=== PATIENT | male | born 1940 | race Caucasian/White ===

== ENCOUNTER 2020-01-18 12:02 | Inpatient (IN) | payer MEDICARE, OTHER, SELFPAY ==
[2020-01-18 12:06] VITALS: BP 142/77; PULSE 83; RESP 16; TEMP 36.6; O2SAT 99; BMI 22.6
--- NOTE | 2020-01-18 12:45 | RAD_ITS ---
EXAM DESCRIPTION: PORTABLE AP CHEST CLINICAL HISTORY: 79 years Male, upper back pain, chest pain upper back pain, chest pain COMPARISON: Previous portable chest obtained on 01/01/2016 FINDINGS: Surgical clips are noted in the right supraclavicular region. There appears to have been a previous right first rib resection. The rest of the thorax is intact. Sternotomy sutures are also seen. There is mild dextroscoliosis noted in the mid thoracic spine. The rest of the thorax is intact.The heart and mediastinum appear to be within normal limits. The lungs appear to be well areated without evidence of pneumonic consolidation or pleural effusion. RAD/Chest 1 View (Portable) IMPRESSION: No acute pathology or change from the prior chest of 01/01/2016 Electronically Signed: Tanmay Bojorquez, at 13:26 EST Tel , Service support ,
--- NOTE | 2020-01-18 12:46 | EKG12_ITS ---
Test Reason : CP Blood Pressure : / mmHG Vent. Rate : 067 BPM Atrial Rate : 100 BPM P-R Int : 000 ms QRS Dur : 134 ms QT Int : 452 ms P-R-T Axes : 076 -56 047 degrees QTc Int : 477 ms Sinus rhythm with 2nd degree A-V block (Mobitz I) Right bundle branch block Left anterior fascicular block Bifascicular block Minimal voltage criteria for LVH, may be normal variant Abnormal ECG Confirmed by CLARISSA CASILLAS ([id number]), research editor MIRIAM WILDER ([id number]) on 01/19/2020 3:02:18 PM Referred By: MARYJANE/FELICIA Confirmed By:CLARISSA CASILLAS
[2020-01-18 13:27] LABS: D-Dimer Quantitative (DVT/PE) 1.51 FEU/ug/m (0.27-0.49)
[2020-01-18] MEDS: 0.9% Normal Saline 1,000 ML 150 ML IV (13:31)
[2020-01-18 13:42] LABS: AST(SGOT) 11 U/L (15-37); Alanine Aminotransfer ALT/SGPT 14 U/L (16-61); Albumin, Serum 3.6 g/dL (3.2-5.0); Alkaline Phosphatase 121 U/L (45-117); Anion Gap 6 (5-15); BUN 38 mg/dL (7-18); BUN/Creat Ratio 18.4 RATIO (10-20); Calcium,Total 9.3 mg/dL (8.5-10.1); Chloride 110 mmol/L (98-107); Creatinine, Serum 2.07 mg/dL (0.70-1.30); EST Glomerular Filtration Rate 33 mL/min (>60); Est Glom Filt Rate - Afr Amer 40 mL/min (>60); Estimated Creatinine Clearance 30.88 ml/min; Globulin 3.7 g/dL (2.2-4.2); Glucose 93 mg/dL (74-106); Lipase 92 U/L (73-393); Potassium 4.6 mmol/L (3.5-5.1); Protein, Total 7.3 g/dL (6.4-8.2); Sodium Level 141 mmol/L (136-145)
--- NOTE | 2020-01-18 13:46 | VDLE_ITS ---
Reason For Study: elevated D-Dimer RIGHT LEFT GSV is normal. GSV is normal. CFV is compressible, spontaneous, phasic, CFV is compressible, spontaneous, phasic, competent and demonstrates normal competent, and demonstrates normal augmentation. augmentation. FV is compressible, spontaneous, phasic, FV is compressible, spontaneous, phasic, competent and demonstrates normal competent and demonstrates normal augmentation. augmentation. POP V is compressible, spontaneous, phasic, POP V is compressible, spontaneous, phasic, competent and demonstrates normal competent and demonstrates normal augmentation. augmentation. T/P Trunk is compressible. T/P Trunk is compressible. PTV is compressible. PTV is compressible. RT PerV is compressible. LT PerV is compressible. Procedure Exam performed portable in ED. The exam was diagnostic. A preliminary report was called and/or faxed to Dr. Campos. Interpretation Summary No evidence for acute deep venous thrombosis bilateral lower extremities with patent and compressible bilateral great saphenous veins. Ordering Physician: Stefania Campos Performed By: Uche Cotton RVT
--- NOTE | 2020-01-18 13:52 | ED.DCSUM_ITS ---
- ER Visit Summary Date of Service: 01/18/20 Chief Complaint: [Chest and back pain] History of Present Illness: The patient is a 79 M [presents the emergency department with chest and back pain that started 2 to 3 days ago. Patient denies any injury. Patient describes it as right-sided and is worse with b reathing. Patient states that it sharp. He is never had pain like this before. Patient states that he ran out of his medications 2 weeks ago and is wondering if it may not be related to that. Patient does have history of coronary artery disease, history of GERD, AAA repair, history of lung cancer, and history of prior DVT. Patient not currently anticoagulated.] Physical Examination: [HEENT-PERRLA, EOMI. Cranial nerves II through XII grossly intact. TMs clear. Mucous membranes moist. No adenopathy. Cardiovascular-regular rate and rhythm without murmur or ectopy Lungs-clear to auscultation, chest wall stable without crepitus or subcu emphysema Abdomen-normoactive bowel sounds, soft, nontender, no rebound or rigidity, no peritoneal signs. Extremities-intact ?4, normal range of motion, normal pulses, atraumatic] Test Results: [EKG obtained arrival shows sinus rhythm with a ventricular rate of 67 bpm with a bifascicular block. CBC with it showing of 8.2, hemoglobin 14, hematocrit 43, plates 186. Chemistries unremarkable. BUN was 38 and creatinine 2.07. Lipase was 92. LFTs were normal. D-dimer was elevated 1.51. Troponin is less than 0.015. Chest x-ray showed nothing acute.] Emergency Department Course and Treatment: [Case was discussed with hospitalist who recommended starting heparin and obtaining venous Dopplers of the lower extremities. Those results will be pending. Patient will be admitted as he may require further evaluation such as VQ scan to evaluate for PE.] Treatment Plan: [Admit] Disposition: [Admit] Impression: [Chest pain-etiology uncertain] This note was generated with [employer] W[employer] ? dictation software. It may contain incorrect words, spelling, and punctuation that were not noted in review of the chart prior to signing ED Disposition - Plan for ED Patient: Referrals: Jarred Vicente MD [Primary Care Provider] -
--- NOTE | 2020-01-18 13:56 | NURSING ---
PCU OBS CP WHITE
--- NOTE | 2020-01-18 14:17 | PCM.HP.STD ---
Problem List (1) Chest pain Status: Acute Qualifiers: Chest pain type: unspecified Qualified Code(s): R07.9 - Chest pain, unspecified (2) Mobitz (type) I (Wenckebach's) atrioventricular block Status: Acute (3) GERD (gastroesophageal reflux disease) Status: Chronic Qualifiers: Esophagitis presence: esophagitis presence not specified Qualified Code(s): K21.9 - Gastro-esophageal reflux disease without esophagitis (4) CAD (coronary artery disease) Status: Chronic Qualifiers: Coronary Disease-Associated Artery/Lesion type: unspecified vessel or lesion type [place] vs. transplanted heart: unspecified whether [place] or transplanted heart Associated angina: angina presence unspecified Qualified Code(s): I25.10 - Atherosclerotic heart disease of [place] coronary artery without angina pectoris (5) History of malignant neoplasm of bronchus and lung Status: Chronic (6) History of venous thrombosis and embolism Status: Chronic (7) Aortocoronary bypass status Status: Chronic (8) AAA (abdominal aortic aneurysm) Status: Chronic Qualifiers: Presence of rupture: without rupture Qualified Code(s): I71.4 - Abdominal aortic aneurysm, without rupture History of Present Illness Date of Admission: 01/18/20 Chief Complaint: Chest pain, dyspnea The patient is a 79 y/o M w/ PMHx: GERD, Hx DVT, CAD s/p CABG x 4 2005, HTN, HLD, Former Tobacco use, Hx AAA s/p repair, Hx Lung CA s/p chemotherapy and partial RUL lobectomy w/ rib portion x 2 resected concurrently who presents to the [facility] ED on 01/18/20 with history of unfortunately missing several of his medications including his beta-christiano therapy x2 weeks secondary to need of refills with onset since chest pressure in the central region with radiation towards his back in the mid region between the scapula, intermittent, at its worse 7 out of 8 in severity with no radiation to the extremity specifically and no specific nausea, emesis, diaphoresis but noted sensation of dyspnea, unclear if worse with activity prompting eventual ED presentation. He notes that the onset was following lack of his medications. Work-up in the ED included T 97.8, heart rate 83 but in the ED varied into the 50s to 80s, BP 142/77, respiratory rate 16, 99% on room air, d-dimer 1.51, CMP with chloride 110, BUN/creatinine 38/2.07, AST/ALT 11/14, alk phos 121, troponin less than 0.015, lipase 92, chest x-ray with no acute cardial pulmonary findings, duplex ultrasound bilateral lower extremities with no evidence of acute DVT with patent and compressible bilateral greater saphenous veins, EKG with sinus rhythm with a rate of 67 with a bifascicular block with evidence of new onset Mobitz type I. In the ED given ED high suspicion of possible pulmonary embolism as etiology patient initiated on heparin drip with planned VQ scan given renal dysfunction. Upon evaluation of EKG did note new onset Mobitz type I and reviewed with cardiology as some concern given his presentation whether or not this would be symptomatic with plan continued hold of patient's beta-christiano therapy and continue telemetry monitoring. Past Medical History Past Medical History (Chronic Problems): Chronic Problems GERD (gastroesophageal reflux disease) (Chronic) CAD (coronary artery disease) (Chronic) History of malignant neoplasm of bronchus and lung (Chronic) History of venous thrombosis and embolism (Chronic) History of tobacco use (Chronic) History of esophageal reflux (Chronic) History of emphysema (Chronic) History of colitis (Chronic) Aortocoronary bypass status (Chronic) AAA (abdominal aortic aneurysm) (Chronic) Allergies No Known Allergies Allergy (Verified 03/27/16 13:53) Home Medications: Ambulatory Orders Medication Instructions Recorded Aspirin [Aspirin, Baby] 81 mg PO DAILY@0800 01/01/16 Esomeprazole Mag Trihydrate 40 mg PO DAILY 01/01/16 [Nexium] Meloxicam [Mobic] 15 mg PO DAILY 03/27/16 Metoprolol Tartrate [Lopressor 25 mg PO DAILY 03/27/16 (Beta Christiano)] Simvastatin 80 mg PO QHS 01/18/20 Surgical History: coronary bypass surgery, TURP, - - FH x4, partial right upper lobe lobectomy as well as 2 rib partial resections, AAA repair, TURP. Psychiatric History: No pertinent psych hx Lives: Spouse/ Significant Other Smoking Status: Former smoker - Patient quit cigarette tobacco usage and 1992 with prior to this approximately 1 pack/day since he was in his early teenage years. Tobacco Use: Non-smoker Alcohol: Occasional Drugs: None - *Family History Maternal History Items: - - Patient notes that his mother at age 79, unclear specific family history, denies any specific heart disease, diabetes or cancer. Paternal History Items: - - Patient notes his father passed at age 97, no specific health history, denies any heart disease, diabetes or cancer. Review of Systems Constitutional: Reports: Malaise, Weakness, Fatigue. Denies: Anorexia, Chills, Fever, Weight Change HEENT: Denies: Head Aches, Sinus Congestion, Sinus Drainage Cardiovascular: Reports: Chest Pain, Chest Pressure. Denies: Chest Tightness, Light Headedness, Orthopnea, Palpitations, Syncope Respiratory: Reports: Shortness of Breath, Shortness of breath upon exertion. Denies: Cough, Shortness of breath at rest, Sputum production Gastrointestinal: Denies: Abdominal Pain, Nausea, Vomiting Genitourinary: Denies: Dysuria Musculoskeletal: Reports: Back Pain, Joint Pain. Denies: Joint Tenderness Skin: Denies: Rash, Wounds Neurological: Denies: Numbness, Tingling, Focal weakness Psychiatric: Denies: Anxiety, Depression, Homicidal Ideations, Suicidal Ideations Hematologic/ Lymphatic: Reports: Easy Bruising. Denies: Easy Bleeding VTE Information - Inpt Only VTE Present on Admission: No VTE Mechan Device Prophylaxis: SCD's VTE Pharm Prophylaxis ordered?: Yes Patient Problems: Active and Suspected Problems Chest pain (Acute) Mobitz (type) I (Wenckebach's) atrioventricular block (Acute) Subjective: Patient seated upright in the ED bed, fatigued appearance, notes ongoing discomfort to his chest and back at this time. Objective: Physical Examination: General: awake, alert, oriented x 3 and cooperative, seated upright in the ED bed, mildly uncomfortable appearing, no acute distress. Skin: normal color, turgor, no icterus, cyanosis. HEENT: AT/NC, EOMI, PERRLA, MMM, no carotid bruits or JVD noted. Lungs: CTA bilaterally, moderate effort, moderate decrease BL bases, no rales, ronchi or wheezing. Heart:Currently mildly bradycardic with regular rhythm; no gallop, rub audible. Abdomen: soft, NTTP, ND, normal BS, no HSM. Extremities: no cyanosis, clubbing, or edema. Neurological: patient awake, alert, oriented x 3; cognitive function intact; pupils equally reactive to light and accomodation; cranial nerves II-XII grossly normal, moving all 4 extremities, no focal deficits, strength moderately global decrease secondary to acute presentation and complaints. Psychiatric: affect appears fatigued, no acute evidence of depressive or anxiety feelings. - Physical Exam Vitals/I&O's: Vital Signs Temp Pulse Resp BP Pulse Ox 97.8 F 83 16 142/77 H 99 01/18/20 12:06 01/18/20 12:06 01/18/20 12:06 01/18/20 12:06 01/18/20 12:06 Oxygen Delivery Method Room Air Weight: 172 lb Body Mass Index (BMI) 22.6 Laboratory Results 01/18/20 13:00: D-Dimer Quant (PE/DVT) 1.51 H* 01/18/20 13:00: Sodium 141, Potassium 4.6, Chloride 110 H, Carbon Dioxide 25.0, Anion Gap 6, BUN 38 H, Creatinine 2.07 H, Estim Creat Clear Calc 30.88, Est GFR (MDRD) Af Amer 40 L, Est GFR (MDRD) Non-Af 33 L, BUN/Creatinine Ratio 18.4, Glucose 93, Calcium 9.3, Total Bilirubin 0.90, AST 11 L, ALT 14 L, Alkaline Phosphatase 121 H, Troponin I < 0.015, Total Protein 7.3, Albumin 3.6, Globulin 3.7, Albumin/Globulin Ratio 1.0, Lipase 92 Current Medications Heparin Sodium (Porcine) (Heparin Na) 0 unit IV UD PRN; Protocol Sodium Chloride () 1,000 mls @ 150 mls/hr IV .[id number] [facility] Last Admin: 01/18/20 13:31 Dose: 150 mls/hr Documented by: Heparin Sodium/Dextrose () 25,000 units in 250 mls @ 11 mls/hr IV .[id number] [facility]; Protocol Assessment/Plan All Active Problems Chest pain (Acute) Mobitz (type) I (Wenckebach's) atrioventricular block (Acute) The patient is a 79 y/o M w/ PMHx: GERD, Hx DVT, CAD s/p CABG x 4 2005, HTN, HLD, Former Tobacco use, Hx AAA s/p repair, Hx Lung CA s/p chemotherapy and partial RUL lobectomy w/ rib portion x 2 resected concurrently who presents to the [facility] ED on 01/18/20 with history of unfortunately missing several of his medications including his beta-christiano therapy x2 weeks secondary to need of refills with onset since chest pressure in the central region with radiation towards his back in the mid region between the scapula, intermittent, at its worse 7 out of 8 in severity with no radiation to the extremity specifically and no specific nausea, emesis, diaphoresis but noted sensation of dyspnea, unclear if worse with activity prompting eventual ED presentation. 1. Chest Pain, Dyspnea, Unclear specific etiology with New Onset Mobitz Type I HB, ? Pulmonary Embolism given hx prio VTE: Work-up in the ED included T 97.8, heart rate 83 but in the ED varied into the 50s to 80s, BP 142/77, respiratory rate 16, 99% on room air, d-dimer 1.51, CMP with chloride 110, BUN/creatinine 38/2.07, AST/ALT 11/14, alk phos 121, troponin less than 0.015, lipase 92, chest x-ray with no acute cardial pulmonary findings, duplex ultrasound bilateral lower extremities with no evidence of acute DVT with patent and compressible bilateral greater saphenous veins, EKG with sinus rhythm with a rate of 67 with a bifascicular block with evidence of new onset Mobitz type I. Will admit to PCU, place on a monitored bed to assure no acute myocardial infarction with serial cardiac enzymes and EKGs. Given duplex ultrasound of lower extremities unremarkable will pursue VQ scan in a.m. We will continue heparin drip in interim. Continue to hold beta-christiano therapy per discussion with cardiology was consulted and will evaluate given symptomatic presentation with new heart block. If VQ scan unremarkable may need to consider stress testing. ASA, NG, morphine. 2. CAD: Status post CABG x4 in 2005, continue aspirin, holding beta-christiano therapy given new onset Mobitz type I, continue statin therapy. 3. Hypertension: Holding beta-christiano therapy, in interim PRN hydralazine. 4. Hyperlipidemia: Continue home statin regimen. AM FLP. 5. History of lung cancer, unclear type: Status post chemotherapy as well as partial right upper lobe lobectomy and rib portion x2 resection, remission, stable. 6. Former tobacco use: Encouraged continued tobacco cessation. 7. Hx AAA: s/p repair, stable, follows w/ Dr. Tapia for routine evaluation. 8. GERD: Continue home PPI. 9. DVT prophylaxis: SCDs, continue heparin drip pending VQ scan. 10. CODE status: Patient HCPOA is his significant who is present as well as his sister and living will is currently in place. Discussed CODE status at length including difference between FULL code, DNR-CCA and DNR-CC status. Following discussions about the differences in these status, requested DNR-CCA, no intubation. Advanced Care Planning Face to Face Time: 16 minutes. Code Visit OBSV E&M: 55147 Initial observation care L3 Procedures: 04263 Advncd Care Plan 30 Min
[2020-01-18] MEDS: HEPARIN/D5w 25,000 UNITS 25,000 UNITS/250 ML IV.SOLN. 11 UNITS IV (14:34)
[2020-01-18] MEDS: Heparin Injection (Vial) 5,000 UNIT/ML VIAL 5000 UNIT IV (14:37)
--- NOTE | 2020-01-18 15:25 | NM_ITS ---
CLINICAL: Male, 79 years old. LUNG CANCER RIGHT LUNG -- PARTIAL LUNG RESECTION -- SOB -- ELEVATED D-DIMER NUCLEAR VENTILATION/PERFUSION - LUNG TECHNIQUE: The patient was administered 6 mCi of Tc MAA followed by a perfusion lung scan. The patient was administered 40.7 mCi of DTPA followed by a ventilation lung scan. Comparison made to prior chest radiograph dated . COMPARISON STUDIES : CR - prior portable chest obtained on 01/18/2020. FINDINGS: The pulmonary perfusion study demonstrates decreased perfusion in the lung apices bilaterally which is matched on the left and is consistent with severe COPD. On the right side, the patient has had a pulmonary resection involving the right upper lobe and this accounts for some decreased perfusion in the right upper lobe.. There are no demonstrated segmental or subsegmental perfusion defects The ventilation study demonstrates mildly matching defects in the lung apices bilaterally again due to the previous right upper lobe pulmonary resection and COPD in the left lung apex. NM/Lung Scan Vent/Perf IMPRESSION: Low probability for pulmonary embolism with matching defects in the lung apices bilaterally due to combination of COPD and a previous right apical pulmonary partial pneumonectomy Electronically Signed: Tanmay Bojorquez, at 11:20 EST Tel , Service support ,
--- NOTE | 2020-01-18 15:25 | EKG12_ITS ---
Test Reason : CP ADMIT Blood Pressure : / mmHG Vent. Rate : 055 BPM Atrial Rate : 081 BPM P-R Int : 000 ms QRS Dur : 130 ms QT Int : 454 ms P-R-T Axes : 068 -62 051 degrees QTc Int : 434 ms Sinus rhythm with 2nd degree A-V block (Mobitz I) Left axis deviation Right bundle branch block Abnormal ECG When compared with ECG of 27-MAR-2016 13:30, Sinus rhythm is now with 2nd degree A-V block (Mobitz I) Minimal criteria for Inferior infarct are no longer Present Confirmed by ELADIO MELO, LYLE ([id number]), editorial assistant RAMOS KNAPP ([id number]) on 01/24/2020 9:02:07 AM Referred By: SHERRON Confirmed By:DEVORAH HENDRICKS MD
--- NOTE | 2020-01-18 15:25 | ECHOD_ITS ---
Reason For Study: CHEST PAIN Procedure This was a 2D Doppler, Color Flow transthoracic echocardiogram. The exam was of adequate technical quality. Exam performed portable in patient room. Left Ventricle Normal LV size. Sigmoid septum. Left ventricular systolic function is normal. The estimated ejection fraction is 65 %. Diastolic function is indeterminate. No regional wall motion abnormalities noted. Right Ventricle Normal RV size. Normal systolic function. Atria Normal left atrium. Normal right atrium. No doppler evidence for ASD. Mitral Valve There is no mitral annular calcification. Normal mitral valve. Trivial mitral valve insufficiency. Tricuspid Valve Normal tricuspid valve. Mild to moderate (1-2+) tricuspid valve insufficiency. Right ventricular systolic pressure estimated to be 39 mmHg. Aortic Valve Trisinus/trileaflet aortic valve. Normal aortic valve. Trivial eccentric aortic valve insufficiency. Pulmonic Valve The pulmonic valve is not well visualized. Mild (1+) eccentric pulmonic valve insufficiency. Great Vessels Normal sized aortic root. Pericardium/Pleural No pericardial effusion. MMode/2D Measurements & Calculations LVIDd: 4.3 cm IVSd: 1.1 cm Ao root diam: 3.3 cm LVIDs: 3.0 cm LVPWd: 1.1 cm RVDd: 2.9 cm FS: 30.9 % LAV(MOD-bp): 31.2 ml LA A4 area: 12.8 cm2 LA dimension(2D): 3.7 cm LAV(MOD-bp) Indexed: 16.3 ml/m2 LAV(MOD-sp2): 33.9 ml LAV(MOD-sp4): 27.5 ml RA A4 area: 10.8 cm2 Time Measurements MV dec time: 0.31 sec Doppler Measurements & Calculations MV E max rey: 48.6 cm/sec Lat Peak E' Rey: 9.9 cm/sec Med Peak E' Rey: 5.9 cm/sec MV A max rey: 61.2 cm/sec E/E' lat: 4.9 E/E' med: 8.2 MV E/A: 0.79 Ao V2 max: 144.0 cm/sec LV V1 max: 126.8 cm/sec PA V2 max: 145.7 cm/sec Ao max P.3 mmHg LV V1 max P.4 mmHg PI end-d rey: 107.3 cm/sec TR max rey: 298.7 cm/sec TR max P.7 mmHg Interpretation Summary Left ventricular systolic function is normal. The estimated ejection fraction is 65 %. Sigmoid septum. Trivial mitral valve insufficiency. Mild to moderate (1-2+) tricuspid valve insufficiency. Trivial eccentric aortic valve insufficiency. Mild (1+) eccentric pulmonic valve insufficiency. Right ventricular systolic pressure estimated to be 39 mmHg. Diastolic function is indeterminate. Ordering Physician: Melida Acharya Referring Physician: GEORGE FERNANDES Performed By: Roxanna Grant, RDCS, RVT
[2020-01-18 15:33] VITALS: PULSE 56
[2020-01-18 15:41] VITALS: BP 127/70; PULSE 53; RESP 16; TEMP 36.7; O2SAT 98; BMI 20.6
[2020-01-18 15:50] VITALS: BMI 20.6
[2020-01-18] MEDS: guaiFENesin 10 ML UDC (200MG/10ML) 20 ML PO (16:01)
[2020-01-18] MEDS: BENZOCAINE/MENTHOL 1 LOZENGE MUCOUS MEM (16:01)
[2020-01-18 16:10] LABS: Magnesium 1.8 mg/dL (1.6-2.6)
[2020-01-18] MEDS: HYDROcodone Bitartrate/Apap 5/325 Tablet PO (18:21)
[2020-01-18 19:00] VITALS: PULSE 66
--- NOTE | 2020-01-18 19:43 | CON.PCM_ITS ---
Problem List (1) Atrioventricular conduction disorder Status: Acute (2) PAF (paroxysmal atrial fibrillation) Status: Acute (3) CAD (coronary artery disease) Status: Chronic Qualifiers: Coronary Disease-Associated Artery/Lesion type: unspecified vessel or lesion type [place] vs. transplanted heart: unspecified whether [place] or transplanted heart Associated angina: angina presence unspecified Qualified Code(s): I25.10 - Atherosclerotic heart disease of [place] coronary artery without angina pectoris (4) Aortocoronary bypass status Status: Chronic (5) AAA (abdominal aortic aneurysm) Status: Chronic Qualifiers: Presence of rupture: without rupture Qualified Code(s): I71.4 - Abdominal aortic aneurysm, without rupture (6) HLD (hyperlipidemia) Status: Chronic (7) History of malignant neoplasm of bronchus and lung Status: Chronic (8) History of venous thrombosis and embolism Status: Chronic (9) Renal insufficiency Status: Chronic Reason for Consult Date of Consultation: 01/18/20 History of Present Illness: The patient is a 79 year old white male with a past cardiovascular history which is included underlying paroxysmal atrial fibrillation, CAD, status post CABG, abdominal aortic aneurysm status post repair, hyperlipidemia, history of lung carcinoma status post therapy, history of thromboembolic disease, who is now referred for evaluation of AV conduction system disorder superimposed upon ongoing evaluation for chest/back discomfort and an elevated d-dimer level concerning for possible thromboembolic disease. The patient states that he has not been evaluated by his primary care physician for quite some time. He states he was told recently he needed to appear for an outpatient appointment, as he had not been evaluated for quite some time, prior to his medications being refilled. He states he refused to do so because he felt fine . Thus his medications ran out with the exception of his PPI and his statin. He states he has been without his medications including his beta-christiano for at least 2 weeks. Since that time he believes he has noted a combination of chest and back discomfort. He states it is right-sided. It is somewhat chronic in nature. It bothers him in different positions. He states he does not sleep well at night because of it. He has not complained of other forms of chest discomfort, worsening shortness of breath/dyspnea, nausea, emesis, or diaphoresis. He has had no peripheral pitting edema. He does not recall having any palpitations. There has been no near syncope or syncope. He presented to the emergency department this day based upon his ongoing symptoms. His evaluation included negative troponin I levels. His d-dimer was abnormal. He was to be considered for further evaluation of thromboembolic disease with a chest CT scan although his creatinine level was elevated. Thus he was placed on IV heparin therapy and underwent a lower extremity venous duplex study which was negative. He is pending further evaluation with a VQ scan. In the interim his ECG demonstrated findings compatible with underlying sinus rhythm with a right bundle branch block pattern and subsequent cardiac rhythm findings compatible with second-degree AV block Mobitz 1 and after being placed in the PCU cardiac rhythm patterns combined to include his second-degree AV block Mobitz 1 as well as the appearance of an underlying 2-1 AV block. [] Past Medical History Allergies/Adverse Reactions: Allergies No Known Allergies Allergy (Verified 03/27/16 13:53) Home Medications: Ambulatory Orders Medication Instructions Recorded Aspirin [Aspirin, Baby] 81 mg PO DAILY@0800 01/01/16 Esomeprazole Mag Trihydrate 40 mg PO DAILY 01/01/16 [Nexium] Meloxicam [Mobic] 15 mg PO DAILY 03/27/16 Metoprolol Tartrate [Lopressor 25 mg PO DAILY 03/27/16 (Beta Christiano)] Simvastatin 80 mg PO QHS 01/18/20 Past Medical History (Chronic Problems): Chronic Problems GERD (gastroesophageal reflux disease) (Chronic) CAD (coronary artery disease) (Chronic) HLD (hyperlipidemia) (Chronic) Renal insufficiency (Chronic) History of malignant neoplasm of bronchus and lung (Chronic) History of venous thrombosis and embolism (Chronic) History of tobacco use (Chronic) History of esophageal reflux (Chronic) History of emphysema (Chronic) History of colitis (Chronic) Aortocoronary bypass status (Chronic) AAA (abdominal aortic aneurysm) (Chronic) Surgical History: coronary bypass surgery, TURP, - - FH x4, partial right upper lobe lobectomy as well as 2 rib partial resections, AAA repair, TURP. Psychiatric History: No pertinent psych hx - *Family History Maternal History Items: - - Patient notes that his mother at age 79, unclear specific family history, denies any specific heart disease, diabetes or cancer. Paternal History Items: - - Patient notes his father passed at age 97, no specific health history, denies any heart disease, diabetes or cancer. Lives: Spouse/ Significant Other Smoking Status: Former smoker - Patient quit cigarette tobacco usage and 1992 with prior to this approximately 1 pack/day since he was in his early teenage years. Tobacco Use: Non-smoker Alcohol: Occasional Drugs: None Review of Systems - Review of Systems General: Denies: Fever, Night Sweats, Fatigue Cardiovascular: Reports: Chest Discomfort. Denies: Shortness of Breath, Orthopnea, PND, Peripheral Edema, Palpitations, Lightheadedness, Dizziness, Near Syncope, Syncope Respiratory: Denies: Cough, Sputum Production, Hemoptysis Gastrointestinal: Reports: Dyspepsia. Denies: Hematemesis, Hematochezia, Melena Genitourinary: Denies: Dysuria, Hematuria Muscoloskeletal: Reports: Back Pain Skin: Denies: Rash Subjectve: This is a thin 79-year-old white male who appears to be resting reasonably comfortably at the moment in no acute distress. Objective: Vital Signs Temp Pulse Resp BP Pulse Ox 98.0 F 53 L 16 127/70 H 98 01/18/20 15:41 01/18/20 15:41 01/18/20 15:41 01/18/20 15:41 01/18/20 15:41 Oxygen Delivery Method Room Air Weight: 151 lb 14.376 oz Body Mass Index (BMI) 20.6 Intake and Output for Last 24 Hours 01/16/20 01/17/20 01/18/20 23:59 23:59 23:59 Intake Total 692.5 / 692.5 Balance 692.5 / 692.5 General: Awake, Alert, Oriented x 3, Cooperative, No Acute Distress HEENT: Atraumatic, Normocephalic, PERRL, EOMI, Sclera Non Icteric Oral: Poor Dentition Neck: Supple, Good ROM, No JVD Lungs: Clear to auscultation Cardiovascular: Regular Rhythm, Normal S1, Normal S2 Abdomen: Bowel Sounds Present, Soft, Non Tender Extremities: No edema Psych/Mental Status: Appropriate 01/18/20 13:00: D-Dimer Quant (PE/DVT) 1.51 H* 01/18/20 13:00: Sodium 141, Potassium 4.6, Chloride 110 H, Carbon Dioxide 25.0, Anion Gap 6, BUN 38 H, Creatinine 2.07 H, Est GFR (MDRD) Af Amer 40 L, Est GFR (MDRD) Non-Af 33 L, BUN/Creatinine Ratio 18.4, Glucose 93, Calcium 9.3, Total Bilirubin 0.90, Troponin I < 0.015 01/18/20 13:00: Magnesium 1.8 01/18/20 16:03: Troponin I < 0.015 Rhythm: As noted above EKG: As noted above ECHO: Left ventricle normal with an LVEF of 55% Mild MR Mild TR Mild aortic valve insufficiency Estimated RV systolic pressure 41 mmHg Stress Test: 06-06-2011 Pharmacologic stress nuclear imaging study considered abnormal with evidence of inferolateral ischemia and an LVEF of 60% Cardiac Cath: 05-31-2011 Left ventricle normal with an LVEF of 60% Left main coronary artery with distal 50% stenosis LAD with ostial 25% stenosis in proximal 95% stenosis and mid 75% stenosis LCx with ostial 50% stenosis OM 2 with 50 to 75% stenosis RCA with mid 85% stenosis Right to left collateral flow from the LAD to the RCA distribution Left subclavian artery with proximal 25% stenosis Left carotid artery with ostial 50% stenosis CARD patent Abdominal aortic tortuous with findings compatible with an infrarenal dilatation/aneurysm CT Surgery: 06-03-2011: [facility]: CARD to the LAD; SVG to the lateral circumflex; SVG to the diagonal branch; SVG to the RCA CXR: Preliminary evaluation: Status post open heart surgery changes; no acute cardiopulmonary disease process appreciated; please see official report Assessment/Plan 1. AV conduction system disorder The patient has findings compatible with underlying AV conduction system disorder with second-degree AV block Mobitz 1 as well as findings compatible with 2-1 AV block (a form of high-grade AV block). It is unclear as to how long these findings have been present as the patient has not presented for outpatient cardiovascular evaluation since his most recent outpatient cardiovascular visit on 10-18-2013. It is also unclear as to whether or not he has had any follow-up PCP evaluation with objective studies that would have captured his underlying cardiac rhythm. He has been without his beta-christiano for approximately 2 weeks. He continues with the aforementioned conduction system findings. This raises concern as to whether this is progression of his underlying cardiovascular electrical system disease process versus being related to a additional cardiovascular process or noncardiac process. At the present time he is being monitored. He is remaining without his beta- blockers or other rate limiting medications. He is going to be further evaluated from a cardiac standpoint with a transthoracic echocardiogram to reassess his left ventricular wall motion and systolic function. He is also going to be further evaluated from a noncardiac standpoint with a VQ scan to evaluate for any thromboembolic disease may be contributing to these findings. Depending upon his clinical course he may need additional cardiovascular studies noninvasive or invasive. However, he may need to be considered for EP consultation for consideration for permanent pacemaker placement based upon the concerns of 2-1 AV block being a form of high-grade AV block. If he does require permanent pacemaker placement while he is hospitalized, then, if there is no one present at [facility] to place a permanent pacemaker he may need to be transferred to a tertiary care center such as [facility] where he had his previous cardiovascular procedures performed (i.e.: CT surgery) for further EP evaluation and care. 2. Paroxysmal atrial fibrillation The patient has a remote history of paroxysmal atrial fibrillation. At the present time he will be monitored for any recurrence of any atrial dysrhythmias. He remains off her rate limiting medication and anticoagulant therapy at this time. 3. CAD status post CABG Thus far the patient has had no evidence of an acute coronary syndrome. He states he has been staying on his [id number] aspirin therapy. He can be treated with additional medication as deemed appropriate although medicine such as beta-blockers are on hold at this time based upon the concern of his conduction system disorder. He will have a follow-up echocardiogram to reassess his left ventricular wall motion systolic function. Depending upon his clinical course he may or may not need further noninvasive or invasive evaluation of his coronary/graft anatomy. However, if he does need invasive evaluation of his coronary/graft status there is concern based on his elevated creatinine level with respect to IV contrast related nephropathy. 4. Abdominal aortic aneurysm status post repair He has had a remote abdominal aortic aneurysm repair. He states he does not follow with any peripheral vascular surgeon at this time. 5. Hyperlipidemia He states he has been taking his lipid-lowering medication. 6. History of lung carcinoma He states that he is now greater than 10 years since his lung carcinoma diagnosis. He states he has not required further follow-up. 7. History of thromboembolic events He does have a history of thromboembolic events. He is at an increased risk based upon his history of lung carcinoma. He is going to undergo further evaluation for the possibility of recurrent thromboembolic events leading to his symptoms and his elevated d-dimer studies. As his creatinine level is increased this is going to be done with a VQ scan. In the interim he is on IV heparin therapy. 8. Renal insufficiency He does have renal insufficiency. This has to be taken into consideration with adjustment of medications as well as other diagnostic studies utilizing IV contrast which could lead to IV contrast related nephropathy. Comment: The patient's case was discussed at length with the patient, his female significant other, and Dr. Acharya. This note was generated using a voice recognition system and there may be incorrect words, spelling or punctuation that were not noted when reviewing the office note prior to saving.
[2020-01-18 20:45] LABS: Partial Thromboplast Time 207.4 Seconds (24.1-36.2)
[2020-01-18 21:40] VITALS: BP 138/81; PULSE 53; RESP 16; TEMP 36.7; O2SAT 99
[2020-01-18] MEDS: Atorvastatin Calcium 40 MG Tablet PO (21:58)
[2020-01-19] MEDS: MELATONIN 3 MG TABLET PO (02:19)
[2020-01-19 02:59] VITALS: PULSE 66
[2020-01-19 03:00] VITALS: BP 105/74; PULSE 61; RESP 17; TEMP 36.7; O2SAT 100
[2020-01-19 03:17] LABS: Absolute Lymphocyte Count 1.94 X10^3/uL (0.83-4.51); Absolute Neutrophil Count 6.3 X10^3/uL (2.0-7.7); Basophil# 0.03 X10^3/uL; Basophil% 0.3 % (0-1); Eosinophil# 0.45 X10^3/uL; Eosinophils% 4.7 % (0-5); Hematocrit 32.5 % (40-54); Hemoglobin 10.6 g/dL (13.0-16.5); Lymphocyte # 1.94 X10^3/ul (4.0); Lymphocyte % 20.1 % (19-41); Mean Corp Hgb Conc 32.6 g/dL (32-36); Mean Corpuscular Hgb 31.3 pg (27.0-32.0); Mean Corpuscular Volume 95.9 fL (80-94); Mean Platelet Vol. 11.8 fl (6.2-12.0); Monocyte# 0.89 X10^3/uL; Monocyte% 9.2 % (0-10); NRBC Flagged by Analyzer 0 % (0-5); Neutrophil # 6.27 X10^3/uL (2.7-7.7); Neutrophil % 64.9 % (47-70); Platelet Count 185 K/mm3 (150-450); RBC Distribution Width CV 13.3 % (11.6-14.6); RBC Distribution Width SD 47.5 fl (35.1-43.9); Red Blood Count 3.39 M/mm3 (4.6-6.2); White Blood Count 9.7 K/mm3 (4.4-11.0)
[2020-01-19 03:31] LABS: Anion Gap 6 (5-15); BUN 45 mg/dL (7-18); BUN/Creat Ratio 22.4 RATIO (10-20); Calcium,Total 8.1 mg/dL (8.5-10.1); Chloride 110 mmol/L (98-107); Creatinine, Serum 2.01 mg/dL (0.70-1.30); EST Glomerular Filtration Rate 34 mL/min (>60); Est Glom Filt Rate - Afr Amer 41 mL/min (>60); Estimated Creatinine Clearance 28.09 ml/min; Glucose 98 mg/dL (74-106); Potassium 4.2 mmol/L (3.5-5.1); Sodium Level 141 mmol/L (136-145)
[2020-01-19 07:00] VITALS: PULSE 71
[2020-01-19 07:39] VITALS: O2SAT 98
[2020-01-19 09:43] LABS: Partial Thromboplast Time 48.5 Seconds (24.1-36.2)
--- NOTE | 2020-01-19 09:52 | PN.CARD_ITS ---
Subjectve: The patient continues with his chronic right-sided chest/back discomfort. He states there is been no significant change. Objective: Vital Signs Temp Pulse Resp BP Pulse Ox 98.0 F 71 17 105/74 98 01/19/20 03:00 01/19/20 07:00 01/19/20 03:00 01/19/20 03:00 01/19/20 07:39 Oxygen Delivery Method Room Air Weight: 151 lb 14.376 oz Body Mass Index (BMI) 20.6 Intake and Output for Last 24 Hours 01/17/20 01/18/20 01/19/20 23:59 23:59 23:59 Intake Total 1001.43 / 1001.43 137.33 / 137.33 Output Total 50 / 50 120 / 120 Balance 951.43 / 951.43 17.33 / 17.33 General: Awake, Alert, Oriented x 3, Cooperative, No Acute Distress HEENT: Atraumatic, Normocephalic, PERRL, EOMI, Sclera Non Icteric Oral: Poor Dentition Neck: Supple, Good ROM, No JVD Chest Wall: Midline Sternotomy Incision Lungs: Clear to auscultation Cardiovascular: Regular Rhythm, Normal S1, Normal S2 Abdomen: Bowel Sounds Present, Soft, Non Tender Extremities: No edema Psych/Mental Status: Appropriate 01/18/20 13:00: D-Dimer Quant (PE/DVT) 1.51 H* 01/18/20 13:00: Sodium 141, Potassium 4.6, Chloride 110 H, Carbon Dioxide 25.0, Anion Gap 6, BUN 38 H, Creatinine 2.07 H, Est GFR (MDRD) Af Amer 40 L, Est GFR (MDRD) Non-Af 33 L, BUN/Creatinine Ratio 18.4, Glucose 93, Calcium 9.3, Total Bilirubin 0.90, Troponin I < 0.015 01/18/20 13:00: Magnesium 1.8 01/18/20 16:03: Troponin I < 0.015 01/18/20 20:09: APTT 207.4 H* 01/18/20 20:09: Troponin I < 0.015 01/19/20 02:58: WBC 9.7, RBC 3.39 L, Hgb 10.6 L, Hct 32.5 L, MCV 95.9 H, MCH 31.3, MCHC 32.6, Plt Count 185, MPV 11.8, Immature Gran % (Auto) 0.800, Neut % (Auto) 64.9, Lymph % (Auto) 20.1, [place] % (Auto) 9.2, Eos % (Auto) 4.7, Baso % (Auto) 0.3, Absolute Neuts (auto) 6.3, Nucleated RBC % 0 01/19/20 02:58: Sodium 141, Potassium 4.2, Chloride 110 H, Carbon Dioxide 25.0, Anion Gap 6, BUN 45 H, Creatinine 2.01 H, Est GFR (MDRD) Af Amer 41 L, Est GFR (MDRD) Non-Af 34 L, BUN/Creatinine Ratio 22.4 H, Glucose 98, Calcium 8.1 L 01/19/20 02:58: APTT 105.0 H* 01/19/20 09:25: APTT 48.5 H Rhythm: Sinus rhythm; second-degree AV block Mobitz 1 Medical Necessity - Tobacco Use Smoking Status: Former smoker - Patient quit cigarette tobacco usage and 1993 with prior to this approximately 1 pack/day since he was in his early teenage years. Tobacco Use: Non-smoker Assessment/Plan 1. AV conduction system disorder The patient has findings compatible with underlying AV conduction system disorder with second-degree AV block Mobitz 1 as well as findings compatible with 2-1 AV block (a form of high-grade AV block). It is unclear as to how long these findings have been present as the patient has not presented for outpatient cardiovascular evaluation since his most recent outpatient cardiovascular visit on 10-18-2013. It is also unclear as to whether or not he has had any follow-up PCP evaluation with objective studies that would have captured his underlying cardiac rhythm. He has been without his beta-haydee for approximately 2 weeks. This raises concern as to whether this is progression of his underlying cardiovascular electrical system disease process versus being related to a additional cardiovascular process or noncardiac process. At the present time he is being monitored. He is remaining without his beta- blockers or other rate limiting medications. He is going to be further evaluated from a cardiac standpoint with a transthoracic echocardiogram to reassess his left ventricular wall motion and systolic function. He is also going to be further evaluated from a noncardiac standpoint with a VQ scan to evaluate for any thromboembolic disease may be contributing to these findings. Depending upon his clinical course he may need additional cardiovascular studies noninvasive or invasive. However, he may need to be considered for EP consultation for consideration for permanent pacemaker placement based upon the concerns of 2-1 AV block being a form of high-grade AV block. If he does require permanent pacemaker placement while he is hospitalized, then, if there is no one present at [facility] to place a permanent pacemaker he may need to be transferred to a tertiary care center such as [facility] where he had his previous cardiovascular procedures performed (i.e.: CT surgery) for further EP evaluation and care. The above was discussed with the patient. At the present time the patient states that he does not believe he has any ongoing cardiovascular issues. He states that he may not want to proceed with permanent pacemaker placement either locally or at a tertiary care center. He will wait and see how his clinical course progresses, what his studies show, and then make a decision. 2. Paroxysmal atrial fibrillation The patient has a remote history of paroxysmal atrial fibrillation. At the present time he will be monitored for any recurrence of any atrial dysrhythmias. He remains off her rate limiting medication and anticoagulant therapy at this time. 3. CAD status post CABG Thus far the patient has had no evidence of an acute coronary syndrome. He states he has been staying on his [id number] aspirin therapy. He can be treated with additional medication as deemed appropriate although medicine such as beta-blockers are on hold at this time based upon the concern of his conduction system disorder. He will have a follow-up echocardiogram to reassess his left ventricular wall motion systolic function. Depending upon his clinical course he may or may not need further noninvasive or invasive evaluation of his coronary/graft anatomy. However, if he does need invasive evaluation of his coronary/graft status there is concern based on his elevated creatinine level with respect to IV contrast related nephropathy. 4. Abdominal aortic aneurysm status post repair He has had a remote abdominal aortic aneurysm repair. He states he does not follow with any peripheral vascular surgeon at this time. 5. Hyperlipidemia He states he has been taking his lipid-lowering medication. 6. History of lung carcinoma He states that he is now greater than 10 years since his lung carcinoma diagnosis. He states he has not required further follow-up. 7. History of thromboembolic events He does have a history of thromboembolic events. He is at an increased risk based upon his history of lung carcinoma. He is going to undergo further e valuation for the possibility of recurrent thromboembolic events leading to his symptoms and his elevated d-dimer studies. As his creatinine level is increased this is going to be done with a VQ scan. In the interim he is on IV heparin therapy. 8. Renal insufficiency He does have renal insufficiency. This has to be taken into consideration with adjustment of medications as well as other diagnostic studies utilizing IV contrast which could lead to IV contrast related nephropathy. Comment: The patient's case was discussed at length with the patient. This note was generated using a voice recognition system and there may be incorrect words, spelling or punctuation that were not noted when reviewing the office note prior to saving.
[2020-01-19] MEDS: Heparin Injection (Vial) 5,000 UNIT/ML VIAL IV (10:21)
[2020-01-19] MEDS: Aspirin 81 MG TAB.CHEW PO (10:21)
[2020-01-19] MEDS: Pantoprazole Sodium 40 MG Tablet PO (10:21)
[2020-01-19] MEDS: 0.9% Saline Lock 10 ML Syringe IV (10:22)
[2020-01-19 10:23] VITALS: BP 124/72; PULSE 68; RESP 14; TEMP 36.6; O2SAT 94
[2020-01-19] MEDS: HYDROcodone Bitartrate/Apap 5/325 Tablet PO (12:40)
--- NOTE | 2020-01-19 13:44 | DCINST_ITS ---
- Discharge Diagnoses Current Active Problems: Current Active and Chronic Problems Chest pain (Acute) Mobitz (type) I (Wenckebach's) atrioventricular block (Acute) GERD (gastroesophageal reflux disease) (Chronic) CAD (coronary artery disease) (Chronic) Atrioventricular conduction disorder (Acute) PAF (paroxysmal atrial fibrillation) (Acute) HLD (hyperlipidemia) (Chronic) Renal insufficiency (Chronic) You will use the following diet at home:: Cardiac Your food should be the consistency of: Regular Your liquids should be the consistency of: Regular/Thin Discharge Activity: Return to Normal Activity Allergies/Adverse Reactions: Allergies No Known Allergies Allergy (Verified 03/27/16 13:53) Medications to take at Discharge Aspirin [Aspirin, Baby] 81 mg PO DAILY@0800 01/01/16 Esomeprazole Mag Trihydrate [Nexium] 40 mg PO DAILY 01/01/16 Meloxicam [Mobic] 15 mg PO DAILY 03/27/16 Simvastatin 80 mg PO QHS 01/18/20 Primary Care Physician: Jarred Vicente MD [Primary Care Provider] - Please follow up with your Primary Care Physician in: 1-2 weeks Test Results: Test results from this visit will be discussed in further detail at your follow- up appointment, if applicable. Please Follow Up With: Hernandez West MD When: as directed Proposed Discharge Date: 01/19/20
--- NOTE | 2020-01-19 13:46 | PCM.DC.SUM ---
<Isiah Dunham - Last Filed: 01/19/20 13:46> Discharge Date and Diagnosis Date of Admission: 01/18/20 Date of Discharge: 01/19/20 - Primary Discharge Diagnosis Active and Suspected Problems Chest pain (Acute), elevated D dimer, PE ruled out Mobitz (type) I (Wenckebach's) atrioventricular block (Acute) PAF (paroxysmal atrial fibrillation) (Acute) CKD III GERD CAD Hx lung cancer Hx VTE Hx AAA with repair - Secondary Discharge Diagnosis Chronic Problems GERD (gastroesophageal reflux disease) (Chronic) CAD (coronary artery disease) (Chronic) HLD (hyperlipidemia) (Chronic) Renal insufficiency (Chronic) History of malignant neoplasm of bronchus and lung (Chronic) History of venous thrombosis and embolism (Chronic) History of tobacco use (Chronic) History of esophageal reflux (Chronic) History of emphysema (Chronic) History of colitis (Chronic) Aortocoronary bypass status (Chronic) AAA (abdominal aortic aneurysm) (Chronic) Hospital Course and Treatment Imaging Results: RAD/Chest 1 View (Portable) IMPRESSION: No acute pathology or change from the prior chest of 01/01/2016 NM/Lung Scan Vent/Perf IMPRESSION: Low probability for pulmonary embolism with matching defects in the lung apices bilaterally due to combination of COPD and a previous right apical pulmonary partial pneumonectomy Venous Duplex Interpretation Summary No evidence for acute deep venous thrombosis bilateral lower extremities with patent and compressible bilateral great saphenous veins. Cons[facility]: None Procedures: None Summary of Care Provided: Hospital Course: The patient is a 79 year old M with past medical history of of CAD, paroxysmal atrial fibrillation, AAA with prior repair, lung cancer with prior lobectomy, who presented to the emergency room with complaints of chest pain. He was found to have negative chest x-ray, elevated d-dimer, negative troponin and EKG demonstrating second-degree AV block, type I. Patient was on a beta-haydee at home. This was held. He was admitted to PCU on telemetry. Cardiology was consulted. Venous US and Lung VQ scan were obtained which did not show clots. Cardiology was considering referral to [facility] for pacemaker, however the patient was adament that he was not interested in having a pacemaker, and that with the negative VQ results he wanted to go home. Trop was negative x 3, and he had no further chest pain. He was discharged home in stable condition, and should remain off metoprolol. He will need follow up with his PCP in 1-2 weeks and with cardiology as directed. This patient was seen by Isiah Dunham PA-C under the supervision of Dr. Chou.[] - Physical Exam Vitals/I&O's: Vital Signs Temp Pulse Resp BP Pulse Ox 97.9 F 68 14 124/72 H 94 01/19/20 10:23 01/19/20 10:23 01/19/20 10:23 01/19/20 10:23 01/19/20 10:23 Oxygen Delivery Method Room Air Weight: 151 lb 14.376 oz Body Mass Index (BMI) 20.6 Intake and Output for Last 24 Hours 01/17/20 01/18/20 01/19/20 23:59 23:59 23:59 Intake Total 1001.43 / 1001.43 562.16 / 562.16 Output Total 50 / 50 120 / 120 Balance 951.43 / 951.43 442.16 / 442.16 General: Alert, Oriented x3, Cooperative HEENT: Atraumatic, PERRLA, EOMI, Normocephalic Neck: Supple, No JVD, Negative Carotid Bruits Lungs: Clear to auscultation, Normal air movement Cardiovascular: Regular rate, No murmurs Abdomen: Bowel Sounds Present, Soft, Non Tender Extremities: No edema, Capillary Refill Less than 3 Seconds Skin: No rashes, No breakdown Musculoskeletal: No Tenderness to Palpation of Joints or Extremities Neurological: Cranial nerves II-XII grossly intact Psych/Mental Status: Normal Affect, Appropriate, Alert and oriented to time, place, person, mood and affect Laboratory Results 01/18/20 13:00: Magnesium 1.8 01/18/20 16:03: Troponin I < 0.015 01/18/20 20:09: APTT 207.4 H* 01/18/20 20:09: Troponin I < 0.015 01/19/20 02:58: WBC 9.7, RBC 3.39 L, Hgb 10.6 L, Hct 32.5 L, MCV 95.9 H, MCH 31.3, MCHC 32.6, RDW Std Deviation 47.5 H, RDW Coeff of Chandana 13.3, Plt Count 185, MPV 11.8, Immature Gran % (Auto) 0.800, Neut % (Auto) 64.9, Lymph % (Auto) 20.1, Fannin % (Auto) 9.2, Eos % (Auto) 4.7, Baso % (Auto) 0.3, Absolute Neuts (auto) 6.3, Absolute Lymphs (auto) 1.94, Nucleated RBC % 0 01/19/20 02:58: Sodium 141, Potassium 4.2, Chloride 110 H, Carbon Dioxide 25.0, Anion Gap 6, BUN 45 H, Creatinine 2.01 H, Estim Creat Clear Calc 28.09, Est GFR (MDRD) Af Amer 41 L, Est GFR (MDRD) Non-Af 34 L, BUN/Creatinine Ratio 22.4 H, Glucose 98, Calcium 8.1 L 01/19/20 02:58: APTT 105.0 H* 01/19/20 09:25: APTT 48.5 H Current Medications Acetaminophen (Tylenol) 650 mg PO Q6H PRN PRN PRN Reason: Pain Score 1-10/Temp > 100.7 F Hydrocodone Bitart/Acetaminophen ([place] 5mg-325mg) 1 tablet PO Q4H PRN PRN PRN Reason: Pain Score 1-10/10 Last Admin: 01/19/20 12:40 Dose: 1 tablet Documented by: Al Hydroxide/Mg Hydroxide (Mylanta Ii) 30 ml PO Q6H PRN PRN PRN Reason: Gastric Burning Albuterol Sulfate (Ventolin Aerosols) 2.5 mg INHALATION Q2H PRN PRN PRN Reason: SOB/Wheezing Aspirin (Aspirin, Baby) 81 mg PO DAILY@0800 [facility] Last Admin: 01/19/20 10:21 Dose: 81 mg Documented by: Atorvastatin Calcium (Lipitor) 40 mg PO QHS [facility] Last Admin: 01/18/20 21:58 Dose: 40 mg Documented by: Glucagon () 1 mg IM .X1 PRN PRN Reason: Hypoglycemia Guaifenesin (Robitussin) 20 ml PO Q4H PRN PRN PRN Reason: COUGH Last Admin: 01/18/20 16:01 Dose: 20 ml Documented by: Heparin Sodium (Porcine) (Heparin Na) 0 unit IV UD PRN; Protocol Last Admin: 01/19/20 10:21 Dose: 1,000 unit Documented by: Heparin Sodium/Dextrose () 25,000 units in 250 mls @ 11 mls/hr IV .[id number] [facility]; Protocol Last Infusion: 01/19/20 10:28 Dose: 600 units/hr, 6 mls/hr Documented by: Dextrose (Dextrose 10%-Water) 250 mls @ 999 mls/hr IV .Q16M PRN; Protocol PRN Reason: HYPOGLYCEMIA Magnesium Hydroxide (Milk Of Magnesia) 30 ml PO DAILY PRN PRN PRN Reason: Constipation Melatonin (Melatonin) 3 mg PO QHS PRN PRN PRN Reason: INSOMNIA Last Admin: 01/19/20 02:19 Dose: 3 mg Documented by: Morphine Sulfate () 2 mg IV Q3H PRN PRN PRN Reason: Pain Score 6-10/10 Nitroglycerin (Nitrostat) 0.4 mg SUBLINGUAL Q5M PRN PRN Reason: CARDIAC/CHEST PAIN Ondansetron HCl (Zofran) 4 mg IV Q8H PRN PRN PRN Reason: NAUSEA/VOMITING Pantoprazole Sodium (Protonix) 40 mg PO DAILY [facility] Last Admin: 01/19/20 10:21 Dose: 40 mg Documented by: Prochlorperazine Edisylate (Compazine Iv) 5 mg IV Q4H PRN PRN PRN Reason: Breakthrough Nausea/Vomiting Psyllium Hydrophilic Mucilloid (Metamucil) 1 packet PO DAILY PRN PRN PRN Reason: Constipation Senna/Docusate Sodium (Senokot-S, Karina-Colace) 2 tablet PO BID PRN PRN PRN Reason: Constipation Sodium Chloride () 10 - 40 ml IV UD PRN PRN Reason: SALINE FLUSH Last Admin: 01/19/20 10:22 Dose: 10 ml Documented by: Throat Lozenges (Cepacol Sore Throat Lozenge) 1 lozenge MUCOUS MEM Q2H PRN PRN PRN Reason: SORE THROAT Last Admin: 01/18/20 16:01 Dose: 1 lozenge Documented by: Discharge Diet: Low fat/ Low Cholesterol, 2000 mg Sodium Diet Discharge Activity: Return to Normal Activity Home Medications: Medications to take at Discharge Aspirin [Aspirin, Baby] 81 mg PO DAILY@0800 01/01/16 Esomeprazole Mag Trihydrate [Nexium] 40 mg PO DAILY 01/01/16 Meloxicam [Mobic] 15 mg PO DAILY 03/27/16 Simvastatin 80 mg PO QHS 01/18/20 Primary Care Physician: Jarred Vicente MD [Primary Care Provider] - Please follow up with your Primary Care Physician in: 1-2 weeks Please Follow Up With: Hernandez West MD When: as directed Disposition: Home Minutes spent on discharge:: 35 Patient Condition:: Stable Medical Necessity - Tobacco Use Smoking Status: Former smoker - Patient quit cigarette tobacco usage and 1993 with prior to this approximately 1 pack/day since he was in his early teenage years. Tobacco Use: Non-smoker Meaningful Use Info Meaningful Use Diagnoses (Choose all that apply): None applicable <Haroon Chou - Last Filed: 01/19/20 14:38> Discharge Date and Diagnosis - Secondary Discharge Diagnosis Chronic Problems GERD (gastroesophageal reflux disease) (Chronic) CAD (coronary artery disease) (Chronic) HLD (hyperlipidemia) (Chronic) Renal insufficiency (Chronic) History of malignant neoplasm of bronchus and lung (Chronic) History of venous thrombosis and embolism (Chronic) History of tobacco use (Chronic) History of esophageal reflux (Chronic) History of emphysema (Chronic) History of colitis (Chronic) Aortocoronary bypass status (Chronic) AAA (abdominal aortic aneurysm) (Chronic) Hospital Course and Treatment Summary of Care Provided: This patient was seen in conjunction with Isiah Dunham PA-C . I have independently interviewed and examined the patient and reviewed pertinent historical, laboratory, and other data. Please refer to Isiah Dunham PA-C note for details of this patient's presentation, findings, and recommendations. I have reviewed Isiah Dunham PA-C note and concur with documented findings. In brief, patient 79-year-old gentleman with multiple cardiac history including CAD paroxysmal A. fib AAA with previous repair lung cancer with prior lobectomy who presented to the emergency department with chest pain. Admitted to monitored bed subsequent monitoring demonstrated second-degree AV block type I. Consult was placed to cardiology. Patient was seen in consultation by Dr. West his note and recommendations reviewed. Dr. West's recommendation was for possible consideration for pacemaker placement patient was however not interested in any of that. He insisted to be discharged. Hospital course: As documented above - Physical Exam Vitals/I&O's: Vital Signs Temp Pulse Resp BP Pulse Ox 97.9 F 68 14 124/72 H 94 01/19/20 10:23 01/19/20 10:23 01/19/20 10:23 01/19/20 10:23 01/19/20 10:23 Oxygen Delivery Method Room Air Weight: 68.9 kg Body Mass Index (BMI) 20.6 Intake and Output for Last 24 Hours 01/17/20 01/18/20 01/19/20 23:59 23:59 23:59 Intake Total 1001.43 / 1001.43 562.16 / 562.16 Output Total 50 / 50 120 / 120 Balance 951.43 / 951.43 442.16 / 442.16 Laboratory Results 01/18/20 13:00: Magnesium 1.8 01/18/20 16:03: Troponin I < 0.015 01/18/20 20:09: APTT 207.4 H* 01/18/20 20:09: Troponin I < 0.015 01/19/20 02:58: WBC 9.7, RBC 3.39 L, Hgb 10.6 L, Hct 32.5 L, MCV 95.9 H, MCH 31.3, MCHC 32.6, RDW Std Deviation 47.5 H, RDW Coeff of Chandana 13.3, Plt Count 185, MPV 11.8, Immature Gran % (Auto) 0.800, Neut % (Auto) 64.9, Lymph % (Auto) 20.1, Fannin % (Auto) 9.2, Eos % (Auto) 4.7, Baso % (Auto) 0.3, Absolute Neuts (auto) 6.3, Absolute Lymphs (auto) 1.94, Nucleated RBC % 0 01/19/20 02:58: Sodium 141, Potassium 4.2, Chloride 110 H, Carbon Dioxide 25.0, Anion Gap 6, BUN 45 H, Creatinine 2.01 H, Estim Creat Clear Calc 28.09, Est GFR (MDRD) Af Amer 41 L, Est GFR (MDRD) Non-Af 34 L, BUN/Creatinine Ratio 22.4 H, Glucose 98, Calcium 8.1 L 01/19/20 02:58: APTT 105.0 H* 02/26/20 09:25: APTT 48.5 H Code Visit OBSV E&M: [id number] Observation care discharge
--- NOTE | 2020-01-19 14:13 | PHA.DC.MR ---
Pharmacy Service has performed discharge medication reconciliation for this patient. The patient's discharge medication list was reviewed for discrepancies and discrepancies were resolved. Home Medications Aspirin [Aspirin, Baby] 81 mg PO DAILY@0800 01/01/16 Esomeprazole Mag Trihydrate [Nexium] 40 mg PO DAILY 01/01/16 Meloxicam [Mobic] 15 mg PO DAILY 03/27/16 Simvastatin 80 mg PO QHS 01/18/20
== END 2020-01-19 14:20 | disposition home or self-care (01) | DRG 313 ==
LOC: ED 13:13 → PCU 14:01
PROVIDERS: Admitting Provider Family Medicine; Emergency Provider Emergency Medicine; PCP Family Medicine; Visit Provider Internal Medicine
DX: R07.9 Chest pain, unspecified (principal); I44.1 Atrioventricular block, second degree; I48.0 Paroxysmal atrial fibrillation; I25.10 Atherosclerotic heart disease of native coronary artery without angina pectoris; E78.5 Hyperlipidemia, unspecified; N18.3 Chronic kidney disease, stage 3 (moderate); I12.9 Hypertensive chronic kidney disease with stage 1 through stage 4 chronic kidney disease, or unspecified chronic kidney disease; K21.9 Gastro-esophageal reflux disease without esophagitis; Z86.79 Personal history of other diseases of the circulatory system; Z95.1 Presence of aortocoronary bypass graft; Z85.118 Personal history of other malignant neoplasm of bronchus and lung; Z90.2 Acquired absence of lung [part of]; Z87.891 Personal history of nicotine dependence; Z86.718 Personal history of other venous thrombosis and embolism; J43.9 Emphysema, unspecified; Z92.21 Personal history of antineoplastic chemotherapy; Z66 Do not resuscitate
CPT/HCPCS: 36415; 71045; 78582; 80048; 80053; 83690; 83735; 84484; 85025; 85379; 85730; 93005; 93306; 93970; 99251; 99285; A9540; A9567; J7030; A4216; G0463

== ENCOUNTER → 2020-01-31 | Outpatient (CLI) | payer MEDICARE, OTHER, SELFPAY ==
[2020-01-18 15:41] VITALS: BMI 20.6
[2020-01-24 10:54] VITALS: BMI 20.2
== END | disposition home or self-care (01) ==
LOC: PSN 08:57
PROVIDERS: PCP Family Medicine; Referring Provider Nurse Practitioner Family; Visit Provider Nurse Practitioner Family
DX: I48.0 Paroxysmal atrial fibrillation (principal); I45.89 Other specified conduction disorders
CPT/HCPCS: 93225; 93226

== ENCOUNTER 2021-10-15 08:13 | Emergency (ER) | payer MEDICARE, SELFPAY ==
[2021-10-15 08:14] VITALS: BP 165/106; PULSE 74; RESP 20; TEMP 35.5; O2SAT 97; BMI 19.8
[2021-10-15 08:17] VITALS: BP 165/106; PULSE 74; RESP 20; TEMP 35.5; O2SAT 97
--- NOTE | 2021-10-15 08:21 | EX.ED.DYSGE1 ---
HPI History of Present Illness Chief Complaint: Nausea/Vomiting/Diarrhea Informant: patient and EMS Narrative Narrative: 81-year-old male states that he felt fine when he woke up this morning. He went and had a can of Pepsi. Went back and sat in his chair where he was going to sleep and began to vomit. He states he is also experienced diarrhea this morning. States he feels extremely nauseous. He denies any bad food exposure or recent antibiotics. Denies any fever. EMS administered Zofran on the way to the hospital. He notes a generalized abdominal soreness PFSH [facility] Medical History (Updated 10/15/21 @ 10:[address] Marvin Martinez DO) AAA (abdominal aortic aneurysm) Abdominal aortic aneurysm without rupture Atherosclerotic heart disease of [place] coronary artery without angina pectoris Atrioventricular conduction disorder CAD (coronary artery disease) Chest pain GERD (gastroesophageal reflux disease) History of colitis History of emphysema History of esophageal reflux History of malignant neoplasm of bronchus and lung History of tobacco use History of venous thrombosis and embolism HLD (hyperlipidemia) Mobitz (type) I (Wenckebach's) atrioventricular block PAF (paroxysmal atrial fibrillation) Renal insufficiency Home Medications ondansetron 4 mg PO Q6H PRN PRN #15 tab 10/15/21 [Rx Last Taken Unknown] Allergy/AdvReac Type Severity Reaction Status Date / Time No Known Allergies Allergy Verified 10/15/21 08:18 Surgical History History of abdominal aortic aneurysm repair History of coronary artery bypass surgery (~06/03/11) History of transurethral resection of prostate S/P partial lobectomy of lung Social History Smoking Status: Former smoker alcohol intake: current details: occasional substance use type: does not use ROS ROS ED Constitutional Constitutional ED: Denies chills, fever(s) or weight loss Eyes Eyes: Denies change in vision or diplopia ENT ENT ED: Denies ear pain, rhinorrhea or sore throat Cardiovascular Cardiovascular: Denies chest pain, orthopnea, palpitations or racing heartbeat Respiratory/Chest Respiratory/Chest: Denies cough, dyspnea or orthopnea Gastrointestinal Gastrointestinal: Reports abdominal pain, diarrhea, nausea and vomiting Genitourinary Genitourinary ED: Denies dysuria, hematuria or urinary frequency Musculoskeletal Musculoskeletal: Denies arthralgias or myalgias Integumentary Denies abscess or rash Neurologic Neurologic: Denies headache(s) or weakness Psychiatric Psychiatric: Denies anxiety, depression, suicidal ideation or suicidal thoughts Endocrine Endocrinology: Denies polydipsia, polyphagia or polyuria Allergic/Immunologic Allergic/Immunologic ED: Denies mouth swelling, tongue swelling or urticaria EXAM Physical Exam Const Vital Signs: 10/15/21 08:14 10/15/21 08:17 10/15/21 10:27 Temperature 95.9 F L 95.9 F L Temperature Source Temporal Temporal Pulse Rate 74 74 72 Respiratory Rate 20 H 20 H 30 H Blood Pressure 165/106 H 165/106 H 169/82 H Blood Pressure Mean 125 125 111 Pulse Ox 97 97 99 Oxygen Delivery Method Room Air Room Air Room Air Positive well nourished and well developed General Appearance ED: well developed HEENT Reports normocephalic, head/scalp atraumatic, TM's clear and moist mucous membranes Negative for trauma Tympanic Membrane ED: Yes TM's clear Eyes PERRL and EOMs intact bilaterally Neck no lymphadenopathy, supple and no JVD Resp normal respiratory effort and clear to auscultation bilaterally Cardio regular rate, regular rhythm and no murmurs GI normal to inspection, nondistended, normoactive bowel sounds and non-tender Palpation: soft Back/Spine no CVA tenderness and normal ROM Extremity normal to inspection General Extremety ED: Negative for edema General Extremity: Negative for edema Neuro oriented x3 and CN's II-XII intact bilaterally Sensorium / Orientation: alert Motor Exam: strength 5/5 throughout Psych mental status grossly normal Mood & Affect: Negative for depressed or tearful Skin no rashes or lesions noted and no wounds MDM MDM MDM Narrative Medical decision making narrative: White count returns at 8.8. CMP with a creatinine 2.13. Lipase slightly elevated at 530. Patient received Zofran and IV fluids. He continues to complain of abdominal pain. He received a dose of Bentyl and a CT was obtained. This was negative for acute. Repeat examination finds the patient requesting from multiple nurses and myself to be discharged. I will write him for a prescription for Zofran. Imodium as needed for diarrhea. Return if worsening or concerns. Patient has passed p.o. challenge. Lab Data Attestation: I reviewed the patient's lab results. Labs: Laboratory Results - last 24 hr 10/15/21 10/15/21 07:57 07:57 WBC 8.8 RBC 4.78 Hgb 14.9 Hct 45.0 MCV 94.1 H MCH 31.2 MCHC 33.1 RDW Std Deviation 48.1 H RDW Coeff of Chandana 13.7 Plt Count 190 MPV 10.8 Immature Gran % (Auto) 0.800 Neut % (Auto) 72.5 H Lymph % (Auto) 15.4 L [place] % (Auto) 8.0 Eos % (Auto) 2.8 Baso % (Auto) 0.5 Absolute Neuts (auto) 6.4 Absolute Lymphs (auto) 1.35 Nucleated RBC % 0 Sodium 141 Potassium 4.0 Chloride 111 H Carbon Dioxide 23.0 Anion Gap 7 BUN 24 H Creatinine 2.13 H Estim Creat Clear Calc 25.98 Est GFR (MDRD) Af Amer 38 L Est GFR (MDRD) Non-Af 32 L BUN/Creatinine Ratio 11.3 Glucose 137 H Calcium 9.0 Total Bilirubin 1.10 H AST 9 L ALT 10 L Alkaline Phosphatase 104 Total Protein 7.4 Albumin 3.4 Globulin 4.0 Albumin/Globulin Ratio 0.8 L Lipase 530 H Radiography Diagnostic Testing: Clinical Impression(s) from Imaging Studies Abdomen/Pelvis CT 10/15/21 08:55 IMPRESSION: No CT evidence for acute inflammatory process involving the abdomen or pelvis. However, there are innumerable diverticuli involving the descending to sigmoid colon. There is aortobiiliac stent in expected configuration with stable appearance of [place] aortic aneurysm. There is again seen bilateral renal cysts. Nonobstructing stone right kidney. Marked degenerative disc changes lower lumbar spine. Electronically Signed: Amauri Sheehan MD at 10:02 EST Tel , Service support , Discharge Plan Triage Chief Complaint: Nausea/Vomiting/Diarrhea ED Provider: Marvin Martinez Dx/Rx/DC Orders Clinical Impression: Vomiting and diarrhea Instructions: ED Vomiting and Diarrhea ... Prescriptions: New ondansetron [ondansetron] 4 MG tablet 4 mg PO Q6H PRN PRN (Reason: Nausea) Qty: 15 RF: 0 Primary Care Provider: Jarred Vicente Referrals: Jarred Vicente MD [Primary Care Provider] - As Needed Disposition Disposition: Home, Self Care
[2021-10-15] MEDS: Ondansetron 4 MG/2 ML Vial IV (08:26)
[2021-10-15] MEDS: 0.9% Normal Saline 1,000 ML 1000 ML IV (08:26)
[2021-10-15 08:31] LABS: Absolute Lymphocyte Count 1.35 X10^3/uL (0.83-4.51); Absolute Neutrophil Count 6.4 X10^3/uL (2.0-7.7); Basophil# 0.04 X10^3/uL; Basophil% 0.5 % (0-1); Eosinophil# 0.25 X10^3/uL; Eosinophils% 2.8 % (0-5); Hemoglobin 14.9 g/dL (13.0-16.5); Lymphocyte # 1.35 X10^3/ul (0.83-4.51); Lymphocyte % 15.4 % (19-41); Mean Corp Hgb Conc 33.1 g/dL (32-36); Mean Corpuscular Hgb 31.2 pg (27.0-32.0); Mean Corpuscular Volume 94.1 fL (80-94); Mean Platelet Vol. 10.8 fl (6.2-12.0); NRBC Flagged by Analyzer 0 % (0-5); Neutrophil # 6.37 X10^3/uL (2.7-7.7); Neutrophil % 72.5 % (47-70); Platelet Count 190 K/mm3 (150-450); RBC Distribution Width CV 13.7 % (11.6-14.6); RBC Distribution Width SD 48.1 fl (35.1-43.9); Red Blood Count 4.78 M/mm3 (4.6-6.2); White Blood Count 8.8 K/mm3 (4.4-11.0)
[2021-10-15 08:41] LABS: ALB/GLOB Ratio 0.8 RATIO (0.9-2.4); AST(SGOT) 9 U/L (15-37); Alanine Aminotransfer ALT/SGPT 10 U/L (16-61); Albumin, Serum 3.4 g/dL (3.2-5.0); Alkaline Phosphatase 104 U/L (45-117); Anion Gap 7 (5-15); BUN 24 mg/dL (7-18); BUN/Creat Ratio 11.3 RATIO (10-20); Chloride 111 mmol/L (98-107); Creatinine, Serum 2.13 mg/dL (0.70-1.30); EST Glomerular Filtration Rate 32 mL/min (>60); Est Glom Filt Rate - Afr Amer 38 mL/min (>60); Estimated Creatinine Clearance 25.98 ml/min; Glucose 137 mg/dL (74-106); Lipase 530 U/L (73-393); Protein, Total 7.4 g/dL (6.4-8.2); Sodium Level 141 mmol/L (136-145)
--- NOTE | 2021-10-15 08:55 | CT_ITS ---
INDICATION: abdominal pain EXAMINATION: CT ABDOMEN AND PELVIS WITH CONTRAST - CT Abdomen And Pelvis W/ Contrast Injection TECHNIQUE: Helically acquired images were obtained of the abdomen and pelvis following IV contrast. A radiation dose optimization technique was used for this scan. Oral contrast: None. COMPARISON: 03/07/2016 FINDINGS: LOWER CHEST: Lung bases are clear. LIVER: Homogeneous. No focal mass. GALLBLADDER AND BILIARY TREE: No calcified gallstones. No gallbladder distension or wall edema. No intra- or extrahepatic biliary ductal dilation. PANCREAS: No focal cystic or solid mass. SPLEEN: Normal size without focal cystic or solid mass. ADRENAL GLANDS: No nodules. KIDNEYS AND URETERS: There are several low-attenuation lesions each kidney felt to represent cysts. There is 2 mm nonobstructing stone right kidney unchanged. No hydronephrosis. PERITONEUM: No ascites or free air. No other fluid collection. BOWEL: No evidence of acute appendicitis. No stomach or bowel distension. There are innumerable diverticuli involving the descending to sigmoid colon. LYMPH NODES: No enlarged mesenteric or retroperitoneal lymph nodes. VESSELS: There is aortobiiliac stent graft in place. Configuration of the stent graft is unchanged. Diameter of the [place] aorta is similar measuring up to 4.6 cm previously 4.4 cm. URINARY BLADDER: Unremarkable. REPRODUCTIVE ORGANS: Transverse diameter of the prostate is 4.7 cm unchanged. ABDOMINAL WALL: No discrete abdominal or pelvic wall hernia. BONES: There is marked disc space narrowing with vacuum phenomenon and endplate spurring L4-5 and L5-S1. There is mild posterior listhesis of L5 relative to S1 with associated disc bulge. Marked degenerative changes at the facets noted. CT/Abdomen/Pelvis W IV Cont ONLY IMPRESSION: No CT evidence for acute inflammatory process involving the abdomen or pelvis. However, there are innumerable diverticuli involving the descending to sigmoid colon. There is aortobiiliac stent in expected configuration with stable appearance of [place] aortic aneurysm. There is again seen bilateral renal cysts. Nonobstructing stone right kidney. Marked degenerative disc changes lower lumbar spine. Electronically Signed: Amauri Sheehan MD at 10:02 EST Tel , Service support ,
[2021-10-15] MEDS: Dicyclomine 20 MG/2 ML Vial IM (09:00)
--- NOTE | 2021-10-15 09:06 | ED.RN ---
pt constantly production weigher light, states that he does not want to be in the room alone. attempted to explain that we are unable to continuously remain in the room. pt does understand why we can not be in there at all times.
[2021-10-15 10:27] VITALS: BP 169/82; PULSE 72; RESP 30; O2SAT 99
== END 2021-10-15 11:10 | disposition home or self-care (01) ==
PROVIDERS: Emergency Provider Emergency Medicine; PCP Family Medicine
DX: R11.2 Nausea with vomiting, unspecified (principal); R19.7 Diarrhea, unspecified; I25.10 Atherosclerotic heart disease of native coronary artery without angina pectoris; K21.9 Gastro-esophageal reflux disease without esophagitis; E78.5 Hyperlipidemia, unspecified; Z87.891 Personal history of nicotine dependence
CPT/HCPCS: 74177; 80053; 83690; 85025; 96361; 96372; 96374; 99285; Q9967; A4216; J2405

== ENCOUNTER 2022-04-08 20:36 | Inpatient (IN) | payer MEDICARE, SELFPAY ==
[2022-04-08 20:37] VITALS: BP 146/129; PULSE 47; RESP 14; TEMP 36.3; O2SAT 99; BMI 19.8
[2022-04-08 20:59] VITALS: BP 92/63; PULSE 63; RESP 18; O2SAT 93
--- NOTE | 2022-04-08 21:02 | EKG12_ITS ---
Test Reason : WEAKNESS Blood Pressure : / mmHG Vent. Rate : 056 BPM Atrial Rate : 056 BPM P-R Int : 230 ms QRS Dur : 138 ms QT Int : 616 ms P-R-T Axes : 085 -65 041 degrees QTc Int : 594 ms Sinus bradycardia with 1st degree A-V block with Premature atrial complexes in a pattern of bigeminy Left axis deviation Right bundle branch block Inferior infarct , age undetermined Abnormal ECG Confirmed by VICENTE MELO, ALLY ([id number]), business editor RAMOS KNAPP ([id number]) on 04/10/2022 10:35:33 AM Referred By: Confirmed By:ALLY ZHANG MD
--- NOTE | 2022-04-08 21:06 | EDS_ITS ---
HPI History of Present Illness Chief Complaint: Weakness Informant: patient Narrative Narrative: 81-year-old male presenting to the emergency department with weakness. Patient states that he lives alone with his dog. He typically sleeps in a chair. Last night he time he tried to get up he would fall down. He believes his nephew called the ambulance tonight. He states he has not hurt himself in any of the falls. He notes some mild chest pain and shortness of breath. He has a history of lung cancer PE A. fib and has had bypass surgery. He denies any fevers. No change in bowel habits or urinary symptoms. He states has been eating okay. Family states that they have concerns about his ability to live on his own. They note that they are seeing signs of dementia. [facility] Medical History (Updated 04/09/22 @ 08:[address] 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 CAD (coronary artery disease) Chest pain Dementia GERD (gastroesophageal reflux disease) History of colitis History of emphysema History of esophageal reflux History of malignant neoplasm of bronchus and lung History of tobacco use History of venous thrombosis and embolism HLD (hyperlipidemia) Mobitz (type) I (Wenckebach's) atrioventricular block PAF (paroxysmal atrial fibrillation) Renal insufficiency Sepsis Home Medications ondansetron 4 mg PO Q6H PRN PRN #15 tab 10/15/21 [Rx Last Taken Unknown] Allergy/AdvReac Type Severity Reaction Status Date / Time No Known Allergies Allergy Verified 04/08/22 20:37 Surgical History History of abdominal aortic aneurysm repair History of coronary artery bypass surgery (~06/03/11) History of transurethral resection of prostate S/P partial lobectomy of lung Social History Smoking Status: Former smoker alcohol intake: current details: occasional substance use type: does not use ROS ROS ED ROS Narrative Generalized weakness Constitutional Constitutional ED: Denies chills, fever(s) or weight loss Eyes Eyes: Denies change in vision or diplopia ENT ENT ED: Denies ear pain, rhinorrhea or sore throat Cardiovascular Cardiovascular: Denies chest pain, orthopnea, palpitations or racing heartbeat Respiratory/Chest Respiratory/Chest: Denies cough, dyspnea or orthopnea Gastrointestinal Gastrointestinal: Denies abdominal pain, diarrhea, nausea or vomiting Genitourinary Genitourinary ED: Denies dysuria, hematuria or urinary frequency Musculoskeletal Musculoskeletal: Denies arthralgias or myalgias Integumentary Denies abscess or rash Neurologic Neurologic: Denies headache(s) or weakness Psychiatric Psychiatric: Denies anxiety, depression, suicidal ideation or suicidal thoughts Endocrine Endocrinology: Denies polydipsia, polyphagia or polyuria Allergic/Immunologic Allergic/Immunologic ED: Denies mouth swelling, tongue swelling or urticaria EXAM Physical Exam Const Vital Signs: 04/08/22 22:14 04/08/22 23:24 Pulse Rate 58 L 68 Pulse Rate [Lying] 55 L Pulse Rate [Sitting (for 1 minute prior to obtaining)] 72 Respiratory Rate 18 22 H Blood Pressure 105/67 98/85 H Blood Pressure [Lying] 110/67 Blood Pressure [Sitting (for 1 minute prior to obtaining)] 105/67 Blood Pressure Mean 79 89 Blood Pressure Mean [Lying] 81 Blood Pressure Mean [Sitting (for 1 minute prior to obtaining)] 79 Pulse Ox 97 92 Oxygen Delivery Method Room Air Room Air Positive well nourished and well developed General Appearance ED: well developed HEENT Reports normocephalic, head/scalp atraumatic, TM's clear and moist mucous membranes Negative for trauma Tympanic Membrane ED: Yes TM's clear Eyes PERRL and EOMs intact bilaterally Neck no lymphadenopathy, supple and no JVD Resp normal respiratory effort and clear to auscultation bilaterally Cardio regular rate, regular rhythm and no murmurs GI normal to inspection, nondistended, normoactive bowel sounds and non-tender Palpation: soft Back/Spine no CVA tenderness and normal ROM Extremity normal to inspection General Extremety ED: Negative for edema General Extremity: Negative for edema Neuro oriented x3 and CN's II-XII intact bilaterally Sensorium / Orientation: alert Motor Exam: strength 5/5 throughout Psych mental status grossly normal Mood & Affect: Negative for depressed or tearful Skin no rashes or lesions noted and no wounds MDM MDM MDM Narrative Medical decision making narrative: Patient has a white count of 18.8. Hemoglobin 14.9. Creatinine is elevated off baseline at 3.05 with a BUN of 36. Troponin is elevated at 442. Lactic acid is 2.8 with a BNP of 54.6. My interpretation of the chest x-ray is no acute process. CT of the brain is normal. Patient received IV fluids. We after IV fluids we attempted to do orthostatics but were unable to get the patient even to stand at the bedside. Urinalysis is currently pending and I will asked the night physician to check the results and admit him. Family and patient were updated. Lab Data Attestation: I reviewed the patient's lab results. Labs: Laboratory Results - last 24 hr 04/08/22 04/08/22 04/08/22 21:20 21:20 21:20 PT 15.3 H INR 1.2 APTT 28.9 Sodium 142 Potassium 3.9 Chloride 109 H Carbon Dioxide 24.0 Anion Gap 9 BUN 36 H Creatinine 3.05 H Estim Creat Clear Calc 18.22 Est GFR (MDRD) Af Amer 25 L Est GFR (MDRD) Non-Af 21 L BUN/Creatinine Ratio 11.8 Glucose 128 H Lactic Acid 2.8 H* Calcium 8.8 Total Bilirubin 1.00 AST 18 ALT 19 Alkaline Phosphatase 117 Troponin I High Sens 442 H* B-Natriuretic Peptide Total Protein 7.4 Albumin 3.7 Globulin 3.7 Albumin/Globulin Ratio 1.0 Urine Color Urine Clarity Urine pH Ur Specific [place] Urine Protein Urine Glucose (UA) Urine Ketones Urine Occult Blood Urine Nitrite Urine Bilirubin Urine Urobilinogen Ur Leukocyte Esterase Urine RBC Urine WBC Ur Squamous Epith Cells Urine Bacteria Urine Mucus 04/08/22 04/08/22 04/08/22 21:20 22:20 23:49 PT INR APTT Sodium Potassium Chloride Carbon Dioxide Anion Gap BUN Creatinine Estim Creat Clear Calc Est GFR (MDRD) Af Amer Est GFR (MDRD) Non-Af BUN/Creatinine Ratio Glucose Lactic Acid Calcium Total Bilirubin AST ALT Alkaline Phosphatase Troponin I High Sens 1105 H* B-Natriuretic Peptide 54.6 Total Protein Albumin Globulin Albumin/Globulin Ratio Urine Color Yellow Urine Clarity Clear Urine pH 6.0 Ur Specific [place] 1.020 Urine Protein 30 H Urine Glucose (UA) Normal Urine Ketones Negative Urine Occult Blood 25 H Urine Nitrite Negative Urine Bilirubin Negative Urine Urobilinogen Normal Ur Leukocyte Esterase Negative Urine RBC 0 SEEN Urine WBC 0-5 SEEN Ur Squamous Epith Cells 0-5 SEEN Urine Bacteria 0 SEEN Urine Mucus 0 SEEN Radiography Diagnostic Testing: Clinical Impression(s) from Imaging Studies Brain CT 04/08/22 21:50 IMPRESSION: undefined Chest X-Ray 04/08/22 21:55 IMPRESSION: No acute cardiopulmonary disease. Electronically Signed: Shay Wood MD at 22:34 EDT , EKG Initial EKG: Attestation: I personally reviewed and interpreted this EKG as follows: Comments: Sinus bradycardia with a first-degree AV block and PACs in a pattern of bigeminy. Right bundle branch block noted. Ventricular rate of 56 bpm. Discharge Plan Dx/Rx/DC Orders Clinical Impression: Acute dehydration, Acute kidney injury, Elevated troponin Disposition Disposition: Acute Care [facility]
[2022-04-08 21:39] LABS: Absolute Lymphocyte Count 0.67 X10^3/uL (0.83-4.51); Absolute Neutrophil Count 16.5 X10^3/uL (2.0-7.7); Basophil# 0.03 X10^3/uL; Basophil% 0.2 % (0-1); Eosinophil# 0.01 X10^3/uL; Eosinophils% 0.1 % (0-5); Hematocrit 45.6 % (40-54); Hemoglobin 14.9 g/dL (13.0-16.5); Lymphocyte # 0.67 X10^3/ul (0.83-4.51); Lymphocyte % 3.6 % (19-41); Mean Corp Hgb Conc 32.7 g/dL (32-36); Mean Corpuscular Hgb 30.9 pg (27.0-32.0); Mean Corpuscular Volume 94.6 fL (80-94); Mean Platelet Vol. 10.8 fl (6.2-12.0); Monocyte# 1.37 X10^3/uL; Monocyte% 7.3 % (0-10); NRBC Flagged by Analyzer 0 % (0-5); Neutrophil # 16.54 X10^3/uL (2.7-7.7); Neutrophil % 87.8 % (47-70); Platelet Count 226 K/mm3 (150-450); RBC Distribution Width CV 13.8 % (11.6-14.6); RBC Distribution Width SD 48.1 fl (35.1-43.9); Red Blood Count 4.82 M/mm3 (4.6-6.2); White Blood Count 18.8 K/mm3 (4.4-11.0)
--- NOTE | 2022-04-08 21:50 | CT_ITS ---
STUDY: CT BRAIN WITHOUT CONTRAST REASON FOR EXAM: Male, 81 years old. ams RADIATION DOSAGE (If Supplied By Facility): CTDIvol = ( 44.99 ) mGy, DLP = ( 863.60 ) mGycm TECHNIQUE: Transaxial CT imaging of the brain was performed without administration of intravenous contrast material. Individualized dose optimization techniques were used for this CT. COMPARISON: No relevant priors. FINDINGS: BRAIN: Scattered foci of cortical hypoattenuation near the vertex and periventricular white matter, consistent with chronic lacunar infarcts. VENTRICLES: The ventricles and cortical sulci are mildly enlarged. Bilateral periventricular hypoattenuation, nonspecific however likely represents chronic microvascular ischemic changes. EXTRA-AXIAL SPACES: No hemorrhages, fluid collections, or masses. CALVARIUM/SKULL BASE: Normal. FACE/SINUSES: Moderate sinus mucosal thickening predominantly in the ethmoid sinuses. SOFT TISSUES: Normal. OTHER: None. CONCLUSION: 1. No intracranial hemorrhage or acute territorial infarction. 2. Multifocal bilateral chronic lacunar infarcts. 3. Senescent changes. 4. Sinus mucosal thickening, correlate for sinusitis. Electronically Signed: Shay Wood MD at 22:08 EDT , CT/Brain/Head without Contrast IMPRESSION: undefined
[2022-04-08 21:55] LABS: International Normalized Ratio 1.2; Partial Thromboplast Time 28.9 Seconds (24.1-36.2); Prothrombin Time (Protime)PT. 15.3 SECONDS (11.7-14.9)
--- NOTE | 2022-04-08 21:55 | RAD_ITS ---
INDICATION: cough EXAMINATION/TECHNIQUE: X-RAY - XR Chest 1 View COMPARISON: 01/18/2020 FINDINGS: LINES/DEVICES: None. LUNGS: Microsuture in the right suprahilar region, similar compared to the prior. No consolidation, edema or effusion. No pneumothorax. MEDIASTINUM AND CARDIOVASCULAR STRUCTURES: Surgical changes in the mediastinum, similar compared to the prior. BONES AND SOFT TISSUES: Surgical clips in the right neck, similar compared to the prior. No acute osseous abnormality. RAD/Chest 1 View (Portable) IMPRESSION: No acute cardiopulmonary disease. Electronically Signed: Shay Wood MD at 22:34 EDT ,
[2022-04-08 22:04] LABS: BNP,B-Type NATRIURETIC PEPTIDE 54.6 pg/mL (0-100)
[2022-04-08 22:09] LABS: AST(SGOT) 18 U/L (15-37); Alanine Aminotransfer ALT/SGPT 19 U/L (16-61); Albumin, Serum 3.7 g/dL (3.2-5.0); Alkaline Phosphatase 117 U/L (45-117); Anion Gap 9 (5-15); BUN 36 mg/dL (7-18); BUN/Creat Ratio 11.8 RATIO (10-20); Calcium,Total 8.8 mg/dL (8.5-10.1); Chloride 109 mmol/L (98-107); Creatinine, Serum 3.05 mg/dL (0.70-1.30); EST Glomerular Filtration Rate 21 mL/min (>60); Est Glom Filt Rate - Afr Amer 25 mL/min (>60); Estimated Creatinine Clearance 18.22 ml/min; Globulin 3.7 g/dL (2.2-4.2); Glucose 128 mg/dL (74-106); Lactic Acid 2.8 mmol/L (0.4-1.9); Potassium 3.9 mmol/L (3.5-5.1); Protein, Total 7.4 g/dL (6.4-8.2); Sodium Level 142 mmol/L (136-145); Troponin-I HS (w/2H Reflex) 442 pg/mL (3.0-78.0)
[2022-04-08 22:14] VITALS: BP 105/67; BP 110/67; PULSE 55; PULSE 58; PULSE 72; RESP 18; O2SAT 97
[2022-04-08 22:30] LABS: Bacteria 0 SEEN /hpf (None Seen); Mucous, Urine 0 SEEN /hpf (<or=2+); Red Blood Cells-Urine 0 SEEN /hpf (0-5)
[2022-04-08] MEDS: oxyCODONE 5 MG Tablet PO (23:07)
[2022-04-08 23:16] LABS: Color, Urine Yellow (Yellow); Glucose, Dipstick Normal (Normal); Ketone-Dipstick Negative (Negative); Leukocyte Esterase-Dipstick Negative /ul (Negative); Nitrite-Dipstick Negative (Negative); Occult Blood-Urine 25 /ul (Negative); Protein-Dipstick 30 mg/dl (Negative); Urine Bilirubin Dipstick Negative (Negative); Urine Clarity Clear (Clear); Urine Urobilinogen Normal (Normal)
[2022-04-08 23:24] VITALS: BP 98/85; PULSE 68; RESP 22; O2SAT 92
[2022-04-08 23:33] LABS: Squamous Epithelial Cells - UA 0-5 SEEN /hpf (0-5); White Blood Cells 0-5 SEEN /hpf (0-5)
[2022-04-08 23:34] LABS: Reflex Troponin-HS? (from REC) Y
[2022-04-09] VITALS (16 sets, daily range): BP systolic 106–153; BP diastolic 72–117; PULSE 56–75; RESP 16–24; TEMP 36.4–36.6; O2SAT 86–100; BMI 19.1
--- NOTE | 2022-04-09 00:05 | HP.PCM_ITS ---
HPI - General General Date of Admission: 04/09/22 HPI Narrative BLAINE JAVIER, is a 81 M who presents emergency room due to frequent falls at home. The patient has reportedly been more confused as of late and the family has expressed concerns for dementia and that he may not be able to care for himself any longer at home. At this point the patient is a poor historian but denies having any chest pain or shortness of breath he does complain of some mild neck and back pain. CBC reveals a white blood cell count of 18,000 however chest x-ray is negative for infiltrate and urine is negative for bacterial infection and no other source for bacterial infection is apparent at this time. He has an elevated lactic acid. CT scan of the head is negative for acute changes. He will be admitted to the progressive care unit for sepsis from unknown source along with elevated troponin and possible NSTEMI. Patient will need case management to help with discharge planning and possible placement. [facility] Medical History (Updated 04/08/22 @ 22:[address] 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 CAD (coronary artery disease) Chest pain GERD (gastroesophageal reflux disease) History of colitis History of emphysema History of esophageal reflux History of malignant neoplasm of bronchus and lung History of tobacco use History of venous thrombosis and embolism HLD (hyperlipidemia) Mobitz (type) I (Wenckebach's) atrioventricular block PAF (paroxysmal atrial fibrillation) Renal insufficiency Home Medications ondansetron 4 mg PO Q6H PRN PRN #15 tab 10/15/21 [Rx Last Taken Unknown] Allergy/AdvReac Type Severity Reaction Status Date / Time No Known Allergies Allergy Verified 04/08/22 20:37 Surgical History History of abdominal aortic aneurysm repair History of coronary artery bypass surgery (~06/03/11) History of transurethral resection of prostate S/P partial lobectomy of lung Social History Smoking Status: Former smoker alcohol intake: current details: occasional substance use type: does not use ROS Constitutional Constitutional: Denies chills or fever(s) Eyes Eyes: Denies blurry vision ENT HEENT: Denies abnormal hearing Cardiovascular Cardiovascular: Denies chest pain Respiratory/Chest Respiratory/Chest: Denies cough Gastrointestinal Gastrointestinal: Denies abdominal pain Genitourinary Genitourinary: Denies dysuria Musculoskeletal Musculoskeletal: Reports back pain Integumentary Integumentary: Denies dry skin Neurologic Neurologic: Denies abnormal gait Psychiatric Psychiatric: Reports anxiety Vital Signs Vital Signs Vital Signs: 04/08/22 20:37 04/08/22 20:59 04/08/22 21:01 Temperature 97.3 F L Temperature Source Temporal Pulse Rate 47 L 63 Pulse Rate [Lying] Pulse Rate [Sitting (for 1 minute prior to obtaining)] Respiratory Rate 14 18 Respiratory Effort Normal Non-Labored Respiratory Pattern Normal Blood Pressure 146/129 H 92/63 Blood Pressure [Lying] Blood Pressure [Sitting (for 1 minute prior to obtaining)] Blood Pressure Mean 134 72 Blood Pressure Mean [Lying] Blood Pressure Mean [Sitting (for 1 minute prior to obtaining)] Pulse Ox 99 93 Oxygen Delivery Method Room Air Room Air 04/08/22 22:14 04/08/22 23:24 Temperature Temperature Source Pulse Rate 58 L 68 Pulse Rate [Lying] 55 L Pulse Rate [Sitting (for 1 minute prior to obtaining)] 72 Respiratory Rate 18 22 H Respiratory Effort Respiratory Pattern Blood Pressure 105/67 98/85 H Blood Pressure [Lying] 110/67 Blood Pressure [Sitting (for 1 minute prior to obtaining)] 105/67 Blood Pressure Mean 79 89 Blood Pressure Mean [Lying] 81 Blood Pressure Mean [Sitting (for 1 minute prior to obtaining)] 79 Pulse Ox 97 92 Oxygen Delivery Method Room Air Room Air Weight Weight: 154 lb 12.232 oz Body Mass Index (BMI) 19.8 Physical Exam Const no apparent distress Constitutional Narrative: AXOX2 (stated it was 2001) General Appearance: cooperative Orientation / Consciousness: confused HEENT normocephalic and head/scalp atraumatic Eyes PERRL and EOMs intact bilaterally Neck supple Lymph Lymphatic: no lymphadenopathy noted Resp normal respiratory effort, normal air movement and clear to auscultation bi laterally Cardio S1 normal heart sound and S2 normal heart sound Rhythm: abnormal rhythm GI normal to inspection, nondistended, normoactive bowel sounds Extremity no clubbing, cyanosis or edema Skin Lesions: no lesions Neuro CN's II-XII intact bilaterally Psych Attitude: agitated Mood & Affect: anxious Results Lab / Micro Data Result Diagrams: 04/08/22 21:20 04/08/22 21:20 Labs: Laboratory Results - last 24 hr 04/08/22 21:20: WBC 18.8 H, RBC 4.82, Hgb 14.9, Hct 45.6, MCV 94.6 H, MCH 30.9, MCHC 32.7, RDW Std Deviation 48.1 H, RDW Coeff of [place] 13.8, Plt Count 226, MPV 10.8, Immature Gran % (Auto) 1.000 H, Neut % (Auto) 87.8 H, Lymph % (Auto) 3.6 L , [place] % (Auto) 7.3, Eos % (Auto) 0.1, Baso % (Auto) 0.2, Absolute Neuts (auto) 16.5 H, Absolute Lymphs (auto) 0.67 L, Nucleated RBC % 0 04/08/22 21:20: PT 15.3 H, INR 1.2, APTT 28.9 04/08/22 21:20: Sodium 142, Potassium 3.9, Chloride 109 H, Carbon Dioxide 24.0, Anion Gap 9, BUN 36 H, Creatinine 3.05 H, Estim Creat Clear Calc 18.22, Est GFR (MDRD) Af Amer 25 L, Est GFR (MDRD) Non-Af 21 L, BUN/Creatinine Ratio 11.8, Glucose 128 H, Calcium 8.8, Total Bilirubin 1.00, AST 18, ALT 19, Alkaline Phosphatase 117, Troponin I High Sens 442 H*, Total Protein 7.4, Albumin 3.7, Globulin 3.7, Albumin/Globulin Ratio 1.0 04/08/22 21:20: Lactic Acid 2.8 H* 04/08/22 21:20: B-Natriuretic Peptide 54.6 04/08/22 22:20: Urine Color Yellow, Urine Clarity Clear, Urine pH 6.0, Ur Specific [place] 1.020, Urine Protein 30 H, Urine Glucose (UA) Normal, Urine Ketones Negative, Urine Occult Blood 25 H, Urine Nitrite Negative, Urine Bilirubin Negative, Urine Urobilinogen Normal, Ur Leukocyte Esterase Negative, Urine RBC 0 SEEN, Urine WBC 0-5 SEEN, Ur Squamous Epith Cells 0-5 SEEN, Urine Bacteria 0 SEEN, Urine Mucus 0 SEEN Micro: Microbiology 05/16/22 22:10 Nasal Secretion SARS-CoV-2 & FLU Antigen (Rapid) - Final Radiology Impression Brain CT 04/08/22 21:50 IMPRESSION: undefined Chest X-Ray 04/08/22 21:55 IMPRESSION: No acute cardiopulmonary disease. Electronically Signed: Shay Wood MD at 22:34 EDT , Assessment & Plan Assessment/Plan (1) Acute dehydration: (2) Elevated troponin: (3) HLD (hyperlipidemia): QUALIFIERS: Hyperlipidemia type: unspecified Qualified Code(s): E78.5 - Hyperlipidemia, unspecified (4) History of malignant neoplasm of bronchus and lung: (5) History of venous thrombosis and embolism: (6) History of tobacco use: PLAN: 1. Elevated troponin possible NSTEMI?patient will be admitted to progressive care unit and cycle troponins, will order nitroglycerin, oxygen and aspirin per routine protocol and may need cardiology consult in the a.m. 2. Confusion\possible dementia?we will need to consult case management for discharge planning 3. Leukocytosis with elevated lactic acid?patient may be septic, however no source of bacterial infection has been found patient did receive a dose of Zosyn in the emergency room for broad-spectrum coverage and will continue with aggressive IV hydration therapy and recheck lab studies CBC and BMP and lactic acid to monitor progress. 4. Hyperlipidemia?continue statin medication 5. DVT prophylaxis?low molecular weight heparin Charges/Coding Visit Charges Inpatient E&M: 04346 Init Hosp L3
--- NOTE | 2022-04-09 00:42 | NURSING ---
pt observed on floor at end of bed. pt stated was trying to get out of bed to get pain medication. pt assisted back to bed assessment complete no new injuries noted pt denies new injuries. ER doctor updated.
[2022-04-09 00:43] LABS: Troponin-I HS 1105 pg/mL (3.0-78.0)
--- NOTE | 2022-04-09 00:45 | NURSING ---
Pts primary rn aware of pts troponin of 1105 at this time.
[2022-04-09 01:34] LABS: Reflex Lactate? Y
[2022-04-09] MEDS: 0.9% Normal Saline 1,000 ML 125 ML IV ×3 (01:54→18:25)
[2022-04-09] MEDS: Acetaminophen 325 MG Tablet 650 MG PO (01:55)
[2022-04-09] MEDS: 0.9% Saline Lock 10 ML Syringe IV (01:57)
[2022-04-09 02:47] LABS: Lactic Acid 3.5 mmol/L (0.4-1.9)
[2022-04-09] MEDS: Morphine 2 MG/ML Syringe IV (03:04)
[2022-04-09] MEDS: Ondansetron ODT 4 MG Tablet PO ×3 (03:09→18:40)
[2022-04-09 03:57] LABS: Troponin-I HS 1894 pg/mL (3.0-78.0)
[2022-04-09 04:46] LABS: Anion Gap 9 (5-15); BUN 38 mg/dL (7-18); BUN/Creat Ratio 13.1 RATIO (10-20); Calcium,Total 8.3 mg/dL (8.5-10.1); Chloride 113 mmol/L (98-107); Creatinine, Serum 2.91 mg/dL (0.70-1.30); EST Glomerular Filtration Rate 22 mL/min (>60); Est Glom Filt Rate - Afr Amer 27 mL/min (>60); Estimated Creatinine Clearance 18.39 ml/min; Glucose 123 mg/dL (74-106); Potassium 4.2 mmol/L (3.5-5.1); Sodium Level 143 mmol/L (136-145); Thyroid Stim Hormone (TSH) 1.78 uIU/mL (0.358-3.74)
[2022-04-09 07:06] LABS: Absolute Lymphocyte Count 1.04 X10^3/uL (0.83-4.51); Absolute Neutrophil Count 11.4 X10^3/uL (2.0-7.7); Basophil# 0.03 X10^3/uL; Basophil% 0.2 % (0-1); Eosinophil# 0.04 X10^3/uL; Eosinophils% 0.3 % (0-5); Hematocrit 41.3 % (40-54); Hemoglobin 13.4 g/dL (13.0-16.5); Lymphocyte # 1.04 X10^3/ul (0.83-4.51); Lymphocyte % 7.6 % (19-41); Mean Corp Hgb Conc 32.4 g/dL (32-36); Mean Corpuscular Hgb 30.7 pg (27.0-32.0); Mean Corpuscular Volume 94.7 fL (80-94); Mean Platelet Vol. 11.1 fl (6.2-12.0); Monocyte# 1.18 X10^3/uL; Monocyte% 8.6 % (0-10); NRBC Flagged by Analyzer 0 % (0-5); Neutrophil # 11.36 X10^3/uL (2.7-7.7); Neutrophil % 82.6 % (47-70); Platelet Count 184 K/mm3 (150-450); RBC Distribution Width CV 13.9 % (11.6-14.6); RBC Distribution Width SD 48.5 fl (35.1-43.9); Red Blood Count 4.36 M/mm3 (4.6-6.2); White Blood Count 13.7 K/mm3 (4.4-11.0)
--- NOTE | 2022-04-09 08:34 | PCM.CONS.C ---
Assessment & Plan Assessment/Plan (1) Elevated troponin: PLAN: The patient has elevated troponin I levels compatible with an acute non-ST segment elevation IL. At the moment is unclear whether this is a type I event versus a type II event brought out by a potential underlying sepsis syndrome. At the present time he is continuing to be monitored. He will continue medical therapy as deemed appropriate. He will continue noninvasive evaluation which would include a transthoracic echocardiogram to evaluate his left ventricular wall motion and systolic function. He is not an ideal candidate for further invasive evaluation at this time based upon his elevated creatinine levels and the concerns of IV contrast related nephropathy. At the same time there are concerns in proceeding with an invasive valuation based upon concerns of any underlying possible sepsis as well as concerns with dementia. In the past, at the time of his previous cardiovascular consultation, he did not want to proceed with any additional invasive/interventional cardiovascular evaluation or care. (2) Atherosclerotic heart disease of [place] coronary artery without angina pectoris: QUALIFIERS: [place] vs. transplanted heart: [place] heart Qualified Code(s): I25.10 - Atherosclerotic heart disease of [place] coronary artery without angina pectoris PLAN: He does have a history of CAD. He will continue medical therapy as deemed appropriate. (3) History of coronary artery bypass surgery: PLAN: History of CABG as noted. Again at the moment he will continue to be monitored. He will continue medical therapy. (4) Atrioventricular conduction disorder: PLAN: He has a documented history of AV conduction disease with 2-1 AV block in the past. He had declined further evaluation and care at that time including placement of permanent pacemaker placement. He should avoid rate limiting therapy as best as possible to minimize the risk of recurrence of any ongoing AV conduction abnormalities. (5) PAF (paroxysmal atrial fibrillation): PLAN: He has a history of PAF. He will be monitored. He will continue medical therapy as deemed appropriate taking into consideration the other cardiovascular or noncardiovascular diagnoses. (6) HLD (hyperlipidemia): QUALIFIERS: Hyperlipidemia type: unspecified Qualified Code(s): E78.5 - Hyperlipidemia, unspecified PLAN: He should continue risk factor evaluation care as deemed appropriate. (7) Renal insufficiency: PLAN: He does have chronic renal insufficiency and now what appears to be acute on chronic renal insufficiency. There is concern this may be related to dehydration. Thus he is receiving IV fluids. He will need to be monitored for any obvious volume overload. However, at the same time, his renal insufficiency does present a challenge with any type of IV contrast related studies based on the concerns of IV contrast related nephropathy and worsening renal function. (8) Sepsis: PLAN: He will be evaluated by internal medicine and other specialties/subspecialties as deemed appropriate for concerns of an underlying sepsis syndrome. (9) Dementia: PLAN: Apparently there is concerns that he has now developed a dementia. He will continue evaluation care per internal medicine. However this does also play a role in what type of studies and/or procedures he may be able to tolerate, etc. He also may need a post hospital assistance with respect to where he lives and the type of support he receives, etc. Addt'l Comments This note was generated using a voice recognition system and there may be incorrect words, spelling or punctuation that were not noted when reviewing the office note prior to saving. HPI Consult Data Date of Consult: 04/09/22 HPI Narrative HPI Narrative: BLAINE JAVIER, is a 81 year old white male who presents for cardiovascular consultation based upon concerns of abnormal cardiac enzymes in the setting of cardiovascular history which has included previous AV conduction system disorder with second-degree AV block Mobitz 1 as well as previous findings of 2-1 AV block, paroxysmal atrial fibrillation, CAD status post CABG, abdominal aortic aneurysm status postrepair, hyperlipidemia, history of thromboembolic events, history of lung carcinoma, and history of renal insufficiency now with concerns of possible sepsis and dementia. The patient underwent cardiovascular consultation in December 2019. At that point in time he declined additional cardiovascular evaluation care including consideration for permanent pacemaker placement. It appears he has not presented for outpatient cardiovascular follow-up since that time. He states he lives alone and for the most part eats at restaurants. He states his nephew checks on him. At the moment he does not recall, other than his nephew telling him that he should be in the hospital, as to why he is here. He declines any concerns of ongoing chest discomfort or difficulty breathing. He does not recall having any near syncopal or syncopal events. He does not recall being ill recently. He states he is thirsty. He was reported as having an elevated WBC and an elevated lactate level of uncertain etiology. His high-sensitivity troponin I levels were elevated at 442 and subsequently increased to 1894. His ECG demonstrated sinus bradycardia with first-degree block with PACs as well as a left axis deviation with a right bundle branch block pattern and an inferior IL pattern of indeterminate age cannot be excluded. He has undergone previous noninvasive and invasive studies as noted below. [facility] Medical History (Updated 04/09/22 @ 08:[address] 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 CAD (coronary artery disease) Chest pain Dementia GERD (gastroesophageal reflux disease) History of colitis History of emphysema History of esophageal reflux History of malignant neoplasm of bronchus and lung History of tobacco use History of venous thrombosis and embolism HLD (hyperlipidemia) Mobitz (type) I (Wenckebach's) atrioventricular block PAF (paroxysmal atrial fibrillation) Renal insufficiency Sepsis Home Medications ondansetron 4 mg PO Q6H PRN PRN #15 tab 10/15/21 [Rx Last Taken Unknown] Allergy/AdvReac Type Severity Reaction Status Date / Time No Known Allergies Allergy Verified 04/08/22 20:37 Surgical History History of abdominal aortic aneurysm repair History of coronary artery bypass surgery (~06/03/11) History of transurethral resection of prostate S/P partial lobectomy of lung Social History Smoking Status: Former smoker alcohol intake: current details: occasional substance use type: does not use ROS Constitutional Constitutional: Reports as per HPI Eyes Eyes: Reports as per HPI ENT HEENT: Reports as per HPI Cardiovascular Cardiovascular: Reports as per HPI Respiratory/Chest Respiratory/Chest: Reports as per HPI Gastrointestinal Gastrointestinal: Reports as per HPI Genitourinary Genitourinary: Reports as per HPI Musculoskeletal Musculoskeletal: Reports as per HPI Integumentary Integumentary: Reports as per HPI Neurologic Neurologic: Reports as per HPI Psychiatric Psychiatric: Reports as per HPI Physical Exam Narrative This is a thin unkept appearing 81-year-old white male who appears to be resting reasonably comfortably at the moment in no acute distress. Const no apparent distress Orientation / Consciousness: awake HEENT normocephalic and head/scalp atraumatic HEENT Narrative: Hearing impaired Teeth and Gingiva: poor dentition Eyes PERRL, EOMs intact bilaterally and conjunctivae normal Neck full ROM, supple and no JVD Chest Chest: midline sternotomy incision Resp Resp Narrative: No obvious ongoing rales or rhonchi Cardio regular rhythm, S1 normal heart sound and S2 normal heart sound Rhythm: abnormal rhythm ectopic beats GI normal to inspection, nondistended, normoactive bowel sounds Extremity no pedal edema Skin no rashes or lesions noted Neuro moves all extremities and no focal motor deficits Risk Stratification Risk Stratification Applicable: Yes Age >/= 65: Yes >/= 3 CAD Risk Factors (HTN, HLD, DM, family hx of CAD, or current smoker): Yes Aspirin Use in the Past 7 Days: No Severe Angina (>/= episodes in 24 hours): No EKG ST Changes >/= 0.5mm: No Positive Cardiac Marker: Yes LOGAN Risk Stratification Score: 3 LOGAN % Risk: 13% Risk Procedure Criteria Type of Procedure Procedure Type: Elective Elective Risks - COVID COVID Risk Discussion: The surgeon/proceduralist and patient have discussed in detail the risk of exposure to and/or potential harm posed by the COVID-19 virus with having a surgery/procedure at this time versus the risk of delaying the surgery/procedure. It is not possible to know either the risk of delaying the surgery or procedure or chance of getting an infection with perfect accuracy, but a joint decision was made between the patient and the surgeon/proceduralist to proceed at this time with the scheduled surgery/procedure as indicated on the consent form. Objective Data Vital Signs: Vital Signs Temp Pulse Resp BP Pulse Ox 97.7 F L 69 17 143/84 H 93 04/09/22 05:10 04/09/22 07:28 04/09/22 05:10 04/09/22 05:10 04/09/22 07:20 Oxygen Delivery Method Room Air Weight: 149 lb 0.52 oz Body Mass Index (BMI) 19.1 Intake & Output: Intake and Output for Last 24 Hours 04/07/22 04/08/22 04/09/22 23:59 23:59 23:59 Intake Total 1100 / 1100 785.42 / 785.42 Output Total 100 / 100 Balance 1100 / 1100 685.42 / 685.42 Lab / Micro Data Result Diagrams: 04/09/22 06:55 04/09/22 03:14 Labs: Laboratory Results - last 24 hr 04/08/22 21:20: WBC 18.8 H, RBC 4.82, Hgb 14.9, Hct 45.6, MCV 94.6 H, MCH 30.9, MCHC 32.7, RDW Std Deviation 48.1 H, RDW Coeff of Chandana 13.8, Plt Count 226, MPV 10.8, Immature Gran % (Auto) 1.000 H, Neut % (Auto) 87.8 H, Lymph % (Auto) 3.6 L, Barton % (Auto) 7.3, Eos % (Auto) 0.1, Baso % (Auto) 0.2, Absolute Neuts (auto) 16.5 H, Absolute Lymphs (auto) 0.67 L, Nucleated RBC % 0 04/08/22 21:20: PT 15.3 H, INR 1.2, APTT 28.9 04/08/22 21:20: Sodium 142, Potassium 3.9, Chloride 109 H, Carbon Dioxide 24.0, Anion Gap 9, BUN 36 H, Creatinine 3.05 H, Estim Creat Clear Calc 18.22, Est GFR (MDRD) Af Amer 25 L, Est GFR (MDRD) Non-Af 21 L, BUN/Creatinine Ratio 11.8, Glucose 128 H, Calcium 8.8, Total Bilirubin 1.00, AST 18, ALT 19, Alkaline Phosphatase 117, Troponin I High Sens 442 H*, Total Protein 7.4, Albumin 3.7, Globulin 3.7, Albumin/Globulin Ratio 1.0 04/08/22 21:20: Lactic Acid 2.8 H* 04/08/22 21:20: B-Natriuretic Peptide 54.6 04/08/22 22:20: Urine Color Yellow, Urine Clarity Clear, Urine pH 6.0, Ur Specific [place] 1.020, Urine Protein 30 H, Urine Glucose (UA) Normal, Urine Ketones Negative, Urine Occult Blood 25 H, Urine Nitrite Negative, Urine Bilirubin Negative, Urine Urobilinogen Normal, Ur Leukocyte Esterase Negative, Urine RBC 0 SEEN, Urine WBC 0-5 SEEN, Ur Squamous Epith Cells 0-5 SEEN, Urine Bacteria 0 SEEN, Urine Mucus 0 SEEN 04/08/22 23:49: Troponin I High Sens 1105 H* 04/09/22 02:02: Lactic Acid 3.5 H* 04/09/22 03:14: Troponin I High Sens 1894 H* 04/09/22 03:14: Sodium 143, Potassium 4.2, Chloride 113 H, Carbon Dioxide 21.0, Anion Gap 9, BUN 38 H, Creatinine 2.91 H, Estim Creat Clear Calc 18.39, Est GFR (MDRD) Af Amer 27 L, Est GFR (MDRD) Non-Af 22 L, BUN/Creatinine Ratio 13.1, Glucose 123 H, Calcium 8.3 L, TSH 1.78 04/09/22 06:55: WBC 13.7 H, RBC 4.36 L, Hgb 13.4, Hct 41.3, MCV 94.7 H, MCH 30.7, MCHC 32.4, RDW Std Deviation 48.5 H, RDW Coeff of Chandana 13.9, Plt Count 184, MPV 11.1, Immature Gran % (Auto) 0.700, Neut % (Auto) 82.6 H, Lymph % (Auto) 7.6 L, Barton % (Auto) 8.6, Eos % (Auto) 0.3, Baso % (Auto) 0.2, Absolute Neuts (auto) 11.4 H, Absolute Lymphs (auto) 1.04, Nucleated RBC % 0 Micro: Microbiology 04/08/22 22:10 Nasal Secretion SARS-CoV-2 & FLU Antigen (Rapid) - Final Cardiology Labs/Tests 04/08/22 21:20: WBC 18.8 H, RBC 4.82, Hgb 14.9, Hct 45.6, MCV 94.6 H, MCH 30.9, MCHC 32.7, Plt Count 226, MPV 10.8, Immature Gran % (Auto) 1.000 H, Neut % (Auto) 87.8 H, Lymph % (Auto) 3.6 L, Barton % (Auto) 7.3, Eos % (Auto) 0.1, Baso % (Auto) 0.2, Absolute Neuts (auto) 16.5 H, Nucleated RBC % 0 04/08/22 21:20: PT 15.3 H, INR 1.2, APTT 28.9 04/08/22 21:20: Sodium 142, Potassium 3.9, Chloride 109 H, Carbon Dioxide 24.0, Anion Gap 9, BUN 36 H, Creatinine 3.05 H, Est GFR (MDRD) Af Amer 25 L, Est GFR (MDRD) Non-Af 21 L, BUN/Creatinine Ratio 11.8, Glucose 128 H, Calcium 8.8, Total Bilirubin 1.00 04/08/22 21:20: Lactic Acid 2.8 H* 04/08/22 21:20: B-Natriuretic Peptide 54.6 04/08/22 22:20: Urine Color Yellow, Urine Clarity Clear, Urine pH 6.0, Ur Specific [place] 1.020, Urine Protein 30 H, Urine Glucose (UA) Normal, Urine Ketones Negative, Urine Occult Blood 25 H, Urine Nitrite Negative, Urine Bilirubin Negative, Urine Urobilinogen Normal, Ur Leukocyte Esterase Negative, Urine RBC 0 SEEN, Urine WBC 0-5 SEEN 04/09/22 02:02: Lactic Acid 3.5 H* 04/09/22 03:14: Sodium 143, Potassium 4.2, Chloride 113 H, Carbon Dioxide 21.0, Anion Gap 9, BUN 38 H, Creatinine 2.91 H, Est GFR (MDRD) Af Amer 27 L, Est GFR (MDRD) Non-Af 22 L, BUN/Creatinine Ratio 13.1, Glucose 123 H, Calcium 8.3 L 04/09/22 06:55: WBC 13.7 H, RBC 4.36 L, Hgb 13.4, Hct 41.3, MCV 94.7 H, MCH 30.7, MCHC 32.4, Plt Count 184, MPV 11.1, Immature Gran % (Auto) 0.700, Neut % (Auto) 82.6 H, Lymph % (Auto) 7.6 L, Barton % (Auto) 8.6, Eos % (Auto) 0.3, Baso % (Auto) 0.2, Absolute Neuts (auto) 11.4 H, Nucleated RBC % 0 Rhythm: Sinus rhythm/sinus bradycardia; PACs EKG: As noted above ECHO: Left ventricle normal with an LVEF of 55% Mild MR Mild TR Mild aortic valve insufficiency Estimated RV systolic pressure 41 mmHg Echo: 01-18-2020 Interpretation Summary Left ventricular systolic function is normal. The estimated ejection fraction is 65 %. Sigmoid septum. Trivial mitral valve insufficiency. Mild to moderate (1-2+) tricuspid valve insufficiency. Trivial eccentric aortic valve insufficiency. Mild (1+) eccentric pulmonic valve insufficiency. Right ventricular systolic pressure estimated to be 39 mmHg. Diastolic function is indeterminate. Stress Test: 06-06-2011 Pharmacologic stress nuclear imaging study considered abnormal with evidence of inferolateral ischemia and an LVEF of 60% Cardiac Cath: 05-31-2011 Left ventricle normal with an LVEF of 60% Left main coronary artery with distal 50% stenosis LAD with ostial 25% stenosis in proximal 95% stenosis and mid 75% stenosis LCx with ostial 50% stenosis OM 2 with 50 to 75% stenosis RCA with mid 85% stenosis Right to left collateral flow from the LAD to the RCA distribution Left subclavian artery with proximal 25% stenosis Left carotid artery with ostial 50% stenosis CARD patent Abdominal aortic tortuous with findings compatible with an infrarenal dilatation/aneurysm CT Surgery: 06-03-2011: [facility]: CARD to the LAD; SVG to the lateral circumflex; SVG to the diagonal branch; SVG to the RCA Holter monitor: 01-31-2020 Sinus rhythm with first-degree AV block with episodes of second-degree AV block Mobitz 1 and 2-1 AV block; rare to occasional PACs and rare PVCs. Radiography Diagnostic Testing: Radiology Impression Brain CT 04/08/22 21:50 IMPRESSION: undefined Chest X-Ray 04/08/22 21:55 IMPRESSION: No acute cardiopulmonary disease. Electronically Signed: Shay Wood MD at 22:34 EDT ,
--- NOTE | 2022-04-09 08:50 | ECHOD_ITS ---
Reason For Study: S/P [place] Procedure This was a 2D Doppler, Color Flow transthoracic echocardiogram. The study was technically difficult. Patient confused and unable to lay down or still. Exam performed portable in patient room. Left Ventricle Normal LV size. Sigmoid septum. Segmental dysfunction with preserved ejection fraction (see wall motion). The estimated ejection fraction is 55 %. Post operative septal motion. Diastolic function is indeterminate. Mid-inferoseptal : Hypokinetic. Mid-anteroseptal : Hypokinetic. Right Ventricle Normal RV size. Normal systolic function. Atria Normal left atrium. Normal right atrium. No doppler evidence for ASD. Mitral Valve There is no mitral annular calcification. Mild focal mitral valve calcification of the anterior leaflet. Mild-Moderate (1-2+) mitral valve insufficiency. Tricuspid Valve Normal tricuspid valve. Mild tricuspid valve insufficiency. Right ventricular systolic pressure estimated to be 38 mmHg. Aortic Valve Trisinus/trileaflet aortic valve. Normal aortic valve. Trivial aortic valve insufficiency. Pulmonic Valve The pulmonic valve is not well visualized. Mild (1+) pulmonic valve insufficiency. Great Vessels Normal sized aortic root. Pericardium/Pleural No pericardial effusion. MMode/2D Measurements & Calculations LVIDd: 4.6 cm IVSd: 1.1 cm Ao root diam: 3.6 cm LVIDs: 3.1 cm LVPWd: 1.1 cm RVDd: 3.6 cm FS: 31.9 % LAV(MOD-bp): 48.6 ml LVAd ap4: 33.1 cm2 SV(MOD-sp4): 56.5 ml LAV(MOD-bp) Indexed: 25.3 ml/m2 LVLd ap4: 8.7 cm LAV(MOD-sp2): 49.2 ml EDV(MOD-sp4): 102.9 ml LAV(MOD-sp4): 46.1 ml EDV(sp4-el): 106.6 ml LVAs ap4: 19.9 cm2 LVLs ap4: 7.3 cm ESV(MOD-sp4): 46.3 ml ESV(sp4-el): 46.2 ml EF(MOD-sp4): 55.0 % EF(sp4-el): 56.7 % SV(sp4-el): 60.5 ml LA A4 area: 16.3 cm2 LA dimension(2D): 3.2 cm RA A4 area: 15.5 cm2 Time Measurements MV dec time: 0.14 sec Doppler Measurements & Calculations MV E max rey: 54.0 cm/sec Lat Peak E' Rey: 7.5 cm/sec Med Peak E' Rey: 4.8 cm/sec MV A max rey: 65.7 cm/sec E/E' lat: 7.2 E/E' med: 11.3 MV E/A: 0.82 Ao V2 max: 115.4 cm/sec AI max rey: 512.7 cm/sec LV V1 max: 109.1 cm/sec Ao max P.3 mmHg AI max P.1 mmHg LV V1 max P.8 mmHg AI dec slope: 399.5 cm/sec2 AI P1/2t: 375.9 msec PA V2 max: 82.4 cm/sec TR max rey: 294.9 cm/sec TR max P.8 mmHg ECHO/Echo Complete Interpretation Summary Segmental dysfunction with preserved ejection fraction (see wall motion). The estimated ejection fraction is 55 %. Post operative septal motion. Sigmoid septum. Mild focal mitral valve calcification of the anterior leaflet. Mild-Moderate (1-2+) mitral valve insufficiency. Mild tricuspid valve insufficiency. Trivial aortic valve insufficiency. Mild (1+) pulmonic valve insufficiency. Right ventricular systolic pressure estimated to be 38 mmHg. Diastolic function is indeterminate. Ordering Physician: Hernandez West Referring Physician: GEORGE FERNANDES Performed By: Divya Yun RDCS
--- NOTE | 2022-04-09 10:13 | CASEMGMT ---
Per RN patient's nephew called in and said he would like patient placed in a penitentiary facility. SW called patient's nephew Carlitos. LAURA introduced self and role at [facility]. Carlitos said he is the Healthcare POA and Durable POA. LAURA asked if he could bring in documents as the ones [facility] has on file list patient's and then a Sean Munguia. Carlitos will contact the assistant district attorney and get copies of the documents for SW. Carlitos said patient lives alone, he fell 3 times within 30 minutes, he was dehydrated, and is not caring for himself. Carlitos said for the most part patient is normally alert and oriented. However, Carlitos said he has noticed some memory issues with patient. SW went over how the process works and that patient will stay in the hospital until we have an answer from insurance and this could be a couple of days. SW asked about SNF choices and Carlitos said he would like [facility] as that is close to him. He did not have a second or third choice. SW told him SW will print a list and put it in patient's room. SW printed a list of SNF providers including quality and resource use data and consistent with the patient?s preferred geographic region, medical needs, and insurance network. SW highlighted the facilities that take patient's insurance. SW will work on referral to [facility]. Ania GOODRICH
[2022-04-09] MEDS: Pantoprazole Sodium 40 MG Tablet PO (10:19)
[2022-04-09] MEDS: Aspirin 81 MG TAB.CHEW PO (10:20)
[2022-04-09] MEDS: Mag Hydrox/Al Hydrox/Simeth 30 ML UDC PO (10:20)
[2022-04-09] MEDS: Enoxaparin 30 MG/0.3 ML Syringe SC (10:21)
[2022-04-09] MEDS: LORazepam 0.5 MG Tablet PO (11:38)
--- NOTE | 2022-04-09 11:52 | CT_ITS ---
STUDY: CT CHEST T ABDOMEN WITHOUT CONTRAST REASON FOR EXAM: Male, 81 years old. Abd pain/hypoxia -- without contrast RADIATION DOSAGE (If Supplied By Facility): CTDIvol = ( 8.33 ) mGy, DLP = ( 620.11 ) mGycm TECHNIQUE: Transaxial imaging was performed without the administration of intravenous contrast material. Individualized dose optimization techniques were used for this CT. COMPARISON: Comparison is made with prior chest radiograph dated 04/08/2022. FINDINGS: CHEST Post surgical changes are seen in the medial aspect of the right upper lobe with a linear fibrocalcific scarring medially. Mild increased interstitial markings at the lung bases slightly more prominent on the left side suggestive of scarring. There is no demonstrated pleural abnormality. Sternal cerclage wires and vascular clips are present from a prior sternotomy and coronary artery bypass graft procedure (CABG). There are calcifications of the coronary arteries. Normal mediastinum. Normal hilar regions. Normal unenhanced pulmonary arteries. There is atherosclerotic calcification of the aortic arch with tortuosity and elongation of the aortic arch and descending thoracic aorta. There are multi-level degenerative changes of the thoracic spine. There is no demonstrated abnormality of the visualized upper abdomen. ABDOMEN Normal liver. Normal gallbladder and extrahepatic biliary system. Normal spleen. Normal pancreas. Normal bilateral adrenal glands. 1 cm cyst in the upper lateral aspect of the right kidney. 3.2 mm calculus in the upper pole calyx of the right kidney. There is a 2 cm cyst in the mid posterior aspect of the left kidney. There is also evidence of a 5.2 cm x 6.7 cm cyst in the mid and inferior anterior aspects of the left kidney. Fluid-filled distention of the stomach. Normal small intestine. Normal colon. The appendix is visualized and appears normal. There is diffuse atherosclerotic calcification of the abdominal aorta. Endoluminal stent grafting is seen within the abdominal aortic aneurysm. The nulato aorta measures 5 cm in transverse dimension. Normal inferior vena cava. Normal retroperitoneum. Normal abdominal wall. There are diffuse degenerative changes of the visualized lumbar spine. CT/CT Chest AND Abd W/O Contrast IMPRESSION: Postsurgical changes in the right upper lobe fibrocalcific scarring. Mild scarring at the lung bases. Bilateral renal cysts. Nonobstructing calculus in the upper pole cortex of the right kidney. Endoluminal stent grafting of an infrarenal abdominal aortic aneurysm. Electronically Signed: Jose Dickey MD at 12:22 EDT ,
--- NOTE | 2022-04-09 12:18 | PN.HOSP_ITS ---
Hospitalist Note Patient is an 81-year-old male who was admitted to [facility] on the mold filler of 04/09/2022 for evaluation and management of adult failure to thrive, generalized weakness and chest pain. Patient was subsequently found to have elevated troponins in the ED. Cardiology was consulted and would like to proceed with echocardiogram to assess cardiac function. Further management pending results of echo. Patient seen by Tanmay Purcell PA-C, under the supervision of Dr. Chou.
--- NOTE | 2022-04-09 14:35 | CASEMGMT ---
LAURA faxed referral to [facility]. Await response. Ania Daugherty PRODUCTION ADMINISTRATIVE ASSISTANT KP
--- NOTE | 2022-04-09 15:05 | CASEMGMT ---
LAURA could not get fax to go through so LAURA e-mailed the referral to [facility]. Await response. Ania Daugherty SPOUT TENDER KP
[2022-04-09] MEDS: LORazepam 2 MG/ML Syringe 1 MG IV (18:40)
[2022-04-09] MEDS: oxyCODONE 5 MG Tablet PO (20:33)
[2022-04-09] MEDS: 0.9% Normal Saline 1,000 ML 200 ML IV ×2 (20:34→23:53)
[2022-04-09] MEDS: QUEtiapine 25 MG Tablet PO (21:53)
[2022-04-09] MEDS: LORazepam 2 MG/ML Syringe 0.5 MG IV (21:55)
[2022-04-10] VITALS (10 sets, daily range): BP systolic 89–158; BP diastolic 58–120; PULSE 66–87; RESP 18–28; TEMP 36.2–36.7; O2SAT 90–97
[2022-04-10] MEDS: LORazepam 2 MG/ML Syringe 1.5 MG IV ×2 (00:44→06:27)
[2022-04-10] MEDS: 0.9% Saline Lock 10 ML Syringe IV ×3 (00:46→21:12)
[2022-04-10] MEDS: 0.9% Normal Saline 1,000 ML 200 ML IV (05:00)
[2022-04-10 06:45] LABS: Absolute Lymphocyte Count 0.92 X10^3/uL (0.83-4.51); Basophil# 0.03 X10^3/uL; Basophil% 0.2 % (0-1); Eosinophil# 0.17 X10^3/uL; Eosinophils% 1.4 % (0-5); Hematocrit 42.6 % (40-54); Hemoglobin 13.4 g/dL (13.0-16.5); Lymphocyte # 0.92 X10^3/ul (0.83-4.51); Lymphocyte % 7.5 % (19-41); Mean Corp Hgb Conc 31.5 g/dL (32-36); Mean Corpuscular Hgb 30.2 pg (27.0-32.0); Mean Corpuscular Volume 95.9 fL (80-94); Monocyte# 0.98 X10^3/uL; NRBC Flagged by Analyzer 0 % (0-5); Neutrophil # 10.03 X10^3/uL (2.7-7.7); Neutrophil % 82.1 % (47-70); Platelet Count 158 K/mm3 (150-450); RBC Distribution Width CV 14.3 % (11.6-14.6); RBC Distribution Width SD 50.1 fl (35.1-43.9); Red Blood Count 4.44 M/mm3 (4.6-6.2); White Blood Count 12.2 K/mm3 (4.4-11.0)
[2022-04-10 07:13] LABS: Anion Gap 10 (5-15); BUN 29 mg/dL (7-18); BUN/Creat Ratio 14.1 RATIO (10-20); Calcium,Total 7.9 mg/dL (8.5-10.1); Chloride 117 mmol/L (98-107); Creatinine, Serum 2.05 mg/dL (0.70-1.30); EST Glomerular Filtration Rate 33 mL/min (>60); Est Glom Filt Rate - Afr Amer 40 mL/min (>60); Estimated Creatinine Clearance 26.11 ml/min; Glucose 98 mg/dL (74-106); Magnesium 1.9 mg/dL (1.6-2.6); Potassium 3.9 mmol/L (3.5-5.1); Sodium Level 143 mmol/L (136-145)
[2022-04-10] MEDS: Ipratropium/Albuterol Sulfate 3 ML AMPUL.NEB INHALATION ×3 (09:16→22:54)
[2022-04-10] MEDS: Furosemide 40 MG/4 ML Vial IV (09:26)
[2022-04-10] MEDS: QUEtiapine 25 MG Tablet PO ×2 (10:15→21:01)
[2022-04-10] MEDS: Aspirin 81 MG TAB.CHEW PO (10:15)
[2022-04-10] MEDS: Pantoprazole Sodium 40 MG Tablet PO (10:15)
[2022-04-10] MEDS: Enoxaparin 30 MG/0.3 ML Syringe SC (10:15)
[2022-04-10] MEDS: oxyCODONE 5 MG Tablet PO ×2 (11:38→18:32)
--- NOTE | 2022-04-10 12:03 | CHAPLAIN ---
Type of Pastoral Visit _x__ Initial Visit ___ Follow-up Visit ___ On-call Visit ___ General Patient Visit ___ Spiritual Assessment ___ Family Conference ___ Bereavement ___ Rapid Response ___ Code Blue ___ Other (describe below) Pastoral Care Referral From ___ Patient _x__ Family ___ Nurse ___ Physician ___ Abattoir Manager ___ Mangle Operator Garments ___ Other (describe below) Sacrament/Intervention ___ Active listening ___ Anointing ___ Religious ___ Bereavement ___ Communion ___ Erica exploration ___ ___ Life review ___ Prayer ___ Reconciliation ___ Sacrament of Sick _x__ Supportive presence ___ Wedding ___ Other (describe below) Pastoral Comments RN in room; patient is not cooperative with his meds and refuses assistance; pt easily falls back to sleep intermittently; introduced self and role to patient but he does not acknowledge presence; RN reports his agitation and confusion
--- NOTE | 2022-04-10 12:33 | PCM.PN.CARD ---
Subjective Subjective The patient has been on reported as being agitated. He still requires a sitter 16/06. He has not voiced any obvious acute cardiac complaints. Objective Data Vital Signs: Vital Signs Temp Pulse Resp BP Pulse Ox 97.8 F 86 28 H 158/81 H 97 04/10/22 09:04 04/10/22 09:25 04/10/22 09:25 04/10/22 09:04 04/10/22 09:04 Oxygen Flow Rate (L/min) 4 Oxygen Delivery Method Nasal Cannula Weight: 149 lb 0.52 oz Body Mass Index (BMI) 19.1 Intake & Output: Intake and Output for Last 24 Hours 04/08/22 04/09/22 04/10/22 23:59 23:59 23:59 Intake Total 1100 / 1100 3717.50 / 3917.50 2433.33 / 2433.33 Output Total 100 / 400 1500 / 1500 Balance 1100 / 1100 3617.50 / 3517.50 933.33 / 933.33 Lab / Micro Data Result Diagrams: 04/10/22 06:28 04/10/22 06:28 Labs: Laboratory Results - last 24 hr 04/10/22 06:28: WBC 12.2 H, RBC 4.44 L, Hgb 13.4, Hct 42.6, MCV 95.9 H, MCH 30.2, MCHC 31.5 L, RDW Std Deviation 50.1 H, RDW Coeff of [place]ana 14.3, Plt Count 158, MPV 11.0, Immature Gran % (Auto) 0.800, Neut % (Auto) 82.1 H, Lymph % (Auto) 7.5 L, Howard % (Auto) 8.0, Eos % (Auto) 1.4, Baso % (Auto) 0.2, Absolute Neuts (auto) 10.0 H, Absolute Lymphs (auto) 0.92, Nucleated RBC % 0 04/10/22 06:28: Sodium 143, Potassium 3.9, Chloride 117 H, Carbon Dioxide 16.0 L, Anion Gap 10, BUN 29 H, Creatinine 2.05 H, Estim Creat Clear Calc 26.11, Est GFR (MDRD) Af Amer 40 L, Est GFR (MDRD) Non-Af 33 L, BUN/Creatinine Ratio 14.1, Glucose 98, Calcium 7.9 L, Magnesium 1.9 Cardiology Labs/Tests 04/10/22 06:28: WBC 12.2 H, RBC 4.44 L, Hgb 13.4, Hct 42.6, MCV 95.9 H, MCH 30.2, MCHC 31.5 L, Plt Count 158, MPV 11.0, Immature Gran % (Auto) 0.800, Neut % (Auto) 82.1 H, Lymph % (Auto) 7.5 L, Howard % (Auto) 8.0, Eos % (Auto) 1.4, Baso % (Auto) 0.2, Absolute Neuts (auto) 10.0 H, Nucleated RBC % 0 04/10/22 06:28: Sodium 143, Potassium 3.9, Chloride 117 H, Carbon Dioxide 16.0 L, Anion Gap 10, BUN 29 H, Creatinine 2.05 H, Est GFR (MDRD) Af Amer 40 L, Est GFR (MDRD) Non-Af 33 L, BUN/Creatinine Ratio 14.1, Glucose 98, Calcium 7.9 L, Magnesium 1.9 Rhythm: Sinus rhythm; episodes of 2-1 AV block Radiography Diagnostic Testing: Radiology Impression Echocardiogram 04/09/22 08:50 Interpretation Summary Segmental dysfunction with preserved ejection fraction (see wall motion). The estimated ejection fraction is 55 %. Post operative septal motion. Sigmoid septum. Mild focal mitral valve calcification of the anterior leaflet. Mild-Moderate (1-2+) mitral valve insufficiency. Mild tricuspid valve insufficiency. Trivial aortic valve insufficiency. Mild (1+) pulmonic valve insufficiency. Right ventricular systolic pressure estimated to be 38 mmHg. Diastolic function is indeterminate. Ordering Physician: Hernandez West Referring Physician: GEORGE FERNANDES Performed By: Divya Yun, RDMAGDI Physical Exam Narrative This is a thin unkept appearing 81-year-old white male who appears to be having episodes of agitation. Const no apparent distress HEENT normocephalic and head/scalp atraumatic Eyes PERRL, EOMs intact bilaterally and conjunctivae normal Neck full ROM, supple and no JVD Chest Chest: midline sternotomy incision Resp Resp Narrative: No obvious ongoing rales or rhonchi Cardio regular rhythm, S1 normal heart sound and S2 normal heart sound Rhythm: abnormal rhythm ectopic beats GI normal to inspection, nondistended, normoactive bowel sounds Extremity no pedal edema Skin no rashes or lesions noted Neuro moves all extremities and no focal motor deficits Assessment & Plan Assessment/Plan (1) Elevated troponin: PLAN: The patient has elevated troponin I levels compatible with an acute non-ST segment elevation AR. At the moment is unclear whether this is a type I event versus a type II event brought out by a potential underlying sepsis syndrome. At the present time he is continuing to be monitored. He will continue medical therapy as deemed appropriate. He has undergone evaluation with a transthoracic echocardiogram as noted. His overall LV systolic function appears to remain preserved. He is not an ideal candidate for further invasive evaluation at this time based upon multiple issues including what appears to be his ongoing dementia and agitation as well as his elevated creatinine levels and the concerns of IV contrast related nephropathy. In the past, at the time of his previous cardiovascular consultation, he did not want to proceed with any additional invasive/interventional cardiovascular evaluation or care. (2) Atherosclerotic heart disease of [place] coronary artery without angina pectoris: QUALIFIERS: [place] vs. transplanted heart: [place] heart Qualified Code(s): I25.10 - Atherosclerotic heart disease of [place] coronary artery without angina pectoris PLAN: He does have a history of CAD. He will continue medical therapy as deemed appropriate. (3) History of coronary artery bypass surgery: PLAN: History of CABG as noted. Again at the moment he will continue to be monitored. He will continue medical therapy. (4) Atrioventricular conduction disorder: PLAN: He has a documented history of AV conduction disease with 2-1 AV block in the past. He has demonstrated recurrence of this while in the hospital. He had declined further evaluation and care at that time including placement of permanent pacemaker placement. At the present time he is continuing to avoid rate limiting medications. Based upon his previous request and his ongoing dementia and agitation he does not appear to be an ideal candidate at this time for permanent pacemaker placement. (5) PAF (paroxysmal atrial fibrillation): PLAN: He has a history of PAF. He will be monitored. He will continue medical therapy as deemed appropriate taking into consideration the other cardiovascular or noncardiovascular diagnoses. (6) HLD (hyperlipidemia): QUALIFIERS: Hyperlipidemia type: unspecified Qualified Code(s): E78.5 - Hyperlipidemia, unspecified PLAN: He should continue risk factor evaluation care as deemed appropriate. (7) Renal insufficiency: PLAN: His renal function has improved somewhat. It does need to be followed over time. (8) Sepsis: PLAN: He will be evaluated by internal medicine and other specialties/subspecialties as deemed appropriate for concerns of an underlying sepsis syndrome. (9) Dementia: PLAN: Apparently there is concerns that he has now developed a dementia. He has demonstrated episodes of agitation. He continues to require a sitter 16/06. He will continue evaluation care per internal medicine. However this does also play a role in what type of studies and/or procedures he may be able to tolerate, etc. He also may need a post hospital assistance with respect to where he lives and the type of support he receives, etc. Addt'l Comments Overall, at the present time, from a cardiovascular standpoint, the patient will continue conservative medical management. He will continue evaluation care per internal medicine with respect to his ongoing comorbidities, dementia, etc. This note was generated using a voice recognition system and there may be incorrect words, spelling or punctuation that were not noted when reviewing the office note prior to saving. Procedure Criteria Type of Procedure Procedure Type: Elective Elective Risks - COVID COVID Risk Discussion: The surgeon/proceduralist and patient have discussed in detail the risk of exposure to and/or potential harm posed by the COVID-19 virus with having a surgery/procedure at this time versus the risk of delaying the surgery/procedure. It is not possible to know either the risk of delaying the surgery or procedure or chance of getting an infection with perfect accuracy, but a joint decision was made between the patient and the surgeon/proceduralist to proceed at this time with the scheduled surgery/procedure as indicated on the consent form.
--- NOTE | 2022-04-10 12:50 | PN.HOSP_ITS ---
Documented by User: Tanmay PIMENTEL 04/10/22 13:13 Subjective Subjective Patient is an 81-year-old male not appropriately alert or oriented. Patient with episodes of agitation overnight. Objective Data Objective Data Vital Signs: Vital Signs Temp Pulse Resp BP Pulse Ox 97.8 F 82 24 H 158/81 H 97 04/10/22 09:04 04/10/22 12:34 04/10/22 12:34 04/10/22 09:04 04/10/22 09:04 Oxygen Flow Rate (L/min) 4 Oxygen Delivery Method Nasal Cannula Weight: 149 lb 0.52 oz Body Mass Index (BMI) 19.1 Intake & Output: Intake and Output for Last 24 Hours 04/08/22 04/09/22 04/10/22 23:59 23:59 23:59 Intake Total 1100 / 1100 3717.50 / 3917.50 2433.33 / 2433.33 Output Total 100 / 400 1500 / 1500 Balance 1100 / 1100 3617.50 / 3517.50 933.33 / 933.33 Lab / Micro Data Result Diagrams: 04/10/22 06:28 04/10/22 06:28 Labs: Laboratory Results - last 24 hr 04/10/22 06:28: WBC 12.2 H, RBC 4.44 L, Hgb 13.4, Hct 42.6, MCV 95.9 H, MCH 30.2, MCHC 31.5 L, RDW Std Deviation 50.1 H, RDW Coeff of [place] 14.3, Plt Count 158, MPV 11.0, Immature Gran % (Auto) 0.800, Neut % (Auto) 82.1 H, Lymph % (Auto) 7.5 L, [place] % (Auto) 8.0, Eos % (Auto) 1.4, Baso % (Auto) 0.2, Absolute Neuts (auto) 10.0 H, Absolute Lymphs (auto) 0.92, Nucleated RBC % 0 04/10/22 06:28: Sodium 143, Potassium 3.9, Chloride 117 H, Carbon Dioxide 16.0 L , Anion Gap 10, BUN 29 H, Creatinine 2.05 H, Estim Creat Clear Calc 26.11, Est GFR (MDRD) Af Amer 40 L, Est GFR (MDRD) Non-Af 33 L, BUN/Creatinine Ratio 14.1, Glucose 98, Calcium 7.9 L, Magnesium 1.9 Micro: Microbiology 04/08/22 22:10 Nasal Secretion SARS-CoV-2 & FLU Antigen (Rapid) - Final Radiography Diagnostic Testing: Radiology Impression Echocardiogram 04/09/22 08:50 Interpretation Summary Segmental dysfunction with preserved ejection fraction (see wall motion). The estimated ejection fraction is 55 %. Post operative septal motion. Sigmoid septum. Mild focal mitral valve calcification of the anterior leaflet. Mild-Moderate (1-2+) mitral valve insufficiency. Mild tricuspid valve insufficiency. Trivial aortic valve insufficiency. Mild (1+) pulmonic valve insufficiency. Right ventricular systolic pressure estimated to be 38 mmHg. Diastolic function is indeterminate. Ordering Physician: Hernandez West Referring Physician: GEORGE FERNANDES Performed By: Divya Yun RDCS Physical Exam Const Orientation / Consciousness: disoriented and lethargic Exam Limitations: altered mental status HEENT head/scalp atraumatic and moist oral mucous membranes Head and Scalp: normocephalic Eyes PERRL, EOMs intact bilaterally and conjunctivae normal Neck no lymphadenopathy, supple and no JVD Resp normal respiratory effort, no retractions and no use of accessory muscles Effort and Inspection: tachypneic Cardio regular rate, regular rhythm and no JVD GI normal to inspection, nondistended, normoactive bowel sounds and soft to palpation Extremity normal to inspection, full ROM and no clubbing, cyanosis or edema Skin no rashes or lesions noted, no wounds and skin turgor normal Neuro Neuro Narrative: Unable to assess due to patient agitation. Psych Psych Narrative: Unable to assess due to patient agitation. Assessment & Plan Assessment/Plan (1) Elevated troponin: (2) Dementia: (3) Acute dehydration: (4) Acute kidney injury: PLAN: Day 1 Discharge planning: Attempting to get patient placed at SNF. 1) Elevated troponin Patient underwent echocardiogram on 04/09/2022 which demonstrated normal LV systolic function, an EF of 55%, and RVSP of 38 mmHg and indeterminate diastolic dysfunction. Echocardiogram appears to be stable from prior study. Given current altered mental status and agitation, not an ideal candidate for invasive evaluation. Recommendations from cardiology are to continue medical therapy. 2) encephalopathy Unclear etiology at this time; dementia versus delirium versus acute metabolic encephalopathy. Chest x-ray and UA are unremarkable. Rapid flu and COVID negative. Awaiting blood cultures at this time, as needed Haldol needed for agitation. 3) hypoxia Patient currently requiring 4 L to maintain oxygen saturations at 90%. Patient also with tachypnea. Chest x-ray is unremarkable. Blood cultures pending at this time, will initiate empiric Rocephin and azithromycin to cover for possible CAP and de-escalate based off of sensitivities, 4) hyperlipidemia Continue statin. DVT prophylaxis - Lovenox Patient seen by Tanmay Purcell PA-C, under the supervision of Dr. Chou. Documented by User: Dr. Haroon Chou MD 04/10/22 13:53 Objective Data Lab / Micro Data Result Diagrams: 04/10/22 06:28 04/10/22 06:28 Assessment & Plan Addt'l Comments This patient was seen in conjunction with Tanmay Purcell PA-C. I have independently interviewed and examined the patient and reviewed pertinent historical, laboratory, and other data. Please refer to Tanmay Prucell PA-C's note for details of this patient's presentation, findings, and recommendations. I have reviewed Tanmay Purcell PA-C's note and concur with documented findings. In brief, patient is a an 81-year-old gentleman with history of dementia who was admitted from home with falls, generalized weakness as well as delirium. Olman mckoy was found to have elevated troponin on admission consistent with acute non-STEMI, admitted to monitored bed where patient is currently being managed Physical Examination: but HEENT: Atraumatic; EYES; Anicteric, Normal Conjunctiva NECK; supple, normal thyroid, RESPIRATORY: Diminished to auscultation bilateral rhonchi CARDIOVASCULAR: Regular S1 S2, GI: soft, normoactive bowel sounds, : No Renal angle tenderness; EXTREMITIES: No edema, no clubbing, MUSCULOSKELETAL: no muscle wasting NEURO: Lethargic unable to properly assess SKIN: No Rash Assessment: 1. Acute non-STEMI 2. Dementia with behavioral agitation 3. Dyslipidemia 4. Leukocytosis 5. Paroxysmal A. fib 6. History of AAA with previous endovascular repair 7. Chronic kidney disease stage IV 8. DVT prophylaxis Plan 1. Plan of care with Tanmay Purcell physician student assistant. 2. Options for management were reviewed Total time spent by myself and the advanced practice practitioner evaluating patient, reviewing labs, subsequent management decisions, discussion with patient as well as other providers 45 minutes ( 25 of which was spent by myself) Charges/Coding Visit Charges Inpatient E&M: 34189 Subs Hosp L3
--- NOTE | 2022-04-10 15:03 | CASEMGMT ---
Per Dr. Cohu, Crisis to be consulted for ptCynthia Haider, PCU charge, aware. Anival MOODY CM
--- NOTE | 2022-04-10 15:52 | CASEMGMT ---
SW spoke with patient's nephew, Bismark. He brought in copies of patient's power of document review attorney and living will. SW copied documents and placed them in patient's chart. SW explained to Don that the crisis team will be in to evaluate patient for geriatric psych placement. SW explained this means they will try and find a psychiatric unit that will accept patient where he will get an evaluation. The hope is they will prescribe a medication regimen that will help with patient's confusion and agitation. LAURA told Don that nursing homes are not going to accept patient with his level of agitation and confusion. SW let Don know that crisis should talk with him also. Bismark was worried about doing the right thing for patient. SW reassured Don that he did the right thing by having patient come into the hospital to get help. Ania Daugherty PRINTED CIRCUIT BOARD LAYOUT DESIGNER KP
--- NOTE | 2022-04-10 20:09 | CPS ---
Pt is agitated at present, no treatment given. pt combative
[2022-04-10] MEDS: MELATONIN 3 MG TABLET PO (21:01)
[2022-04-11] MEDS: oxyCODONE 5 MG Tablet PO ×2 (00:36→22:33)
[2022-04-11] MEDS: QUEtiapine 25 MG Tablet PO ×2 (01:17→22:32)
[2022-04-11 02:55] VITALS: BP 114/66; PULSE 88; RESP 18; TEMP 36.6; O2SAT 97
[2022-04-11] MEDS: LORazepam 2 MG/ML Syringe IV ×4 (03:30→23:24)
[2022-04-11] MEDS: 0.9% Saline Lock 10 ML Syringe IV (03:31)
[2022-04-11 08:27] VITALS: BP 156/78; PULSE 88; RESP 20; TEMP 36.5; O2SAT 95
--- NOTE | 2022-04-11 09:00 | NURSING ---
Patient was assessed and AM medications administered. Patient appeared to swallow several times while drinking. While this RN and Lul AUTO ELECTRICAL TECHNICIAN were trying to keep patient from removing his IV a few minutes later, he began spitting his pills out onto the bed and the floor. Appeared to be most if not all of his pills Dr Chou notified.
[2022-04-11 09:21] LABS: Bacteria 0 SEEN /hpf (None Seen); Mucous, Urine 0 SEEN /hpf (<or=2+); Red Blood Cells-Urine 0 SEEN /hpf (0-5); Squamous Epithelial Cells - UA 0 SEEN /hpf (0-5); White Blood Cells 0 SEEN /hpf (0-5)
[2022-04-11 09:25] LABS: Color, Urine Yellow (Yellow); Glucose, Dipstick Normal (Normal); Ketone-Dipstick Negative (Negative); Leukocyte Esterase-Dipstick Negative /ul (Negative); Nitrite-Dipstick Negative (Negative); Occult Blood-Urine 25 /ul (Negative); Protein-Dipstick Negative (Negative); Urine Bilirubin Dipstick Negative (Negative); Urine Clarity Clear (Clear); Urine Urobilinogen Normal (Normal)
--- NOTE | 2022-04-11 09:38 | PCM.PN.HOSP ---
Documented by User: Dalila Aguilera NP-Will 04/11/22 09:53 Subjective Subjective Patient seen and examined. Patient lying in bed no distress noted. Patient recently received dose of IV Ativan for agitation and restlessness. Patient continued to be agitated and combative overnight, patient switched from Haldol to Ativan due to QT prolongation. Objective Data Objective Data Vital Signs: Vital Signs Temp Pulse Resp BP Pulse Ox 97.7 F L 88 20 H 156/78 H 95 04/11/22 08:27 04/11/22 08:27 04/11/22 08:27 04/11/22 08:27 04/11/22 08:27 Oxygen Flow Rate (L/min) 3 Oxygen Delivery Method Nasal Cannula Weight: 149 lb 0.52 oz Body Mass Index (BMI) 19.1 Intake & Output: Intake and Output for Last 24 Hours 04/09/22 04/10/22 04/11/22 23:59 23:59 23:59 Intake Total 3717.50 / 3917.50 3288.33 / 3388.33 170 / 170 Output Total 100 / 400 2150 / 2650 825 / 825 Balance 3617.50 / 3517.50 1138.33 / 738.33 -655 / -655 Lab / Micro Data Result Diagrams: 04/10/22 06:28 04/10/22 06:28 Labs: Laboratory Results - last 24 hr 04/11/22 09:00: Urine Color Yellow, Urine Clarity Clear, Urine pH 6.0, Ur Specific Carlotta 1.010, Urine Protein Negative, Urine Glucose (UA) Normal, Urine Ketones Negative, Urine Occult Blood 25 H, Urine Nitrite Negative, Urine Bilirubin Negative, Urine Urobilinogen Normal, Ur Leukocyte Esterase Negative, Urine RBC 0 SEEN, Urine WBC 0 SEEN, Ur Squamous Epith Cells 0 SEEN, Urine Bacteria 0 SEEN, Urine Mucus 0 SEEN Micro: Microbiology 04/08/22 21:32 Blood Culture (Wb) - Anticubital Right Blood Culture - Preliminary No growth in 48 hours. 04/08/22 21:20 Blood Culture (Wb) - Anticubital Left Blood Culture - Preliminary No growth in 48 hours. 04/08/22 22:10 Nasal Secretion SARS-CoV-2 & FLU Antigen (Rapid) - Final Physical Exam Const no apparent distress Orientation / Consciousness: confused and disoriented HEENT head/scalp atraumatic and moist oral mucous membranes Head and Scalp: normocephalic Eyes conjunctivae normal and no scleral icterus Neck supple Resp normal respiratory effort, normal air movement and clear to auscultation bilaterally Effort and Inspection: able to speak in complete sentences and symmetric chest movement Cardio regular rate, regular rhythm, S1 normal heart sound and S2 normal heart sound GI normal to inspection, nondistended, normoactive bowel sounds, soft to palpation and non-tender Extremity normal to inspection, full ROM and no clubbing, cyanosis or edema Skin no rashes or lesions noted and no wounds Neuro Sensorium / Orientation: orientation impaired and confused Psych Attitude: uncooperative and agitated Activity / Motor Behavior: restless Assessment & Plan Assessment/Plan (1) Dementia: QUALIFIERS: Dementia behavioral disturbance: with behavioral disturbance Dementia type: unspecified type Qualified Code(s): F03.91 - Unspecified dementia with behavioral disturbance (2) Sepsis: QUALIFIERS: Acute renal failure type: unspecified Sepsis acute organ dysfunction status: with acute organ dysfunction Sepsis type: sepsis due to unspecified organism Severe sepsis acute organ dysfunction type: acute renal failure Severe sepsis shock status: without septic shock Qualified Code(s): A41.9 - Sepsis, unspecified organism; R65.20 - Severe sepsis without septic shock; N17.9 - Acute kidney failure, unspecified (3) Acute kidney injury: PLAN: 1. Sepsis with evidence of end organ damage -White blood cell count improved from 13.7-12.2 -Creatinine remains elevated at 2.05 but has improved from yesterday -Continue azithromycin and ceftriaxone -Blood cultures pending -Continue 3 L nasal cannula, titrate to keep SPO2 greater than 92% 2. Elevated troponin -Echo demonstrates EF 55%. -Cardiology following, recommends continue medical therapy at this time due to patient's altered mental status and agitation. 3. Encephalopathy, metabolic versus delirium -Patient refusing all p.o. medications, IV Ativan for continued agitation 4. Dementia -Patient has a history of dementia however patient is not currently on a medication regimen -May be contributing to patient's encephalopathy -Patient was initiated on Seroquel however he is refusing p.o. medications DVT prophylaxis-Lovenox This patient was seen by Dalila Aguilera NP-C under the supervision of Dr. Chou. 13 minutes spent in clinical coordination of patient's plan of care. Documented by User: Dr. Haroon Chou MD 04/11/22 11:25 Objective Data Lab / Micro Data Result Diagrams: 04/10/22 06:28 04/10/22 06:28 Assessment & Plan Addt'l Comments This patient was seen in conjunction with LOUISE Young . I have independently interviewed and examined the patient and reviewed pertinent historical, laboratory, and other data. Please refer to LOUISE Young note for details of this patient's presentation, findings, and recommendations. I have reviewed LOUISE Young note and concur with documented findings. In brief, patient is a an 81-year-old gentleman with history of dementia who was admitted from home with falls, generalized weakness as well as delirium. Patient was found to have elevated troponin on admission consistent with acute non-STEMI, admitted to monitored bed where patient is currently being managed [id number]. Patient was apparently extremely agitated through the whole night. Haldol has been ordered however could not be given due to prolonged QTC. Patient was therefore given Ativan this a.m. Physical Examination: but HEENT: Atraumatic; EYES; Anicteric, Normal Conjunctiva NECK; supple, normal thyroid, RESPIRATORY: Diminished to auscultation bilateral rhonchi CARDIOVASCULAR: Regular S1 S2, GI: soft, normoactive bowel sounds, : No Renal angle tenderness; EXTREMITIES: No edema, no clubbing, MUSCULOSKELETAL: no muscle wasting NEURO: Lethargic unable to properly assess SKIN: No Rash Assessment: 1. Acute non-STEMI 2. Dementia with behavioral agitation 3. Dyslipidemia 4. Leukocytosis 5. Paroxysmal A. fib 6. History of AAA with previous endovascular repair 7. Chronic kidney disease stage IV 8. DVT prophylaxis Plan 1. Plan of care with Tanmay Purcell physician administrative assistant data entry. 2. Options for management were reviewed Total time spent by myself and the advanced practice practitioner evaluating patient, reviewing labs, subsequent management decisions, discussion with patient as well as other providers 45 minutes ( 25 of which was spent by myself) time spent by myself and the advanced practice practitioner evaluating patient, reviewing labs, subsequent management decisions, discussion with patient as well as other providers 40 minutes ( 25 of which was spent by myself) Charges/Coding Visit Charges Inpatient E&M: 18113 Subs Hosp L2 Hospital Course Consultations Consultations: Consultations 04/09/22 04:12 Consult: Cardiology Routine Consulting Provider: Hernandez West Reason for Consult: elevated troponin EMERGENT Consult: No MD Notified: Yes Date Notified: 04/09/22 Time Notified: 04:12 Method of Notification: from hospitalist Operations None
--- NOTE | 2022-04-11 10:00 | NURSING ---
Candie from crisis called to provide update. Patient has been declined by [facility]. Refferal sent to [facility].
[2022-04-11] MEDS: Enoxaparin 30 MG/0.3 ML Syringe SC (10:54)
[2022-04-11 12:11] LABS: Absolute Neutrophil Count 6.7 X10^3/uL (2.0-7.7); Basophil# 0.04 X10^3/uL; Basophil% 0.4 % (0-1); Eosinophil# 0.25 X10^3/uL; Eosinophils% 2.6 % (0-5); Hematocrit 39.6 % (40-54); Hemoglobin 12.8 g/dL (13.0-16.5); Lymphocyte % 14.7 % (19-41); Mean Corp Hgb Conc 32.3 g/dL (32-36); Mean Corpuscular Volume 95.9 fL (80-94); Mean Platelet Vol. 11.2 fl (6.2-12.0); Monocyte# 1.09 X10^3/uL; Monocyte% 11.4 % (0-10); NRBC Flagged by Analyzer 0 % (0-5); Neutrophil # 6.68 X10^3/uL (2.7-7.7); Neutrophil % 70.2 % (47-70); Platelet Count 146 K/mm3 (150-450); RBC Distribution Width CV 13.9 % (11.6-14.6); RBC Distribution Width SD 49.4 fl (35.1-43.9); Red Blood Count 4.13 M/mm3 (4.6-6.2); White Blood Count 9.5 K/mm3 (4.4-11.0)
[2022-04-11 13:06] LABS: Anion Gap 7 (5-15); BUN 30 mg/dL (7-18); BUN/Creat Ratio 13.1 RATIO (10-20); Calcium,Total 8.6 mg/dL (8.5-10.1); Chloride 114 mmol/L (98-107); Creatinine, Serum 2.29 mg/dL (0.70-1.30); EST Glomerular Filtration Rate 29 mL/min (>60); Est Glom Filt Rate - Afr Amer 35 mL/min (>60); Estimated Creatinine Clearance 23.37 ml/min; Glucose 83 mg/dL (74-106); Potassium 4.2 mmol/L (3.5-5.1); Sodium Level 144 mmol/L (136-145)
--- NOTE | 2022-04-11 13:37 | CASEMGMT ---
LAURA called [facility] and spoke with Candie regarding patient. Candie said that places are declining patient as they feel he is not medically cleared. Elevated troponins, BUN, and Creatinine. LAURA also asked if they have communicated with patient's nephew who is his Healthcare POA. Candie said they have to have one of their releases signed in order to do this. LAURA notified physician that Psych units are declining patient right now as they do not feel he is medically cleared. Physician agreed and would like Psych referrals to be put on hold for now. LAURA called Candie at [facility] and notified her of this information. LAURA told Candie someone will call them and let them know when physician feels patient is medically cleared. Candie thanked LAURA for the information. LAURA called patient's nephew Don and updated him regarding above. LAURA let Don know that crisis will resume looking for facilities once patient is medically cleared. SW will try to keep him up to date. He thanked LAURA. commissioner of conciliation was also updated. Ania Daugherty [address] LIAISON KP
[2022-04-11 15:30] VITALS: BP 121/68; PULSE 71; RESP 16; TEMP 36.6; O2SAT 97
[2022-04-11 19:51] VITALS: O2SAT 97
[2022-04-11 21:30] VITALS: BP 102/64; PULSE 84; RESP 16; TEMP 36.3; O2SAT 95
[2022-04-11] MEDS: QUEtiapine 25 MG Tablet 50 MG PO (22:33)
[2022-04-12] VITALS (8 sets, daily range): BP systolic 80–124; BP diastolic 46–70; PULSE 79–89; RESP 16–20; TEMP 36.1–37.1; O2SAT 91–99
[2022-04-12] MEDS: LORazepam 2 MG/ML Syringe IV ×4 (04:26→20:18)
[2022-04-12 06:36] LABS: Absolute Lymphocyte Count 1.16 X10^3/uL (0.83-4.51); Absolute Neutrophil Count 7.8 X10^3/uL (2.0-7.7); Basophil# 0.05 X10^3/uL; Basophil% 0.5 % (0-1); Eosinophil# 0.36 X10^3/uL; Eosinophils% 3.3 % (0-5); Hemoglobin 13.2 g/dL (13.0-16.5); Lymphocyte # 1.16 X10^3/ul (0.83-4.51); Lymphocyte % 10.5 % (19-41); Mean Corp Hgb Conc 32.2 g/dL (32-36); Mean Corpuscular Hgb 30.8 pg (27.0-32.0); Mean Corpuscular Volume 95.6 fL (80-94); Mean Platelet Vol. 11.1 fl (6.2-12.0); Monocyte# 1.63 X10^3/uL; Monocyte% 14.7 % (0-10); NRBC Flagged by Analyzer 0 % (0-5); Neutrophil % 70.5 % (47-70); POSITIVE DIFFERENTIAL YES; Platelet Count 156 K/mm3 (150-450); RBC Distribution Width SD 49.3 fl (35.1-43.9); Red Blood Count 4.29 M/mm3 (4.6-6.2); White Blood Count 11.1 K/mm3 (4.4-11.0)
[2022-04-12 06:42] LABS: Differential Indicated SCAN CRITERIA MET
[2022-04-12 07:01] LABS: Anion Gap 8 (5-15); BUN 30 mg/dL (7-18); BUN/Creat Ratio 13.1 RATIO (10-20); Calcium,Total 8.9 mg/dL (8.5-10.1); Chloride 114 mmol/L (98-107); Creatinine, Serum 2.29 mg/dL (0.70-1.30); EST Glomerular Filtration Rate 29 mL/min (>60); Est Glom Filt Rate - Afr Amer 35 mL/min (>60); Estimated Creatinine Clearance 23.37 ml/min; Glucose 74 mg/dL (74-106); Potassium 4.1 mmol/L (3.5-5.1); Sodium Level 144 mmol/L (136-145)
[2022-04-12] MEDS: Pantoprazole Sodium 40 MG Tablet PO (08:53)
[2022-04-12] MEDS: QUEtiapine 25 MG Tablet 50 MG PO ×2 (08:53→22:46)
[2022-04-12] MEDS: Aspirin 81 MG TAB.CHEW PO (08:54)
[2022-04-12] MEDS: Enoxaparin 30 MG/0.3 ML Syringe SC (08:59)
[2022-04-12] MEDS: 0.9% Saline Lock 10 ML Syringe IV (09:45)
--- NOTE | 2022-04-12 10:27 | PCM.PN.HOSP ---
Documented by User: LOUISE Young 04/12/22 10:32 Subjective Subjective Patient seen and examined. Patient lying in bed restless and agitated. Patient received Ativan every 4 hours overnight due to agitation and combativeness. Overnight patient attempted to hit and bite staff Objective Data Objective Data Vital Signs: Vital Signs Temp Pulse Resp BP Pulse Ox 97.1 F L 89 16 80/65 L 91 04/12/22 09:30 04/12/22 09:30 04/12/22 09:30 04/12/22 09:30 04/12/22 09:30 Oxygen Flow Rate (L/min) 3 Oxygen Delivery Method Room Air Weight: 149 lb 0.52 oz Body Mass Index (BMI) 19.1 Intake & Output: Intake and Output for Last 24 Hours 04/10/22 04/11/22 04/12/22 23:59 23:59 23:59 Intake Total 3288.33 / 3388.33 366.67 / 366.67 50 / 50 Output Total 2150 / 2650 1375 / 1375 Balance 1138.33 / 738.33 -1008.33 / -1008.33 50 / 50 Lab / Micro Data Result Diagrams: 04/12/22 06:30 04/12/22 06:30 Labs: Laboratory Results - last 24 hr 04/11/22 11:49: WBC 9.5, RBC 4.13 L, Hgb 12.8 L, Hct 39.6 L, MCV 95.9 H, MCH 31.0, MCHC 32.3, RDW Std Deviation 49.4 H, RDW Coeff of Chandana 13.9, Plt Count 146 L, MPV 11.2, Immature Gran % (Auto) 0.700, Neut % (Auto) 70.2 H, Lymph % (Auto) 14.7 L, [place] % (Auto) 11.4 H, Eos % (Auto) 2.6, Baso % (Auto) 0.4, Absolute Neuts (auto) 6.7, Absolute Lymphs (auto) 1.40, Nucleated RBC % 0 04/11/22 11:49: Sodium 144, Potassium 4.2, Chloride 114 H, Carbon Dioxide 23.0, Anion Gap 7, BUN 30 H, Creatinine 2.29 H, Estim Creat Clear Calc 23.37, Est GFR (MDRD) Af Amer 35 L, Est GFR (MDRD) Non-Af 29 L, BUN/Creatinine Ratio 13.1, Glucose 83, Calcium 8.6 04/12/22 06:30: WBC 11.1 H, RBC 4.29 L, Hgb 13.2, Hct 41.0, MCV 95.6 H, MCH 30.8, MCHC 32.2, RDW Std Deviation 49.3 H, RDW Coeff of Chandana 14.0, Plt Count 156, MPV 11.1, Immature Gran % (Auto) 0.500, Neut % (Auto) 70.5 H, Lymph % (Auto) 10.5 L, [place] % (Auto) 14.7 H, Eos % (Auto) 3.3, Baso % (Auto) 0.5, Absolute Neuts (auto) 7.8 H, Absolute Lymphs (auto) 1.16, Nucleated RBC % 0, Diff Path Review March04/12/22 06:30: Sodium 144, Potassium 4.1, Chloride 114 H, Carbon Dioxide 22.0, Anion Gap 8, BUN 30 H, Creatinine 2.29 H, Estim Creat Clear Calc 23.37, Est GFR (MDRD) Af Amer 35 L, Est GFR (MDRD) Non-Af 29 L, BUN/Creatinine Ratio 13.1, Glucose 74, Calcium 8.9 Micro: Microbiology 04/11/22 09:00 Urine, Catheterized Urine Culture - Preliminary Culture exhibits no growth. 04/08/22 21:32 Blood Culture (Wb) - Anticubital Right Blood Culture - Preliminary No growth in 48 hours. 04/08/22 21:20 Blood Culture (Wb) - Anticubital Left Blood Culture - Preliminary No growth in 48 hours. 04/08/22 22:10 Nasal Secretion SARS-CoV-2 & FLU Antigen (Rapid) - Final Physical Exam Const no apparent distress General Appearance: cooperative Orientation / Consciousness: confused, disoriented and lethargic Exam Limitations: altered mental status HEENT normocephalic, head/scalp atraumatic and moist oral mucous membranes Eyes conjunctivae normal and no scleral icterus Neck no lymphadenopathy and supple Lymph Lymphatic: no lymphadenopathy noted Resp normal respiratory effort, normal air movement and clear to auscultation bilaterally Effort and Inspection: able to speak in complete sentences and symmetric chest movement Cardio regular rate, regular rhythm, S1 normal heart sound, S2 normal heart sound and no JVD Rhythm: abnormal rhythm GI normal to inspection, nondistended, normoactive bowel sounds, soft to palpation and non-tender Extremity normal to inspection, full ROM and no clubbing, cyanosis or edema Skin no rashes or lesions noted, no wounds and skin turgor normal Lesions: no lesions Neuro moves all extremities Neuro Narrative: Unable to assess due to patient agitation. Sensorium / Orientation: orientation impaired and confused Psych Attitude: uncooperative and agitated Activity / Motor Behavior: restless Mood & Affect: anxious Assessment & Plan Assessment/Plan (1) Dementia: QUALIFIERS: Dementia behavioral disturbance: with behavioral disturbance Dementia type: unspecified type Qualified Code(s): F03.91 - Unspecified dementia with behavioral disturbance (2) Sepsis: QUALIFIERS: Acute renal failure type: unspecified Sepsis acute organ dysfunction status: with acute organ dysfunction Sepsis type: sepsis due to unspecified organism Severe sepsis acute organ dysfunction type: acute renal failure Severe sepsis shock status: without septic shock Qualified Code(s): A41.9 - Sepsis, unspecified organism; R65.20 - Severe sepsis without septic shock; N17.9 - Acute kidney failure, unspecified (3) Acute kidney injury: PLAN: 1. Sepsis with evidence of end organ damage -White blood cell count improved from 13.7-12.2 -Creatinine remains elevated at 2.05 but has improved from yesterday -Continue azithromycin and ceftriaxone -Blood cultures pending -Continue 3 L nasal cannula, titrate to keep SPO2 greater than 92% 2. Elevated troponin -Echo demonstrates EF 55%. -Cardiology following, recommends continue medical therapy at this time due to patient's altered mental status and agitation. 3. Encephalopathy, metabolic versus delirium -Patient refusing all p.o. medications -IV Ativan for continued agitation 4. Dementia -Patient has a history of dementia however patient is not currently on a medication regimen -May be contributing to patient's encephalopathy -Patient was initiated on Seroquel however he is refusing p.o. medications DVT prophylaxis-Lovenox This patient was seen by Dalila Aguilera NP-C under the supervision of Dr. Chou. 11 minutes spent in clinical coordination of patient's plan of care. Documented by User: Dr. Haroon Chou MD 04/12/22 12:27 Objective Data Lab / Micro Data Result Diagrams: 04/12/22 06:30 04/12/22 06:30 Assessment & Plan Addt'l Comments This patient was seen in conjunction with LOUISE Young . I have independently interviewed and examined the patient and reviewed pertinent historical, laboratory, and other data. Please refer to LOUISE Young note for details of this patient's presentation, findings, and recommendations. I have reviewed LOUISE Young note and concur with documented findings. In brief, patient is a an 81-year-old gentleman with history of dementia who was admitted from home with falls, generalized weakness as well as delirium. Patient was found to have elevated troponin on admission consistent with acute non-STEMI, admitted to monitored bed where patient is currently being managed 04/11/2022. Patient was apparently extremely agitated through the whole night. Haldol has been ordered however could not be given due to prolonged QTC. Patient was therefore given Ativan this a.m. 04/12/2022 patient seen still remains delirious but less agitated compared to previous day. Did update patient's POA his nephew Carlitos Cruz regarding patient current condition and the plan for discharge possibly to a [facility] psych unit once patient is medically stable. His expectation is to be updated if there is any significant change in patient's condition. Physical Examination: HEENT: Atraumatic; EYES; Anicteric, Normal Conjunctiva NECK; supple, normal thyroid, RESPIRATORY: Diminished to auscultation bilateral rhonchi CARDIOVASCULAR: Regular S1 S2, GI: soft, normoactive bowel sounds, : No Renal angle tenderness; EXTREMITIES: No edema, no clubbing, MUSCULOSKELETAL: no muscle wasting NEURO: Lethargic unable to properly assess SKIN: No Rash Assessment: 1. Acute non-STEMI 2. Dementia with behavioral agitation 3. Dyslipidemia 4. Leukocytosis 5. Paroxysmal A. fib 6. History of AAA with previous endovascular repair 7. Chronic kidney disease stage IV 8. DVT prophylaxis Plan 1. Plan of care with [facility] EDUCATION SPECIALIST and with patient's family 2. Options for management were reviewed Total time spent by myself and the advanced practice practitioner evaluating patient, reviewing labs, subsequent management decisions, discussion with patient as well as other providers 45 minutes ( 25 of which was spent by myself) Charges/Coding Visit Charges Inpatient E&M: 67879 Subs Hosp L2
[2022-04-12] MEDS: QUEtiapine 25 MG Tablet PO (22:46)
[2022-04-13] VITALS (7 sets, daily range): BP systolic 100–138; BP diastolic 66–81; PULSE 66–85; RESP 16–20; TEMP 36.2–36.9; O2SAT 93–99
[2022-04-13] MEDS: LORazepam 2 MG/ML Syringe IV ×5 (00:34→17:18)
[2022-04-13] MEDS: 0.9% Saline Lock 10 ML Syringe IV ×2 (00:36→09:10)
[2022-04-13 05:06] LABS: Absolute Neutrophil Count 7.2 X10^3/uL (2.0-7.7); Basophil# 0.02 X10^3/uL; Basophil% 0.2 % (0-1); Eosinophils% 3.2 % (0-5); Hematocrit 41.4 % (40-54); Hemoglobin 13.7 g/dL (13.0-16.5); Lymphocyte % 9.5 % (19-41); Mean Corp Hgb Conc 33.1 g/dL (32-36); Mean Corpuscular Hgb 30.9 pg (27.0-32.0); Mean Corpuscular Volume 93.5 fL (80-94); Mean Platelet Vol. 11.1 fl (6.2-12.0); Monocyte# 1.01 X10^3/uL; Monocyte% 10.7 % (0-10); NRBC Flagged by Analyzer 0 % (0-5); Neutrophil # 7.18 X10^3/uL (2.7-7.7); Neutrophil % 75.9 % (47-70); Platelet Count 172 K/mm3 (150-450); RBC Distribution Width CV 13.9 % (11.6-14.6); RBC Distribution Width SD 47.8 fl (35.1-43.9); Red Blood Count 4.43 M/mm3 (4.6-6.2); White Blood Count 9.5 K/mm3 (4.4-11.0)
[2022-04-13 05:20] LABS: Anion Gap 9 (5-15); BUN 31 mg/dL (7-18); BUN/Creat Ratio 13.9 RATIO (10-20); Calcium,Total 8.8 mg/dL (8.5-10.1); Chloride 117 mmol/L (98-107); Creatinine, Serum 2.23 mg/dL (0.70-1.30); EST Glomerular Filtration Rate 30 mL/min (>60); Est Glom Filt Rate - Afr Amer 36 mL/min (>60); Glucose 87 mg/dL (74-106); Sodium Level 146 mmol/L (136-145)
--- NOTE | 2022-04-13 07:14 | PCM.PN.HOSP ---
Subjective Subjective Patient overnight with continued agitation and near on the clock every 4 hour usage of Ativan to calm patient. Discussed with staff and given that he has had underlying dementia with issues prior but not the severe will obtain MRI of the brain especially to ascertain any potential stroke acutely of the frontal lobes. Discussed plan at length with nursing staff with planned continued administration of a.m. Seroquel and dosing of Ativan just prior to the MRI and in its as needed in order to obtain imaging with hold obviously for over sedation/hypoxemia. Patient without any evidence of fevers, chills, nausea, emesis, abdominal pain, chest pain or dyspnea but unable to give his own ROS. Objective Data Objective Data Vital Signs: Vital Signs Temp Pulse Resp BP Pulse Ox 98.7 F 87 18 105/60 98 04/12/22 20:00 04/12/22 20:00 04/12/22 20:00 04/12/22 20:00 04/13/22 04:00 Oxygen Flow Rate (L/min) 3 Oxygen Delivery Method Nasal Cannula Weight: 149 lb 0.52 oz Body Mass Index (BMI) 19.1 Intake & Output: Intake and Output for Last 24 Hours 04/11/22 04/12/22 04/13/22 23:59 23:59 23:59 Intake Total 366.67 / 366.67 305 / 305 Output Total 1375 / 1375 Balance -1008.33 / -1008.33 305 / 305 Lab / Micro Data Result Diagrams: 04/13/22 05:00 04/13/22 05:00 Labs: Laboratory Results - last 24 hr 04/13/22 05:00: WBC 9.5, RBC 4.43 L, Hgb 13.7, Hct 41.4, MCV 93.5, MCH 30.9, MCHC 33.1, RDW Std Deviation 47.8 H, RDW Coeff of Chandana 13.9, Plt Count 172, MPV 11.1, Immature Gran % (Auto) 0.500, Neut % (Auto) 75.9 H, Lymph % (Auto) 9.5 L, [place] % (Auto) 10.7 H, Eos % (Auto) 3.2, Baso % (Auto) 0.2, Absolute Neuts (auto) 7.2, Absolute Lymphs (auto) 0.90, Nucleated RBC % 0 04/13/22 05:00: Sodium 146 H, Potassium 4.0, Chloride 117 H, Carbon Dioxide 20.0 L, Anion Gap 9, BUN 31 H, Creatinine 2.23 H, Estim Creat Clear Calc 24.00, Est GFR (MDRD) Af Amer 36 L, Est GFR (MDRD) Non-Af 30 L, BUN/Creatinine Ratio 13.9, Glucose 87, Calcium 8.8 Micro: Microbiology 04/11/22 09:00 Urine, Catheterized Urine Culture - Preliminary Culture exhibits no growth. 04/08/22 21:32 Blood Culture (Wb) - Anticubital Right Blood Culture - Preliminary No growth in 48 hours. 04/08/22 21:20 Blood Culture (Wb) - Anticubital Left Blood Culture - Preliminary No growth in 48 hours. 04/08/22 22:10 Nasal Secretion SARS-CoV-2 & FLU Antigen (Rapid) - Final Physical Exam Narrative Physical Examination: General: Patient with recent sedated regimen, sleeping, not oriented, had been extremely agitated with staff previous to this, laying in the bed, currently calm. Skin: Normal color, normal turgor, no icterus, no cyanosis. HEENT: AT/NC, EOM unable be assessed currently given sedation, PERRLA, dry MM, poor dentition Lungs: Diminished, greater bases, no rales, ronchi or wheezing. Heart: Currently regular rate and rhythm; no gallop, rub audible. Abdomen: Soft, NTTP, ND, distant normal BS. Extremities: No cyanosis, clubbing, or edema. Neurological: Patient with recent sedated regimen, sleeping, not oriented, had been extremely agitated with staff previous to this, laying in the bed, currently calm, cognitive function decreased baseline with underlying dementia, not at his baseline, worsened aggressive behaviors; recently sedated, no obvious deficits currently witnessed however deferring CN assessment/strength. Psychiatric: Affect appears flat, sedated, currently resting, no acute evidence of depressive or anxiety feelings. Assessment & Plan Assessment/Plan (1) Acute kidney injury: (2) Elevated troponin: PLAN: The patient is an 81 y/o M w/ PMHx: CKD stage IV, COPD with former tobacco use, VTE w/ DVT/PE, HTN, HLD, PAF, Hx AAA s/p repair, CAD s/p CABG, Hx Lung CA s/p partial lung lobectomy, GERD, Dementia unclear type with behavioral disturbance history who presents to the [facility] ED on 04/09/22 with history of frequent falls at home with increased confusion and unable to care for himself with ED initial evaluation with CBC with WC 18 and mild lactic acidosis with chest x-ray unremarkable and urinalysis not marked appearing with elevated troponin concerning for NSTEMI. #1. Acute NSTEMI with CAD history status post prior CABG: EKG in ED w/ sinus bradycardia with first-degree AV block with PACs in a bigeminy pattern with a right bundle branch block, CXR w/ no acute cardiopulmonary findings and follow-up CT chest with chronic changes only, initial troponin 442. Patient admitted to PCU, maintained on monitor, cardiac enzymes cycled with initial for 42 --> 1105 --> 1894 on 04/09/2022, 04/09/2022 echocardiogram with segmental dysfunction with preserved EF, EF 55%, postoperative septal motion, mild to moderate MVI, mild TVI, trivial MICHELLE, mild PVI, RVSP 38 mmHg with indeterminate diastolic function, cardiology consulted and following with plan continue medical management, maintain on aspirin, not on statin therapy secondary to advanced age, BP low therefore unable to tolerate beta-haydee, MORENA on CKD stage IV is noted therefore would defer ED inhibitor/ARB consideration. #2. Leukocytosis with lactic acidosis, initial concern PNA, Possible aspiration which was RULED out, SEPSIS ruled out: Chest x-ray with no acute cardiopulmonary findings, CT chest/abdomen with postsurgical changes in the right upper lobe with fibrocalcific scarring, mild scarring lung bases, bilateral renal cysts, nonobstructing calculus in the upper pole cortex of the right kidney, endoluminal stent grafting of the infrarenal abdominal aortic aneurysm present. Admission CBC with WC 18.8, trended downward, concurrent lactic acidosis, potentially secondary to dehydration, 04/12/2022 CBC with WBC 11.1--> 04/13/2022 WBC 9.5 and noted to be afebrile. #3. Increased confusion on baseline underlying dementia, unclear type with intermittent behavioral disturbance history: ED work-up included CT of the brain with no acute intracranial hemorrhage or acute territorial infarction, evidence of multifocal bilateral chronic lacunar infarcts with senescent changes, patient throughout admission with significant agitation, mild QT prolongation therefore Haldol deferred with usage of as needed Ativan however despite this patient has been very aggressive hitting and biting staff. Continued on Seroquel regimen. Given ongoing agitation, will attempt with likely sedation needs MRI brain to assure for possible frontal CVA given behaviorally worsening status. #4. MORENA on Chronic Kidney Disease Stage IV: Admission BUN/Cr 36/3.05, baseline renal function primarily appears to be 1.5-2.2, patient judiciously hydrated, nephrotoxic medication temporarily held, trending continued with 04/12/2022 BUN/creatinine 30/2.29-->04/13/2022 BUN/creatinine 31/2.23, improving and nearing baseline. #5. Evidence of prior CVA: CT of the brain with multifocal bilateral chronic lacunar infarcts, will continue aspirin, unable to tolerate statin, not on any hypertensive regimen given low BP, judiciously hydrate as needed. #6. History AAA: Status postrepair, CT abdomen imaging upon presentation with noted endoluminal stent grafting of the infrarenal abdominal aortic aneurysm present. #7. History of lung cancer: Status post partial lung lobectomy, likely responsible for scarring noted on CT lung. #8. Chronic COPD: Will maintain on oxygen with wean as tolerated to room air, patient unable to tolerate DuoNeb therapy secondary to agitation, PRN albuterol, will be available. #9 PAF: BP does not allow rate agent at this time, not anticoagulated secondary to significant fall history. #10. History VTE: History of DVT, PE remotely, currently on chemoprophylactic renally dosed Lovenox only. #11. Former tobacco use: Encourage continued tobacco cessation. #12. DVT prophylaxis: SCDs, renally dosed Lovenox. #13. CODE STATUS: Full code. Charges/Coding Visit Charges Inpatient E&M: 41455 Subs Hosp L3
--- NOTE | 2022-04-13 07:15 | MRI_ITS ---
We are attempting to reach an attending provider to discuss findings. An addendum with communication details will be sent when the communication is complete. EXAM: MR HEAD WITHOUT INTRAVENOUS CONTRAST CLINICAL INDICATION: CVA, possible frontal -- TECHNIQUE: Multiplanar and multisequence MR images of the brain were obtained without intravenous contrast. This report was created using [employer] report generation technology. COMPARISON: CT head without contrast 04/08/2022. FINDINGS: BRAIN AND EXTRA-AXIAL SPACES: Scattered cortical gyral diffusion restrictions involving the cortices of the ages and right superior and middle frontal gyri, the right paracentral lobule, the right precuneus, the right cuneus and in the medial surface of the left anterior cingulate gyrus. These are also visible on the T2 FLAIR sequence and are subacute ischemic infarcts. T2 FLAIR hyperintensity foci in the white matter of both cerebral hemispheres are chronic white matter ischemic changes. No intra- or extra-axial hemorrhage. No intracranial mass or mass effect. Posterior fossa structures are unremarkable. Ventricles are appropriate for age. No hydrocephalus. Basal cisterns are patent. SELLA: Unremarkable. Normal sella turcica, pituitary gland, infundibular stalk, optic chiasm and hypothalamus. AUDITORY SYSTEM: Unremarkable. The internal auditory canals are patent. BONES/JOINTS: Unremarkable. No discrete lytic or blastic abnormalities. SINUSES: Unremarkable as visualized. Clear. MASTOID AIR CELLS: Unremarkable as visualized. Clear. ORBITS: Unremarkable as visualized. Both globes, extraocular muscles, optic nerves and retrobulbar fat appear unremarkable. VASCULATURE: Unremarkable as visualized. Normal flow voids in the major intracranial circulation. MRI/Brain without Contrast IMPRESSION: 1. Scattered subacute ischemic infarctions in the right superior and middle frontal gyri adjacent the right superior frontal sulcus, the right paracentral lobule, the right precuneus, the right cuneus and in the medial surface of the left anterior cingulate gyrus near the corpus callosum. 2. Chronic white matter ischemic changes in both cerebral hemispheres. 3. Limited study due to excessive motion. Electronically Signed: Malvin Ahmadi MD at 11:32 EDT ,
[2022-04-13] MEDS: Pantoprazole Sodium 40 MG Tablet PO (08:48)
[2022-04-13] MEDS: QUEtiapine 25 MG Tablet PO ×2 (08:48→23:12)
[2022-04-13] MEDS: Enoxaparin 30 MG/0.3 ML Syringe SC (08:48)
[2022-04-13] MEDS: QUEtiapine 25 MG Tablet 50 MG PO ×2 (08:48→23:12)
[2022-04-13] MEDS: Aspirin 81 MG TAB.CHEW PO (08:49)
--- NOTE | 2022-04-13 10:32 | NURSING ---
Pt given IV ativan to help pt rest and relax as he appeared agitated and restless today. Breakfast withheld as pt was not alert enough to eat
--- NOTE | 2022-04-13 11:55 | TELEMED_ITS ---
[facility] has confirmed receipt of a request for visit. This document confirms receipt of the order initiating the consult. To find the results of the consultation, please view the patient's reports for the scanned Telemed Consult.
[2022-04-13 12:57] LABS: Hemoglobin A1c 5.4 % (3.8-5.6)
--- NOTE | 2022-04-13 13:01 | CASEMGMT ---
Addendum entered by Melania Gil 04/13/22 15:04: Social Work Pt's nephew stopped in to see pt and asked to see SW. SW spoke w/nephew and confirmed w/him we will be working to get [place] a [place] [facility] [place]. SW explained that the SW on Friday will be working to get [place] into a [place] [facility] [place] facility. Nephew in agreement with this plan, has no preference for facility other than he does not want [facility]. SW did provide to nephew a list of [place] facilities in the preferred geographic area complete that take pt's insurance. SW explained that the SW Friday will be working off of this list. SW inquired w/nephew the [place] [facility] [place] plan. He states it will be for pt to stay at the snf. He states pt does have savings to cover the cost. SW also explained that pt has a sitter so we also need to wait until a sitter is not needed to make referrals, nephew states understanding, thanked SW for speaking w/him. SW will follow up on Friday. TORIBIO Lui Addendum entered by Melania Gil 04/13/22 13:03: Social Work PHQ-9 not completed as pt not able to participate. TORIBIO Lui Original Note: Social Work As per physician, pt had a stroke and his behaviors are consistent with the stroke. As per physician, psych placement is not needed, snf placement is needed. Physician spoke w/nephew already to let him know that SW will be working on getting pt into a snf that is able to handle pt's behaviors. SW to follow up w/family and with making referrals. Pt still has a sitter at present and therefore it is too soon to make snf referrals. SW will continue to follow. TORIBIO Lui
--- NOTE | 2022-04-13 16:30 | CDU_ITS ---
Reason For Study: CVA Rt. Velocities/BP Lt. Velocities/BP Prox CCA 78.6/13.4 cm/sec. Prox CCA 96.9/14.7 cm/sec. Mid CCA 86.4/12.1 cm/sec. Mid CCA 82.5/13.4 cm/sec. Dist CCA 89/13.4 cm/sec. Dist CCA 70.8/5.6 cm/sec. Prox ICA 112.5/25.2 cm/sec. Prox ICA 198.2/31.4 cm/sec. Mid ICA 90.4/9.5 cm/sec. Mid ICA 70.9/9.9 cm/sec. Dist ICA 61.7/8.2 cm/sec. Dist ICA 63/7.7 cm/sec. Rt. ICA/CCA = 1.43. Lt. ICA/CCA = 2.40. Prox ECA 66.9/13.4 cm/sec. Prox ECA 161.3/18.8 cm/sec. Rt. Vert. 78.6/6.9 cm/sec. Lt. Vert. 98.6/13.9 cm/sec. Right Extracranial There is homogeneous, smooth atherosclerotic plaque noted in the right common carotid artery. There is heterogeneous, irregular atherosclerotic plaque noted in the right internal carotid artery. There is heterogeneous, irregular atherosclerotic plaque noted in the right external carotid artery. Antegrade flow is noted in the right vertebral artery. Left Extracranial There is homogeneous, smooth atherosclerotic plaque noted in the left common carotid artery. There is heterogeneous, irregular atherosclerotic plaque noted in the left internal carotid artery. There is homogeneous, smooth atherosclerotic plaque noted in the left external carotid artery. Antegrade flow is noted in the left vertebral artery. Procedure Carotid Duplex [id number]. This is a Carotid Duplex examination using B-mode, color flow and specral Doppler. Technically difficult study due to patient movement. Exam performed portable in patient room. VL/Carotid Duplex Ultrasound Interpretation Summary Irregular heterogenous plaque at the proximal right internal and external carot id arteries with less than 50% stenosis of the internal carotid artery Less than 50% stenosis right external carotid artery Heterogenous irregular plaque of the proximal left internal carotid artery with 50 to 69% stenosis of the internal carotid artery Less than 50% stenosis left external carotid artery Patent and antegrade vertebral arteries bilaterally Ordering Physician: Melida Acharya Referring Physician: MD Jules Jarred Performed By: Candie Darling RVT
[2022-04-13] MEDS: Clopidogrel Bisulfate 75 MG Tablet PO (17:18)
--- NOTE | 2022-04-13 19:02 | NURSING ---
Reviewed charting for Dawna Lazo RN
[2022-04-13] MEDS: Atorvastatin Calcium 10 MG Tablet PO (23:12)
[2022-04-14] MEDS: LORazepam 2 MG/ML Syringe IV ×3 (01:27→15:47)
[2022-04-14 03:53] VITALS: BP 122/79; PULSE 85; RESP 20; TEMP 36.3; O2SAT 97
[2022-04-14 05:40] LABS: Absolute Lymphocyte Count 0.79 X10^3/uL (0.83-4.51); Absolute Neutrophil Count 8.4 X10^3/uL (2.0-7.7); Basophil# 0.03 X10^3/uL; Basophil% 0.3 % (0-1); Eosinophil# 0.22 X10^3/uL; Eosinophils% 2.1 % (0-5); Hematocrit 42.6 % (40-54); Hemoglobin 14.2 g/dL (13.0-16.5); Lymphocyte # 0.79 X10^3/ul (0.83-4.51); Lymphocyte % 7.4 % (19-41); Mean Corp Hgb Conc 33.3 g/dL (32-36); Mean Corpuscular Hgb 30.3 pg (27.0-32.0); Mean Platelet Vol. 10.9 fl (6.2-12.0); Monocyte# 1.23 X10^3/uL; Monocyte% 11.5 % (0-10); NRBC Flagged by Analyzer 0 % (0-5); Neutrophil # 8.37 X10^3/uL (2.7-7.7); Neutrophil % 78.4 % (47-70); Platelet Count 186 K/mm3 (150-450); RBC Distribution Width CV 14.3 % (11.6-14.6); RBC Distribution Width SD 47.3 fl (35.1-43.9); Red Blood Count 4.68 M/mm3 (4.6-6.2); White Blood Count 10.7 K/mm3 (4.4-11.0)
--- NOTE | 2022-04-14 05:46 | PCM.PN.HOSP ---
Subjective Subjective Overnight improved behavior per discussion with nursing staff, noted to be less agitation with specifically sitter removed from room and only needed ativan x 1. Patient upon evaluation little more fatigued this morning with temporary hold on oral medications until little more alert per discussion with nursing staff. Patient unable to give ROS however from review of records, vitals and evaluation of patient no obvious evidence of fevers, chills, nausea, emesis, abdominal pain, chest pain or dyspnea. Objective Data Objective Data Vital Signs: Vital Signs Temp Pulse Resp BP Pulse Ox 97.4 F L 85 20 H 122/79 H 97 04/14/22 03:53 04/14/22 03:53 04/14/22 03:53 04/14/22 03:53 04/14/22 03:53 Oxygen Flow Rate (L/min) 2 Oxygen Delivery Method Nasal Cannula Weight: 149 lb 0.52 oz Body Mass Index (BMI) 19.1 Intake & Output: Intake and Output for Last 24 Hours 04/12/22 04/13/22 04/14/22 23:59 23:59 23:59 Intake Total 305 / 305 90 / 90 Balance 305 / 305 90 / 90 Lab / Micro Data Result Diagrams: 04/14/22 00:30 04/14/22 00:30 Labs: Laboratory Results - last 24 hr 04/13/22 05:00: Hemoglobin A1c 5.4 04/14/22 00:30: WBC 10.7, RBC 4.68, Hgb 14.2, Hct 42.6, MCV 91.0, MCH 30.3, MCHC 33.3, RDW Std Deviation 47.3 H, RDW Coeff of Chandana 14.3, Plt Count 186, MPV 10.9, Immature Gran % (Auto) 0.300, Neut % (Auto) 78.4 H, Lymph % (Auto) 7.4 L, [place] % (Auto) 11.5 H, Eos % (Auto) 2.1, Baso % (Auto) 0.3, Absolute Neuts (auto) 8.4 H, Absolute Lymphs (auto) 0.79 L, Nucleated RBC % 0 Micro: Microbiology 04/11/22 09:00 Urine, Catheterized Urine Culture - Final Culture exhibits no growth. 04/08/22 21:32 Blood Culture (Wb) - Anticubital Right Blood Culture - Preliminary No growth in 48 hours. 05/16/22 21:20 Blood Culture (Wb) - Anticubital Left Blood Culture - Preliminary No growth in 48 hours. 04/08/22 22:10 Nasal Secretion SARS-CoV-2 & FLU Antigen (Rapid) - Final Radiography Diagnostic Testing: Radiology Impression Brain MRI 04/13/22 07:15 IMPRESSION: 1. Scattered subacute ischemic infarctions in the right superior and middle frontal gyri adjacent the right superior frontal sulcus, the right paracentral lobule, the right precuneus, the right cuneus and in the medial surface of the left anterior cingulate gyrus near the corpus callosum. 2. Chronic white matter ischemic changes in both cerebral hemispheres. 3. Limited study due to excessive motion. Electronically Signed: Malvin Ahmadi MD at 11:32 EDT , ADDENDUM: 04/13/22 1154 IMPRESSION: 1. Scattered subacute ischemic infarctions in the right superior and middle frontal gyri adjacent the right superior frontal sulcus, the right paracentral lobule, the right precuneus, the right cuneus and in the medial surface of the left anterior cingulate gyrus near the corpus callosum. 2. Chronic white matter ischemic changes in both cerebral hemispheres. 3. Limited study due to excessive motion. N.B. : The above Results were Read Back by Malvin Ahmadi MD to Malvin Frazier;[phone], RN, and understanding confirmed on 04/13/2022 11:47:23 (ET). Electronically Signed: Malvin Ahmadi MD at 11:32 EDT , Physical Exam Narrative Physical Examination: General: Patient awake, not alert, not able to answer any orientation questions, mildly irritable with evaluation but more calm than previous per discussion with staff, no obvious distress. Skin: Normal color, normal turgor, no icterus, no cyanosis. HEENT: AT/NC, EOM appear intact although difficult to have patient follow any exam requests, PERRLA, mildly dry MM, poor dentition Lungs: Diminished, greater bases, no rales, ronchi or wheezing. Heart: Regular rate and rhythm; no gallop, rub audible. Abdomen: Soft, NTTP, ND, hyperactive bowel sounds. Extremities: No cyanosis, clubbing, or edema. Neurological: Patient awake, not alert, not able to answer any orientation questions, mildly irritable with evaluation but more calm than previous per discussion with staff, no obvious distress, laying in the bed, cognitive function decreased baseline with underlying dementia, not at his baseline, worsened aggressive behaviors during admission; will not follow exam requested, moving all extremities. Psychiatric: Affect appears currently calm, no aggressive behavioral currently, no acute evidence of depressive or anxiety feelings. Assessment & Plan Assessment/Plan (1) Acute kidney injury: (2) Elevated troponin: PLAN: The patient is an 81 y/o M w/ PMHx: CKD stage IV, COPD with former tobacco use, VTE w/ DVT/PE, HTN, HLD, PAF, Hx AAA s/p repair, CAD s/p CABG, Hx Lung CA s/p partial lung lobectomy, GERD, Dementia unclear type with behavioral disturbance history who presents to the [facility] ED on 04/09/22 with history of frequent falls at home with increased confusion and unable to care for himself with ED initial evaluation with CBC with WC 18 and mild lactic acidosis with chest x-ray unremarkable and urinalysis not marked appearing with elevated troponin concerning for NSTEMI. #1. Acute NSTEMI with CAD history status post prior CABG: EKG in ED w/ sinus bradycardia with first-degree AV block with PACs in a bigeminy pattern with a right bundle branch block, CXR w/ no acute cardiopulmonary findings and follow-up CT chest with chronic changes only, initial troponin 442. Patient admitted to PCU, maintained on monitor, cardiac enzymes cycled with initial for 42 --> 1105 --> 1894 on 04/09/2022, 04/09/2022 echocardiogram with segmental dysfunction with preserved EF, EF 55%, postoperative septal motion, mild to moderate MVI, mild TVI, trivial MICHELLE, mild PVI, RVSP 38 mmHg with indeterminate diastolic function, cardiology consulted and following with plan continue medical management, maintain on aspirin, given #2 added low dose statin, BP low therefore unable to tolerate beta-haydee, MORENA on CKD stage IV is noted therefore additionally would defer ED inhibitor/ARB consideration. #2. 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 Continued on Seroquel regimen. Given ongoing agitation, 04/13/22 obtained MRI brain w/ scattered subacute ischemic infarctions in the right superior and middle frontal gyri adjacent the right superior frontal sulcus, the right paracentral lobule, the right precuneus, the right cuneus and in the medial surface of the left anterior cingulate gyrus near the corpus callosum. Will continue aspirin, added low-dose statin to see if patient will be able to tolerate this, BP not appropriate for any hypertensive, magnesium level normal, thyroid function normal, lipid panel already obtained, hemoglobin A1c 5.4%. PT/OT/ST/Nutrition consulted per protocol. Discussed patient status frankly with CM/SW and family and will need specialized placement given behavioral likely secondary to his acute frontal stroke and not any specific underlying psychiatric component. Patient with frequent fall history of note, not candidate for anticoagulation. SOC Teleneurology evaluation with recommendation if in very safe environment given fall history to start Plavix 75 mg daily x 21 days with low dose ASA then transition afterwards to 81 mg ASA only and obtain carotid US which has already been ordered and pending. 04/13-04/14/22 overnight less agitated, sitter removed and used only x 1 ativan. #2. Leukocytosis with lactic acidosis, initial concern PNA, Possible aspiration which was RULED out, SEPSIS ruled out: Chest x-ray with no acute cardiopulmonary findings, CT chest/abdomen with postsurgical changes in the right upper lobe with fibrocalcific scarring, mild scarring lung bases, bilateral renal cysts, nonobstructing calculus in the upper pole cortex of the right kidney, endoluminal stent grafting of the infrarenal abdominal aortic aneurysm present. Admission CBC with WC 18.8, trended downward, concurrent lactic acidosis, potentially secondary to dehydration, 04/12/2022 CBC with WBC 11.1--> 04/14/2022 WBC 10.7, remains afebrile. Initially treated from review of records with IV rocephin and azithromycin which were discontinued 04/13/22. #4. MORENA on Chronic Kidney Disease Stage IV: Admission BUN/Cr 36/3.05, baseline renal function primarily appears to be 1.5-2.2, patient judiciously hydrated, nephrotoxic medication temporarily held, trending continued with 04/13/2022 BUN/creatinine 31/2.23-->04/14/2022 BUN/creatinine 34/2.30. If function improves into 04/15/22 and more near at least mid baseline could consider regimen restart; however, will need to assure oral intake safe at that time. #5. History AAA: Status postrepair, CT abdomen imaging upon presentation with noted endoluminal stent grafting of the infrarenal abdominal aortic aneurysm present. #6. History of lung cancer: Status post partial lung lobectomy, likely responsible for scarring noted on CT lung. #7. Chronic COPD: Will maintain on oxygen with wean as tolerated to room air, patient unable to tolerate DuoNeb therapy secondary to agitation, PRN albuterol, will be available. #8. PAF: BP does not allow rate agent at this time, not anticoagulated secondary to significant fall history. #9. History VTE: History of DVT, PE remotely, currently on chemoprophylactic renally dosed Lovenox only. #10. Former tobacco use: Encourage continued tobacco cessation. #11. DVT prophylaxis: SCDs, renally dosed Lovenox. #12. CODE STATUS: Full code. Charges/Coding Visit Charges Inpatient E&M: 90786 Subs Hosp L2
[2022-04-14 06:11] LABS: ALB/GLOB Ratio 1.1 RATIO (0.9-2.4); AST(SGOT) 69 U/L (15-37); Alanine Aminotransfer ALT/SGPT 47 U/L (16-61); Albumin, Serum 3.3 g/dL (3.2-5.0); Alkaline Phosphatase 90 U/L (45-117); Anion Gap 11 (5-15); BUN 34 mg/dL (7-18); BUN/Creat Ratio 14.8 RATIO (10-20); Calcium,Total 8.7 mg/dL (8.5-10.1); Chloride 119 mmol/L (98-107); EST Glomerular Filtration Rate 29 mL/min (>60); Est Glom Filt Rate - Afr Amer 35 mL/min (>60); Estimated Creatinine Clearance 23.27 ml/min; Glucose 89 mg/dL (74-106); Potassium 4.3 mmol/L (3.5-5.1); Protein, Total 6.3 g/dL (6.4-8.2); Sodium Level 149 mmol/L (136-145)
[2022-04-14] MEDS: Aspirin 81 MG TAB.CHEW PO (06:46)
[2022-04-14] MEDS: Pantoprazole Sodium 40 MG Tablet PO (06:49)
[2022-04-14] MEDS: Clopidogrel Bisulfate 75 MG Tablet PO (06:49)
[2022-04-14] MEDS: Enoxaparin 30 MG/0.3 ML Syringe SC (06:49)
[2022-04-14] MEDS: Atorvastatin Calcium 10 MG Tablet PO (06:50)
[2022-04-14 07:05] VITALS: O2SAT 97
[2022-04-14 10:00] VITALS: BP 135/49; PULSE 83; RESP 20; TEMP 36.5; O2SAT 95
--- NOTE | 2022-04-14 13:04 | PCM.HOSP.N ---
Hospitalist Note CODE status: Patient HCPGLEN is his nephew. Upon admission patient had been listed as a full code but this was unverified. Given patient status and recent results of an acute stroke on several prior chronic evident, discussed CODE status at length including difference between FULL code, DNR-CCA and DNR-CC status. Following discussions about the differences in these status, POA requested he be DNR-CCA, no intubation, no acute interventions or procedures. Advanced Care Planning Face to Face Time: 16 minutes. Procedures Hospitalists Procedures: 02208 Advncd Care Plan 30 Min
[2022-04-14 15:43] VITALS: BP 130/84; PULSE 75; RESP 20; TEMP 36; O2SAT 95
[2022-04-14] MEDS: 0.9% Saline Lock 10 ML Syringe IV ×2 (15:47→21:39)
--- NOTE | 2022-04-14 20:35 | NURSING ---
04/14/22 0345 Sitter removed from bedside. pt resting in bed. bed alarm in place. room camera on.
[2022-04-14 21:37] VITALS: BP 138/98; PULSE 68; RESP 20; TEMP 36.6; O2SAT 100
[2022-04-15 03:47] VITALS: BP 128/55; PULSE 81; RESP 20; TEMP 36.3; O2SAT 98
[2022-04-15 05:21] LABS: Absolute Lymphocyte Count 0.61 X10^3/uL (0.83-4.51); Absolute Neutrophil Count 10.3 X10^3/uL (2.0-7.7); Basophil# 0.04 X10^3/uL; Basophil% 0.3 % (0-1); Eosinophil# 0.18 X10^3/uL; Eosinophils% 1.4 % (0-5); Hematocrit 45.6 % (40-54); Hemoglobin 14.9 g/dL (13.0-16.5); Lymphocyte # 0.61 X10^3/ul (0.83-4.51); Lymphocyte % 4.9 % (19-41); Mean Corp Hgb Conc 32.7 g/dL (32-36); Mean Corpuscular Hgb 30.7 pg (27.0-32.0); Mean Platelet Vol. 10.8 fl (6.2-12.0); Monocyte# 1.33 X10^3/uL; Monocyte% 10.7 % (0-10); NRBC Flagged by Analyzer 0 % (0-5); Neutrophil # 10.25 X10^3/uL (2.7-7.7); Neutrophil % 82.1 % (47-70); Platelet Count 212 K/mm3 (150-450); RBC Distribution Width CV 14.4 % (11.6-14.6); Red Blood Count 4.85 M/mm3 (4.6-6.2); White Blood Count 12.5 K/mm3 (4.4-11.0)
[2022-04-15 05:55] LABS: ALB/GLOB Ratio 0.9 RATIO (0.9-2.4); AST(SGOT) 65 U/L (15-37); Alanine Aminotransfer ALT/SGPT 51 U/L (16-61); Albumin, Serum 3.2 g/dL (3.2-5.0); Alkaline Phosphatase 91 U/L (45-117); Anion Gap 9 (5-15); BUN 34 mg/dL (7-18); Calcium,Total 8.9 mg/dL (8.5-10.1); Chloride 121 mmol/L (98-107); Creatinine, Serum 2.12 mg/dL (0.70-1.30); EST Glomerular Filtration Rate 32 mL/min (>60); Est Glom Filt Rate - Afr Amer 39 mL/min (>60); Estimated Creatinine Clearance 25.24 ml/min; Globulin 3.7 g/dL (2.2-4.2); Glucose 109 mg/dL (74-106); Potassium 4.3 mmol/L (3.5-5.1); Protein, Total 6.9 g/dL (6.4-8.2); Sodium Level 148 mmol/L (136-145)
--- NOTE | 2022-04-15 06:45 | NURSING ---
This RN spoke with pt's nephew Don, gave update about the pt's condition. Nephew would like pt to go to [facility] if possible.
[2022-04-15 07:10] VITALS: O2SAT 98
--- NOTE | 2022-04-15 09:10 | PN.HOSP_ITS ---
Subjective Subjective Has required anxiolytics due to combative behavior. Objective Data Objective Data Vital Signs: Vital Signs Temp Pulse Resp BP Pulse Ox 36.3 C L 81 20 H 128/55 H 98 04/15/22 03:47 04/15/22 03:47 04/15/22 03:47 04/15/22 03:47 04/15/22 07:10 Oxygen Flow Rate (L/min) 2 Oxygen Delivery Method Nasal Cannula Weight: 67.6 kg Body Mass Index (BMI) 19.1 Intake & Output: Intake and Output for Last 24 Hours 04/13/22 04/14/22 04/15/22 23:59 23:59 23:59 Intake Total 90 / 90 0 / 0 Balance 90 / 90 0 / 0 Lab / Micro Data Result Diagrams: 04/15/22 05:10 04/15/22 05:10 Labs: Laboratory Results - last 24 hr 04/15/22 05:10: WBC 12.5 H, RBC 4.85, Hgb 14.9, Hct 45.6, MCV 94.0, MCH 30.7, MCHC 32.7, RDW Std Deviation 49.0 H, RDW Coeff of Chandana 14.4, Plt Count 212, MPV 10.8, Immature Gran % (Auto) 0.600, Neut % (Auto) 82.1 H, Lymph % (Auto) 4.9 L, [place] % (Auto) 10.7 H, Eos % (Auto) 1.4, Baso % (Auto) 0.3, Absolute Neuts (auto) 10.3 H, Absolute Lymphs (auto) 0.61 L, Nucleated RBC % 0 04/15/22 05:10: Sodium 148 H, Potassium 4.3, Chloride 121 H, Carbon Dioxide 18.0 L, Anion Gap 9, BUN 34 H, Creatinine 2.12 H, Estim Creat Clear Calc 25.24, Est GFR (MDRD) Af Amer 39 L, Est GFR (MDRD) Non-Af 32 L, BUN/Creatinine Ratio 16.0, Glucose 109 H, Calcium 8.9, Total Bilirubin 1.20 H, AST 65 H, ALT 51, Alkaline Phosphatase 91, Total Protein 6.9, Albumin 3.2, Globulin 3.7, Albumin/Globulin Ratio 0.9 Micro: Microbiology 04/08/22 21:20 Blood Culture (Wb) - Anticubital Left Blood Culture - Final No growth in 5 days. 04/08/22 21:32 Blood Culture (Wb) - Anticubital Right Blood Culture - Final No growth in 5 days. 04/11/22 09:00 Urine, Catheterized Urine Culture - Final Culture exhibits no growth. 04/08/22 22:10 Nasal Secretion SARS-CoV-2 & FLU Antigen (Rapid) - Final Physical Exam Const Constitutional Narrative: Confused. Listless. Resp normal respiratory effort, no retractions, no use of accessory muscles and clear to auscultation bilaterally Cardio regular rate, regular rhythm, S1 normal heart sound and S2 normal heart sound GI normal to inspection, nondistended, normoactive bowel sounds, soft to palpation, non-tender and non-distended Extremity normal to inspection Assessment & Plan Assessment/Plan (1) Acute kidney injury: (2) Elevated troponin: PLAN: The patient is an 81 y/o M w/ PMHx: CKD stage IV, COPD with former tobacco use, VTE w/ DVT/PE, HTN, HLD, PAF, Hx AAA s/p repair, CAD s/p CABG, Hx Lung CA s/p partial lung lobectomy, GERD, Dementia unclear type with behavioral disturbance history who presents to the [facility] ED on 04/09/22 with history of frequent falls at home with increased confusion and unable to care for himself with ED initial evaluation with CBC with WC 18 and mild lactic acidosis with chest x-ray unremarkable and urinalysis not marked appearing with elevated troponin concerning for NSTEMI. 1. Acute NSTEMI * with CAD history status post prior CABG: * EKG in ED w/ sinus bradycardia with first-degree AV block with PACs in a bigeminy pattern with a right bundle branch block, * CXR w/ no acute cardiopulmonary findings and follow-up CT chest with chronic changes only, initial troponin 442. * cardiac enzymes cycled with initial for 42 --> 1105 --> 1894 * 04/09/2022 echocardiogram with segmental dysfunction with preserved EF, EF 55%, postoperative septal motion, mild to moderate MVI, mild TVI, trivial MICHELLE, mild PVI, RVSP 38 mmHg with indeterminate diastolic function, * cardiology consulted and following with plan continue medical management, maintain on aspirin, given #2 added low dose statin, BP low therefore unable to tolerate beta-haydee, MORENA on CKD stage IV is noted therefore additionally would defer ED inhibitor/ARB consideration. 2. 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 Continued on Seroquel regimen. * Given ongoing agitation, 04/13/22 obtained MRI brain w/ scattered subacute ischemic infarctions in the right superior and middle frontal gyri adjacent the right superior frontal sulcus, the right paracentral lobule, the right precuneus, the right cuneus and in the medial surface of the left anterior cingulate gyrus near the corpus callosum. * Will continue aspirin, added low-dose statin to see if patient will be able to tolerate this, BP not appropriate for any hypertensive, magnesium level normal, thyroid function normal, lipid panel already obtained, hemoglobin A1c 5.4%. PT/OT/ST/Nutrition consulted per protocol. * Discussed patient status frankly with CM/SW and family and will need specialized placement given behavioral likely secondary to his acute frontal stroke and not any specific underlying psychiatric component. Patient with frequent fall history of note, not candidate for anticoagulation. * SOC Teleneurology evaluation with recommendation if in very safe environment given fall history to start Plavix 75 mg daily x 21 days with low dose ASA then transition afterwards to 81 mg ASA only and obtain carotid US which has a lready been ordered and pending. 04/13-04/14/22 overnight less agitated, sitter removed and used only x 1 ativan. * 04/15: DC oxycodone. Change lorazepam to 1 mg every 6 hours as needed concern for the patient being too somnolent. Continue with Seroquel. 3. Leukocytosis with lactic acidosis, initial concern PNA, * Possible aspiration which was RULED out, * SEPSIS ruled out: * Chest x-ray with no acute cardiopulmonary findings, CT chest/abdomen with postsurgical changes in the right upper lobe with fibrocalcific scarring, mild scarring lung bases, bilateral renal cysts, nonobstructing calculus in the upper pole cortex of the right kidney, endoluminal stent grafting of the infrarenal abdominal aortic aneurysm present. Admission CBC with WC 18.8, trended downward, concurrent lactic acidosis, potentially secondary to dehydration, 04/12/2022 CBC with WBC 11.1--> 04/14/2022 WBC 10.7, remains a febrile. Initially treated from review of records with IV rocephin and azithromycin which were discontinued 04/13/22. 4. MORENA on Chronic Kidney Disease Stage IV: * Admission BUN/Cr 36/3.05, baseline renal function primarily appears to be 1.5- 2.2, patient judiciously hydrated, nephrotoxic medication temporarily held, trending continued with 04/13/2022 BUN/creatinine 31/2.23-->04/14/2022 BUN/creatinine 34/2.30. If function improves into 04/15/22 and more near at least mid baseline could consider regimen restart; however, will need to assure oral intake safe at that time. 5. Chronic conditions: * History AAA: Status postrepair, CT abdomen imaging upon presentation with noted endoluminal stent grafting of the infrarenal abdominal aortic aneurysm present. * History of lung cancer: Status post partial lung lobectomy, likely responsible for scarring noted on CT lung. * Chronic COPD: Will maintain on oxygen with wean as tolerated to room air, patient unable to tolerate DuoNeb therapy secondary to agitation, PRN albuterol, will be available. * PAF: BP does not allow rate agent at this time, not anticoagulated secondary to significant fall history. * History VTE: History of DVT, PE remotely, currently on chemoprophylactic renally dosed Lovenox only.Former tobacco use: Encourage continued tobacco cessation. 6. DVT prophylaxis: SCDs, renally dosed Lovenox. 7. CODE STATUS: Full code. Charges/Coding Visit Charges Inpatient E&M: 71816 Subs Hosp L2
[2022-04-15 09:15] VITALS: BP 139/97; PULSE 79; RESP 18; TEMP 36.2; O2SAT 98
[2022-04-15] MEDS: Enoxaparin 30 MG/0.3 ML Syringe SC (09:43)
[2022-04-15] MEDS: LORazepam 2 MG/ML Syringe IV (09:45)
[2022-04-15 15:15] VITALS: BP 128/91; PULSE 82; RESP 18; TEMP 36.3; O2SAT 99
[2022-04-15 15:31] LABS: Pathologist Review Reviewed
--- NOTE | 2022-04-15 15:41 | CASEMGMT ---
LAURA called patient's nephew Bismark. LAURA let Don know that patient may not be able to go to the alf under his insurance. LAURA explained that if patient is not able to follow commands and actively participate in therapy insurance will not approve him. Patient would then have to go private pay. LAURA also explained that finding a facility for patient may be difficult due to his behaviors. LAURA told Don that patient should go to a facility that specifically has a memory care unit as they have more experience with dementia care. LAURA named a few of the facilities; [facility], [facility], [facility], [facility], and [facility]. Bismark asked about [facility]. LAURA told him they do not have a memory care unit and SW does not want to set him up for failure by sending him to a facility that cannot manage his care. Bismark asked about [facility] and LAURA told him SW does not think they have a memory care unit, but SW can check. He also asked about [facility]. LAURA told him SW can check with [facility] also as SW thought their memory care is [place]. Don asked if he could stay in the hospital until he is more cognizant so he can go to a different facility. LAURA told patient that it is SW's understanding from reading physician's note that patient's behaviors are a result of his stroke. LAURA does not get the impression this will change. LAURA told Don we can see how he does tomorrow and go from there. Ania GOODRICH
[2022-04-15] MEDS: LORazepam 2 MG/ML Syringe 1 MG IV ×2 (16:17→23:54)
[2022-04-15 23:15] VITALS: PULSE 61; RESP 16; TEMP 36.2; O2SAT 96
[2022-04-15] MEDS: 0.9% Saline Lock 10 ML Syringe IV (23:54)
[2022-04-16 06:00] VITALS: PULSE 63; RESP 18; TEMP 35.8; O2SAT 96
[2022-04-16 06:50] LABS: Absolute Neutrophil Count 11.1 X10^3/uL (2.0-7.7); Basophil# 0.05 X10^3/uL; Basophil% 0.4 % (0-1); Eosinophil# 0.08 X10^3/uL; Eosinophils% 0.6 % (0-5); Hematocrit 51.8 % (40-54); Lymphocyte % 5.9 % (19-41); Mean Corp Hgb Conc 30.9 g/dL (32-36); Mean Corpuscular Hgb 30.1 pg (27.0-32.0); Mean Corpuscular Volume 97.6 fL (80-94); Monocyte# 1.52 X10^3/uL; Monocyte% 11.1 % (0-10); NRBC Flagged by Analyzer 0 % (0-5); Neutrophil % 81.2 % (47-70); POSITIVE DIFFERENTIAL YES; Platelet Count 216 K/mm3 (150-450); RBC Distribution Width CV 14.8 % (11.6-14.6); RBC Distribution Width SD 53.1 fl (35.1-43.9); Red Blood Count 5.31 M/mm3 (4.6-6.2); White Blood Count 13.7 K/mm3 (4.4-11.0)
[2022-04-16 06:51] LABS: Differential Indicated SCAN CRITERIA MET
[2022-04-16 07:26] LABS: Anion Gap 7 (5-15); BUN 40 mg/dL (7-18); BUN/Creat Ratio 19.1 RATIO (10-20); Calcium,Total 9.2 mg/dL (8.5-10.1); Chloride 125 mmol/L (98-107); Creatinine, Serum 2.09 mg/dL (0.70-1.30); Differential Comment SCANNED; EST Glomerular Filtration Rate 32 mL/min (>60); Est Glom Filt Rate - Afr Amer 39 mL/min (>60); Estimated Creatinine Clearance 25.61 ml/min; Glucose 118 mg/dL (74-106); Potassium 4.4 mmol/L (3.5-5.1); Sodium Level 150 mmol/L (136-145)
--- NOTE | 2022-04-16 08:04 | PN.HOSP_ITS ---
Subjective Subjective Still agitated. Objective Data Objective Data Vital Signs: Vital Signs Temp Pulse Resp BP Pulse Ox 35.8 C L 63 18 128/91 H 96 04/16/22 06:00 04/16/22 06:00 04/16/22 06:00 04/15/22 15:15 04/16/22 06:00 Oxygen Flow Rate (L/min) 2 Oxygen Delivery Method Room Air Weight: 67.6 kg Body Mass Index (BMI) 19.1 Intake & Output: Intake and Output for Last 24 Hours 04/14/22 04/15/22 04/16/22 23:59 23:59 23:59 Intake Total 0 / 0 Output Total 0 / 0 Balance 0 / 0 0 / 0 Lab / Micro Data Result Diagrams: 04/16/22 06:40 04/16/22 06:40 Labs: Laboratory Results - last 24 hr 04/12/22 06:30: Diff Path Review Reviewed 04/16/22 06:40: WBC 13.7 H, RBC 5.31, Hgb 16.0, Hct 51.8, MCV 97.6 H, MCH 30.1, MCHC 30.9 L D, RDW Std Deviation 53.1 H, RDW Coeff of Chandana 14.8 H, Plt Count 216, MPV 11.0, Immature Gran % (Auto) 0.800, Neut % (Auto) 81.2 H, Lymph % (Auto) 5.9 L, Morgan % (Auto) 11.1 H, Eos % (Auto) 0.6, Baso % (Auto) 0.4, Absolute Neuts (auto) 11.1 H, Absolute Lymphs (auto) 0.80 L, Nucleated RBC % 0, Differential Comment SCANNED, Diff Path Review March04/16/22 06:40: Sodium 150 H, Potassium 4.4, Chloride 125 H, Carbon Dioxide 18.0 L, Anion Gap 7, BUN 40 H, Creatinine 2.09 H, Estim Creat Clear Calc 25.61, Est GFR (MDRD) Af Amer 39 L, Est GFR (MDRD) Non-Af 32 L, BUN/Creatinine Ratio 19.1, Glucose 118 H, Calcium 9.2 Micro: Microbiology 04/08/22 21:20 Blood Culture (Wb) - Anticubital Left Blood Culture - Final No growth in 5 days. 04/08/22 21:32 Blood Culture (Wb) - Anticubital Right Blood Culture - Final No growth in 5 days. 04/11/22 09:00 Urine, Catheterized Urine Culture - Final Culture exhibits no growth. 04/08/22 22:10 Nasal Secretion SARS-CoV-2 & FLU Antigen (Rapid) - Final Physical Exam Const Constitutional Narrative: Confused. Does not establish eye contact. Nonverbal. Orientation / Consciousness: confused Resp normal respiratory effort, no retractions, no use of accessory muscles and clear to auscultation bilaterally Cardio regular rate, regular rhythm, S1 normal heart sound and S2 normal heart sound GI normal to inspection, nondistended, normoactive bowel sounds, soft to palpation, non-tender and non-distended Extremity normal to inspection Assessment & Plan Assessment/Plan (1) Acute kidney injury: (2) Elevated troponin: PLAN: The patient is an 81 y/o M w/ PMHx: CKD stage IV, COPD with former tobacco use, VTE w/ DVT/PE, HTN, HLD, PAF, Hx AAA s/p repair, CAD s/p CABG, Hx Lung CA s/p partial lung lobectomy, GERD, Dementia unclear type with behavioral disturbance history who presents to the [facility] ED on 04/09/22 with history of frequent falls at home with increased confusion and unable to care for himself with ED initial evaluation with CBC with WC 18 and mild lactic acidosis with chest x-ray unremarkable and urinalysis not marked appearing with elevated troponin concerning for NSTEMI. 1. Acute NSTEMI * with CAD history status post prior CABG: * EKG in ED w/ sinus bradycardia with first-degree AV block with PACs in a bigeminy pattern with a right bundle branch block, * CXR w/ no acute cardiopulmonary findings and follow-up CT chest with chronic changes only, initial troponin 442. * cardiac enzymes cycled with initial for 42 --> 1105 --> 1894 * 04/09/2022 echocardiogram with segmental dysfunction with preserved EF, EF 55%, postoperative septal motion, mild to moderate MVI, mild TVI, trivial MICHELLE, mild PVI, RVSP 38 mmHg with indeterminate diastolic function, * cardiology consulted and following with plan continue medical management, maintain on aspirin, given #2 added low dose statin, BP low therefore unable to tolerate beta-haydee, MORENA on CKD stage IV is noted therefore additionally would defer ED inhibitor/ARB consideration. 2. 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 Continued on Seroquel regimen. * Given ongoing agitation, 04/13/22 obtained MRI brain w/ scattered subacute ischemic infarctions in the right superior and middle frontal gyri adjacent the right superior frontal sulcus, the right paracentral lobule, the right precuneus, the right cuneus and in the medial surface of the left anterior cingulate gyrus near the corpus callosum. * Will continue aspirin, added low-dose statin to see if patient will be able to tolerate this, BP not appropriate for any hypertensive, magnesium level normal, thyroid function normal, lipid panel already obtained, hemoglobin A1c 5.4%. PT/OT/ST/Nutrition consulted per protocol. * Discussed patient status frankly with CM/SW and family and will need specialized placement given behavioral likely secondary to his acute frontal stroke and not any specific underlying psychiatric component. Patient with frequent fall history of note, not candidate for anticoagulation. * SOC Teleneurology evaluation with recommendation if in very safe environment given fall history to start Plavix 75 mg daily x 21 days with low dose ASA then transition afterwards to 81 mg ASA only and obtain carotid US which has already been ordered and pending. 04/13-04/14/22 overnight less agitated, sitter removed and used only x 1 ativan. * 04/15: DC oxycodone. Change lorazepam to 1 mg every 6 hours as needed concern for the patient being too somnolent. Continue with Seroquel. 3. Leukocytosis with lactic acidosis, initial concern PNA, * Possible aspiration which was RULED out, * SEPSIS ruled out: * Chest x-ray with no acute cardiopulmonary findings, CT chest/abdomen with postsurgical changes in the right upper lobe with fibrocalcific scarring, mild scarring lung bases, bilateral renal cysts, nonobstructing calculus in the upper pole cortex of the right kidney, endoluminal stent grafting of the infrarenal abdominal aortic aneurysm present. Admission CBC with WC 18.8, trended downward, concurrent lactic acidosis, potentially secondary to dehydration, 04/12/2022 CBC with WBC 11.1--> 04/14/2022 WBC 10.7, remains afebrile. Initially treated from review of records with IV rocephin and azithromycin which were discontinued 04/13/22. 4. MORENA on Chronic Kidney Disease Stage IV: * Admission BUN/Cr 36/3.05, baseline renal function primarily appears to be 1.5- 2.2, patient judiciously hydrated, nephrotoxic medication temporarily held, trending continued with 04/13/2022 BUN/creatinine 31/2.23-->04/14/2022 BUN/creatinine 34/2.30. If function improves into 04/15/22 and more near at least mid baseline could consider regimen restart; however, will need to assure oral intake safe at that time. 5. Chronic conditions: * History AAA: Status postrepair, CT abdomen imaging upon presentation with noted endoluminal stent grafting of the infrarenal abdominal aortic aneurysm present. * History of lung cancer: Status post partial lung lobectomy, likely responsible for scarring noted on CT lung. * Chronic COPD: Will maintain on oxygen with wean as tolerated to room air, patient unable to tolerate DuoNeb therapy secondary to agitation, PRN albuterol, will be available. * PAF: BP does not allow rate agent at this time, not anticoagulated secondary to significant fall history. * History VTE: History of DVT, PE remotely, currently on chemoprophylactic renally dosed Lovenox only.Former tobacco use: Encourage continued tobacco cessation. 6. DVT prophylaxis: SCDs, renally dosed Lovenox. 7. CODE STATUS: Full code. Discussed with patient's nephew, Donaldo Cruz, and discussed the patient's case thus far. Did discuss DNR Comfort Care arrest no intubation. I did discuss PEG tubes. I offered my recommendation as there is been notices significant provement in any improvement would likely not be substantial and I recommended hospice for him. He was open to discussing with hospice as well as further information but would like to talk it over with family before coming to a definitive conclusion. I did talk to him about feeding tube as an option to provide nutrition but I actually discouraged that as an option as I do not feel that would help his long-term prognosis and patient, given his agitation, would be high likelihood of pulling it out. Greater than 35 minutes of which greater than 50% of time was discussing with the patient's family about patient's care and hospice. Charges/Coding Visit Charges Inpatient E&M: 09429 Subs Hosp L3
[2022-04-16] MEDS: Enoxaparin 30 MG/0.3 ML Syringe SC (09:45)
[2022-04-16 09:55] VITALS: BP 162/86; PULSE 58; RESP 18; TEMP 36.2; O2SAT 96
[2022-04-16] MEDS: LORazepam 2 MG/ML Syringe 1 MG IV ×2 (12:34→21:48)
[2022-04-16] MEDS: 0.9% Saline Lock 10 ML Syringe IV (12:34)
[2022-04-16 12:46] LABS: Pathologist Review Reviewed
--- NOTE | 2022-04-16 14:59 | CASEMGMT ---
Physician spoke with patient's nephew Bismark about Hospice. Don was agreeable to a Hospice referral. SW called Don and explained how the process works. LAURA let Don know someone from Hospice will be calling him to set up appt. LAURA faxed referral to Hospice and also called with referral. Ania Daugherty [employer]PER[employer] KP
[2022-04-16 15:40] VITALS: BP 164/95; PULSE 58; RESP 18; TEMP 36.2; O2SAT 97
[2022-04-16 21:40] VITALS: BP 121/106; PULSE 62; RESP 18; TEMP 36.7; O2SAT 97
[2022-04-17 03:30] VITALS: BP 128/108; PULSE 63; RESP 20; TEMP 36.8; O2SAT 98
[2022-04-17 04:33] LABS: Absolute Lymphocyte Count 1.23 X10^3/uL (0.83-4.51); Basophil# 0.05 X10^3/uL; Basophil% 0.4 % (0-1); Eosinophil# 0.23 X10^3/uL; Eosinophils% 1.6 % (0-5); Hematocrit 49.5 % (40-54); Lymphocyte # 1.23 X10^3/ul (0.83-4.51); Lymphocyte % 8.6 % (19-41); Mean Corp Hgb Conc 32.3 g/dL (32-36); Mean Corpuscular Hgb 30.2 pg (27.0-32.0); Mean Corpuscular Volume 93.4 fL (80-94); Mean Platelet Vol. 10.9 fl (6.2-12.0); Monocyte# 1.57 X10^3/uL; NRBC Flagged by Analyzer 0 % (0-5); Neutrophil # 11.03 X10^3/uL (2.7-7.7); Neutrophil % 77.6 % (47-70); POSITIVE DIFFERENTIAL YES; Platelet Count 227 K/mm3 (150-450); RBC Distribution Width CV 14.7 % (11.6-14.6); RBC Distribution Width SD 50.6 fl (35.1-43.9); White Blood Count 14.2 K/mm3 (4.4-11.0)
[2022-04-17 04:54] LABS: Differential Indicated SCAN CRITERIA MET
[2022-04-17 04:59] LABS: Anion Gap 7 (5-15); BUN 41 mg/dL (7-18); BUN/Creat Ratio 19.2 RATIO (10-20); Calcium,Total 8.8 mg/dL (8.5-10.1); Chloride 117 mmol/L (98-107); Creatinine, Serum 2.13 mg/dL (0.70-1.30); EST Glomerular Filtration Rate 32 mL/min (>60); Est Glom Filt Rate - Afr Amer 38 mL/min (>60); Estimated Creatinine Clearance 25.13 ml/min; Glucose 148 mg/dL (74-106); Potassium 3.9 mmol/L (3.5-5.1); Sodium Level 147 mmol/L (136-145)
[2022-04-17 05:21] LABS: Differential Comment SCANNED
--- NOTE | 2022-04-17 08:32 | PN.HOSP_ITS ---
Subjective Subjective Still somnolent. Does not follow any commands. Objective Data Objective Data Vital Signs: Vital Signs Temp Pulse Resp BP Pulse Ox 36.8 C 63 20 H 128/108 H 98 04/17/22 03:30 04/17/22 03:30 04/17/22 03:30 04/17/22 03:30 04/17/22 03:30 Oxygen Flow Rate (L/min) 2 Oxygen Delivery Method Room Air Weight: 67.6 kg Body Mass Index (BMI) 19.1 Intake & Output: Intake and Output for Last 24 Hours 04/15/22 04/16/22 04/17/22 23:59 23:59 23:59 Intake Total 1000 / 1000 1000 / 1000 Output Total 0 / 0 Balance 1000 / 1000 1000 / 1000 Lab / Micro Data Result Diagrams: 04/17/22 04:24 04/17/22 04:24 Labs: Laboratory Results - last 24 hr 04/16/22 06:40: Diff Path Review Reviewed 04/17/22 04:24: WBC 14.2 H, RBC 5.30, Hgb 16.0, Hct 49.5, MCV 93.4, MCH 30.2, MCHC 32.3, RDW Std Deviation 50.6 H, RDW Coeff of Chandana 14.7 H, Plt Count 227, MPV 10.9, Immature Gran % (Auto) 0.800, Neut % (Auto) 77.6 H, Lymph % (Auto) 8.6 L, [place] % (Auto) 11.0 H, Eos % (Auto) 1.6, Baso % (Auto) 0.4, Absolute Neuts (auto) 11.0 H, Absolute Lymphs (auto) 1.23, Nucleated RBC % 0, Differential Comment SCANNED, Diff Path Review March04/17/22 04:24: Sodium 147 H, Potassium 3.9, Chloride 117 H, Carbon Dioxide 23.0, Anion Gap 7, BUN 41 H, Creatinine 2.13 H, Estim Creat Clear Calc 25.13, Est GFR (MDRD) Af Amer 38 L, Est GFR (MDRD) Non-Af 32 L, BUN/Creatinine Ratio 19.2, Glucose 148 H, Calcium 8.8 Micro: Microbiology 04/08/22 21:20 Blood Culture (Wb) - Anticubital Left Blood Culture - Final No growth in 5 days. 04/08/22 21:32 Blood Culture (Wb) - Anticubital Right Blood Culture - Final No growth in 5 days. 04/11/22 09:00 Urine, Catheterized Urine Culture - Final Culture exhibits no growth. 04/08/22 22:10 Nasal Secretion SARS-CoV-2 & FLU Antigen (Rapid) - Final Radiography Diagnostic Testing: Radiology Impression Carotid Duplex 04/13/22 16:30 Interpretation Summary Irregular heterogenous plaque at the proximal right internal and external carotid arteries with less than 50% stenosis of the internal carotid artery Less than 50% stenosis right external carotid artery Heterogenous irregular plaque of the proximal left internal carotid artery with 50 to 69% stenosis of the internal carotid artery Less than 50% stenosis left external carotid artery Patent and antegrade vertebral arteries bilaterally __ Ordering Physician: Melida Acharya Referring Physician: MD Jules Jarred Performed By: Candie Darling RVT Physical Exam Const Constitutional Narrative: confused. afebrile. does not follow any commands. writhes around. HEENT HEENT Narrative: temporal wasting. Resp normal respiratory effort, no retractions, no use of accessory muscles and clear to auscultation bilaterally Cardio regular rate, regular rhythm, S1 normal heart sound and S2 normal heart sound GI normal to inspection, nondistended, normoactive bowel sounds, soft to palpation, non-tender and non-distended Extremity normal to inspection Skin no rashes or lesions noted Assessment & Plan Assessment/Plan (1) Acute kidney injury: (2) Elevated troponin: PLAN: The patient is an 81 y/o M w/ PMHx: CKD stage IV, COPD with former tobacco use, VTE w/ DVT/PE, HTN, HLD, PAF, Hx AAA s/p repair, CAD s/p CABG, Hx Lung CA s/p partial lung lobectomy, GERD, Dementia unclear type with behavioral disturbance history who presents to the [facility] ED on 04/09/22 with history of frequent falls at home with increased confusion and unable to care for himself with ED initial evaluation with CBC with WC 18 and mild lactic acidosis with chest x-ray unremarkable and urinalysis not marked appearing with elevated troponin concerning for NSTEMI. 1. Acute NSTEMI * with CAD history status post prior CABG: * EKG in ED w/ sinus bradycardia with first-degree AV block with PACs in a bigeminy pattern with a right bundle branch block, * CXR w/ no acute cardiopulmonary findings and follow-up CT chest with chronic changes only, initial troponin 442. * cardiac enzymes cycled with initial for 42 --> 1105 --> 1894 * 04/09/2022 echocardiogram with segmental dysfunction with preserved EF, EF 55%, postoperative septal motion, mild to moderate MVI, mild TVI, trivial MICHELLE, mild PVI, RVSP 38 mmHg with indeterminate diastolic function, * cardiology consulted and following with plan continue medical management, maintain on aspirin, given #2 added low dose statin, BP low therefore unable to tolerate beta-haydee, MORENA on CKD stage IV is noted therefore additionally would defer ED inhibitor/ARB consideration. 2. 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 Continued on Seroquel regimen. * Given ongoing agitation, 04/13/22 obtained MRI brain w/ scattered subacute ischemic infarctions in the right superior and middle frontal gyri adjacent the right superior frontal sulcus, the right paracentral lobule, the right precuneus, the right cuneus and in the medial surface of the left anterior cingulate gyrus near the corpus callosum. * Will continue aspirin, added low-dose statin to see if patient will be able to tolerate this, BP not appropriate for any hypertensive, magnesium level normal, thyroid function normal, lipid panel already obtained, hemoglobin A1c 5.4%. PT/OT/ST/Nutrition consulted per protocol. * Discussed patient status frankly with CM/SW and family and will need specialized placement given behavioral likely secondary to his acute frontal stroke and not any specific underlying psychiatric component. Patient with frequent fall history of note, not candidate for anticoagulation. * SOC Teleneurology evaluation with recommendation if in very safe environment given fall history to start Plavix 75 mg daily x 21 days with low dose ASA then transition afterwards to 81 mg ASA only and obtain carotid US which has already been ordered and pending. 04/13-04/14/22 overnight less agitated, sitter removed and used only x 1 ativan. * 04/15: DC oxycodone. Change lorazepam to 1 mg every 6 hours as needed concern for the patient being too somnolent. Continue with Seroquel. 3. Leukocytosis with lactic acidosis, initial concern PNA, * Possible aspiration which was RULED out, * SEPSIS ruled out: * Chest x-ray with no acute cardiopulmonary findings, CT chest/abdomen with postsurgical changes in the right upper lobe with fibrocalcific scarring, mild scarring lung bases, bilateral renal cysts, nonobstructing calculus in the upper pole cortex of the right kidney, endoluminal stent grafting of the i nfrarenal abdominal aortic aneurysm present. Admission CBC with WC 18.8, trended downward, concurrent lactic acidosis, potentially secondary to dehydration, 04/12/2022 CBC with WBC 11.1--> 04/14/2022 WBC 10.7, remains afebrile. Initially treated from review of records with IV rocephin and azithromycin which were discontinued 04/13/22. 4. MORENA on Chronic Kidney Disease Stage IV: * Admission BUN/Cr 36/3.05, baseline renal function primarily appears to be 1.5- 2.2, patient judiciously hydrated, nephrotoxic medication temporarily held, trending continued with 04/13/2022 BUN/creatinine 31/2.23-->04/14/2022 BUN/creatinine 34/2.30. If function improves into 04/15/22 and more near at least mid baseline could consider regimen restart; however, will need to assure oral intake safe at that time. 5. Chronic conditions: * History AAA: Status postrepair, CT abdomen imaging upon presentation with noted endoluminal stent grafting of the infrarenal abdominal aortic aneurysm present. * History of lung cancer: Status post partial lung lobectomy, likely responsible for scarring noted on CT lung. * Chronic COPD: Will maintain on oxygen with wean as tolerated to room air, patient unable to tolerate DuoNeb therapy secondary to agitation, PRN albuterol, will be available. * PAF: BP does not allow rate agent at this time, not anticoagulated secondary to significant fall history. * History VTE: History of DVT, PE remotely, currently on chemoprophylactic renally dosed Lovenox only.Former tobacco use: Encourage continued tobacco cessation. 6. DVT prophylaxis: SCDs, renally dosed Lovenox. 7. CODE STATUS: Full code. 04/16: Discussed with patient's nephew, Carlitos Cruz, and discussed the patient's case thus far. Did discuss DNR Comfort Care arrest no intubation. I did discuss PEG tubes. I offered my recommendation as there is been notices significant provement in any improvement would likely not be substantial and I recommended hospice for him. He was open to discussing with hospice as well as further information but would like to talk it over with family before coming to a definitive conclusion. I did talk to him about feeding tube as an option to provide nutrition but I actually discouraged that as an option as I do not feel that would help his long-term prognosis and patient, given his agitation, would be high likelihood of pulling it out. 04/17: Hospice to meet with family today. Tentatively plan for inpatient hospice unit later today. Charges/Coding Visit Charges Inpatient E&M: 51004 Subs Hosp L2
[2022-04-17 09:30] VITALS: BP 153/64; PULSE 80; RESP 18; TEMP 36.7; O2SAT 100
[2022-04-17] MEDS: Enoxaparin 30 MG/0.3 ML Syringe SC (09:48)
[2022-04-17] MEDS: LORazepam 2 MG/ML Syringe 1 MG IV ×2 (12:17→20:43)
[2022-04-17] MEDS: 0.9% Saline Lock 10 ML Syringe IV ×2 (12:17→20:43)
--- NOTE | 2022-04-17 12:32 | CASEMGMT ---
SW called Xiao at Hospice. They will be meeting with patient's nephew at 5p today. Xiao said the plan after that is for patient to go to their inpatient unit. LAURA asked if he has already been approved for the inpatient unit. Xiao said he has and staff will need to set up transport. Xiao also asked if RN could call report. SW notified physician and RN. Plan: Hospice meeting with patient's nephew at 5p today and then patient will go to the Inpatient Hospice Unit. Ania GOODRICH
--- NOTE | 2022-04-17 13:07 | CASEMGMT ---
Addendum entered by Ania Daugherty 04/17/22 14:06: LAURA faxed DNR and d/c information to Hospice. Ania GOODRICH Original Note: LAURA called patient's nephew, Bismark and confirmed the plan is for him to meet with Hospice today at . Then the plan will be for patient to go to the inpatient Hospice unit. Bismark was in agreement with patient being DNRCC. LAURA notified RN, physician, and supervisor propellant charge loading. SW will put patient on will call on [facility] website portal. Plan: d/c to Inpatient Hospice unit. [facility] will transport. Ania GOODRICH
--- NOTE | 2022-04-17 13:16 | DCINST_ITS ---
Discharge Instructions Diet Discharge Diet: - (pureed, honey thickened liquids PRN comfort only.) Follow Up Care Test Results: Test results from this visit will be discussed in further detail at your follow-up appointment, if applicable. Discharge Plan Admission Admit Date/Time: 04/09/22 00:14 Primary Reason for Your Visit: NSTEMI Attending Provider: Matthew Bess Primary Care Provider: Jarred Vicente Consulting Providers: Hernandez Sandhu ; Hernandez West ; Haroon Chou ; Melida Acharya ; Jennifer Hernandez ; Haroon Hills ; Aure Terry ; Anika Almeida ; Jeannie Jesus ; Roselia Lazo SUPERVISOR [employer] Discharge Orders/Prescriptions Prescriptions: New acetaminophen [Tylenol] 325 mg Tablet 650 mg PO Q6H PRN PRN (Reason: Pain Score 1-10) Qty: 0 RF: 0 albuterol sulfate 2.5 mg /3 mL (0.083 %) Solution For Nebulization 2.5 mg inhalation Q2H PRN PRN (Reason: Dyspnea, wheezing) Qty: 0 RF: 0 lorazepam 2 mg/mL Concentrate 0.5 mg sublingual Q4H PRN PRN (Reason: Agitation) Qty: 0 RF: 0 morphine concentrate 10 mg/0.5 mL Syringe 10 mg PO/SL Q1H PRN PRN (Reason: Pain Score 6-10) Qty: 0 RF: 0 Continued ondansetron 4 MG tablet 4 mg PO Q6H PRN PRN (Reason: Nausea) Qty: 15 RF: 0 Referrals / Follow Up: Jarred Vicente MD [Primary Care Provider] - Disposition Disposition (needs filled in before D/C Order can be placed): Hospice in Medical Facility
--- NOTE | 2022-04-17 13:19 | DS.PCM_ITS ---
Providers Date of Admission: 04/09/22 Primary Care Physician: Dr. Jarred Vicente MD Consultations 04/09/22 04:12 Consult: Cardiology Routine Consulting Provider: Hernandez West Reason for Consult: elevated troponin EMERGENT Consult: No MD Notified: Yes Date Notified: 04/09/22 Time Notified: 04:12 Method of Notification: from hospitalist 04/16/22 13:34 Consult: Hospice / Palliative Care Routine Consulting Provider: [facility] Reason for Consult: Hospice information EMERGENT Consult: No MD Notified: Yes Date Notified: 04/16/22 Time Notified: 14:46 Method of Notification: per social work Reason For Visit: ELEVATED TROPONIN, CONFUSION Diagnosis Discharge Diagnosis (1) Acute kidney injury: Status: Acute Code(s): N17.9 - Acute kidney failure, unspecified (2) Elevated troponin: Status: Acute Code(s): R77.8 - Other specified abnormalities of plasma proteins (3) CVA (cerebral vascular accident): Status: Acute Code(s): I63.9 - Cerebral infarction, unspecified Medications at Discharge Home Medications ondansetron 4 mg PO Q6H PRN PRN #15 tab 10/15/21 acetaminophen [Tylenol] 650 mg PO Q6H PRN PRN #0 tab 04/17/22 albuterol sulfate 2.5 mg INHALATION Q2H PRN PRN #0 ml 04/17/22 lorazepam 0.5 mg SUBLINGUAL Q4H PRN PRN #0 ml 04/17/22 morphine concentrate 10 mg PO/SL Q1H PRN PRN #0 ea 04/17/22 Hospital Course Operations None Procedures 2-D Echocardiogram Summary of Care Provided Minutes Spent on Discharge: 40 Hospital Course: This is an 81-year-old male presents with falls and confusion. Patient was found to have a non-STEMI and was found to have a strokes as well. Patient's course did not improve. Discussions were held with the patient's nephew and I did recommend hospice on the . His nephew, who is power of litigation attorney, has agreed to that and tentative plan is for patient to go to inpatient hospice unit today. 1. Acute NSTEMI with CAD history status post prior CABG: EKG in ED w/ sinus bradycardia with first-degree AV block with PACs in a bigeminy pattern with a right bundle branch block, CXR w/ no acute cardiopulmonary findings and follow-up CT chest with chronic changes only, initial troponin 442. cardiac enzymes cycled with initial for 42 --> 1105 --> 1894 04/09/2022 echocardiogram with segmental dysfunction with preserved EF, EF 55%, postoperative septal motion, mild to moderate MVI, mild TVI, trivial MICHELLE, mild PVI, RVSP 38 mmHg with indeterminate diastolic function, cardiology consulted and following with plan continue medical management, maintain on aspirin, given #2 added low dose statin, BP low therefore unable to tolerate beta-christiano, MORENA on CKD stage IV is noted therefore additionally would defer RICHARDSON inhibitor/ARB consideration. 2. 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 Continued on Seroquel regimen. Given ongoing agitation, 04/13/22 obtained MRI brain w/ scattered subacute ischemic infarctions in the right superior and middle frontal gyri adjacent the right superior frontal sulcus, the right paracentral lobule, the right precune us, the right cuneus and in the medial surface of the left anterior cingulate gyrus near the corpus callosum. Will continue aspirin, added low-dose statin to see if patient will be able to tolerate this, BP not appropriate for any hypertensive, magnesium level normal, thyroid function normal, lipid panel already obtained, hemoglobin A1c 5.4%. PT/OT/ST/Nutrition consulted per protocol. Discussed patient status frankly with CM/SW and family and will need specialized placement given behavioral likely secondary to his acute frontal stroke and not any specific underlying psychiatric component. Patient with frequent fall history of note, not candidate for anticoagulation. SOC Teleneurology evaluation with recommendation if in very safe environment given fall history to start Plavix 75 mg daily x 21 days with low dose ASA then transition afterwards to 81 mg ASA only and obtain carotid US which has already been ordered and pending. 04/13-04/14/22 overnight less agitated, sitter removed and used only x 1 ativan. 04/15: DC oxycodone. Change lorazepam to 1 mg every 6 hours as needed concern for the patient being too somnolent. Continue with Seroquel. 3. Leukocytosis with lactic acidosis, initial concern PNA, Possible aspiration which was RULED out, SEPSIS ruled out: Chest x-ray with no acute cardiopulmonary findings, CT chest/abdomen with postsurgical changes in the right upper lobe with fibrocalcific scarring, mild scarring lung bases, bilateral renal cysts, nonobstructing calculus in the upper pole cortex of the right kidney, endoluminal stent grafting of the infrarenal abdominal aortic aneurysm present. Admission CBC with WC 18.8, trended downward, concurrent lactic acidosis, potentially secondary to dehydration, 04/12/2022 CBC with WBC 11.1--> 04/14/2022 WBC 10.7, remains afebrile. Initially treated from review of records with IV rocephin and azithromycin which were discontinued 04/13/22. 4. MORENA on Chronic Kidney Disease Stage IV: Admission BUN/Cr 36/3.05, baseline renal function primarily appears to be 1.5- 2.2, patient judiciously hydrated, nephrotoxic medication temporarily held, trending continued with 04/13/2022 BUN/creatinine 31/2.23-->04/14/2022 BUN/creatinine 34/2.30. If function improves into 04/15/22 and more near at least mid baseline could consider regimen restart; however, will need to assure oral intake safe at that time. Weight / BMI Weight Weight: 67.6 kg Body Mass Index (BMI) 19.1 ABG / Lab / Microbiology Data Result Diagrams: 04/17/22 04:24 04/17/22 04:24 Laboratory: Laboratory Results - last 24 hr 04/17/22 04:24: WBC 14.2 H, RBC 5.30, Hgb 16.0, Hct 49.5, MCV 93.4, MCH 30.2, MCHC 32.3, RDW Std Deviation 50.6 H, RDW Coeff of Chandana 14.7 H, Plt Count 227, MPV 10.9, Immature Gran % (Auto) 0.800, Neut % (Auto) 77.6 H, Lymph % (Auto) 8.6 L, [place] % (Auto) 11.0 H, Eos % (Auto) 1.6, Baso % (Auto) 0.4, Absolute Neuts (auto) 11.0 H, Absolute Lymphs (auto) 1.23, Nucleated RBC % 0, Differential Comment SCANNED, Diff Path Review March04/17/22 04:24: Sodium 147 H, Potassium 3.9, Chloride 117 H, Carbon Dioxide 23.0, Anion Gap 7, BUN 41 H, Creatinine 2.13 H, Estim Creat Clear Calc 25.13, Est GFR (MDRD) Af Amer 38 L, Est GFR (MDRD) Non-Af 32 L, BUN/Creatinine Ratio 19.2, Glucose 148 H, Calcium 8.8 Microbiology: Microbiology 04/08/22 21:20 Blood Culture (Wb) - Anticubital Left Blood Culture - Final No growth in 5 days. 04/08/22 21:32 Blood Culture (Wb) - Anticubital Right Blood Culture - Final No growth in 5 days. 04/11/22 09:00 Urine, Catheterized Urine Culture - Final Culture exhibits no growth. 04/08/22 22:10 Nasal Secretion SARS-CoV-2 & FLU Antigen (Rapid) - Final Radiography Diagnostic Testing: Radiology Impression Carotid Duplex 04/13/22 16:30 Interpretation Summary Irregular heterogenous plaque at the proximal right internal and external carotid arteries with less than 50% stenosis of the internal carotid artery Less than 50% stenosis right external carotid artery Heterogenous irregular plaque of the proximal left internal carotid artery with 50 to 69% stenosis of the internal carotid artery Less than 50% stenosis left external carotid artery Patent and antegrade vertebral arteries bilaterally Ordering Physician: Melida Acharya Referring Physician: MD Jules Jarred Performed By: Candie Darling RVT D/C Instructions Discharge Diet: - (pureed, honey thickened liquids PRN comfort only.) Meaningful Use Info Meaningful Use Diagnoses (Choose all that apply): AMI and Hemorrhagic CVA AMI/Post PCI/Angioplasty Aspirin given w/in 24hrs of arrival?: Yes ASA at discharge?: No Reason ASA not ordered:: Allergy (hospice) Statins at discharge?: No Reason statins not ordered:: Allergy (hospice) Richardson/ARB at discharge?: No Reason Richardson/ARB not ordered:: Allergy (hospice) Beta Christiano at discharge?: No Reason Beta Christiano not ordered:: Allergy (hospice) Done w/ Acute NM measure.: Yes CVA Therapy Assessed for PT,OT and/or ST?: Yes Discharge Plan Admission Admit Date/Time: 04/09/22 00:14 Primary Reason for Your Visit: NSTEMI, CVA Attending Provider: Matthew Bess Primary Care Provider: Jarred Vicente Consulting Providers: Hernandez Sandhu ; Hernandez West ; Haroon Chou ; Melida Acharya ; Jennifer Hernandez ; Haroon Hills ; Aure Terry ; Anika Almeida ; Jeannie Jesus ; Roselia Lazo [employer] Discharge Orders/Prescriptions Prescriptions: New acetaminophen [Tylenol] 325 mg Tablet 650 mg PO Q6H PRN PRN (Reason: Pain Score 1-10) Qty: 0 RF: 0 albuterol sulfate 2.5 mg /3 mL (0.083 %) Solution For Nebulization 2.5 mg inhalation Q2H PRN PRN (Reason: Dyspnea, wheezing) Qty: 0 RF: 0 lorazepam 2 mg/mL Concentrate 0.5 mg sublingual Q4H PRN PRN (Reason: Agitation) Qty: 0 RF: 0 morphine concentrate 10 mg/0.5 mL Syringe 10 mg PO/SL Q1H PRN PRN (Reason: Pain Score 6-10) Qty: 0 RF: 0 Continued ondansetron 4 MG tablet 4 mg PO Q6H PRN PRN (Reason: Nausea) Qty: 15 RF: 0 Referrals / Follow Up: Jarred Vicente MD [Primary Care Provider] - Disposition Disposition (needs filled in before D/C Order can be placed): Hospice in Medical Facility Charges/Coding Visit Charges Inpatient E&M: 00659 Disch Hosp
--- NOTE | 2022-04-17 13:35 | NURSING ---
Report called to Hospice facility, report given to nurse Lamas for pt transfer later this evening.
[2022-04-17 14:04] LABS: Pathologist Review Reviewed
--- NOTE | 2022-04-17 16:33 | CASEMGMT ---
LAURA spoke with Xiao at Hospice. LAURA can go ahead and set up transport for after 5p. LAURA told Xiao SANCHEZ will arrange for patient to get picked up at 6p. LAURA then scheduled 6p meat pickler by [facility] via their website portal. LAURA notified field secretary and charge entry specialist. Plan: d/c to [facility]. [facility] will transport via cot. Ania GOODRICH
[2022-04-17 18:10] VITALS: BP 153/64; PULSE 80; RESP 18; TEMP 36.7; O2SAT 100
[2022-04-17 20:17] VITALS: BP 133/91; PULSE 75; RESP 18; TEMP 36.5; O2SAT 90
== END 2022-04-17 21:17 | disposition hospice, inpatient (51) | DRG 64 ==
LOC: ED 23:52 → PCU 04-09 00:11
PROVIDERS: Family Medicine; Internal Medicine; Nurse Practitioner Family; Admitting Provider Family Medicine; Emergency Provider Emergency Medicine; PCP Family Medicine
DX: I63.9 Cerebral infarction, unspecified (principal); I21.4 Non-ST elevation (NSTEMI) myocardial infarction; E87.2 Acidosis; E87.0 Hyperosmolality and hypernatremia; F03.91 Unspecified dementia, unspecified severity, with behavioral disturbance; N17.9 Acute kidney failure, unspecified; N18.4 Chronic kidney disease, stage 4 (severe); E86.0 Dehydration; I48.0 Paroxysmal atrial fibrillation; I44.1 Atrioventricular block, second degree; I71.4 Abdominal aortic aneurysm, without rupture; J44.9 Chronic obstructive pulmonary disease, unspecified; E78.5 Hyperlipidemia, unspecified; I25.10 Atherosclerotic heart disease of native coronary artery without angina pectoris; I44.0 Atrioventricular block, first degree; K21.9 Gastro-esophageal reflux disease without esophagitis; I45.10 Unspecified right bundle-branch block; I12.9 Hypertensive chronic kidney disease with stage 1 through stage 4 chronic kidney disease, or unspecified chronic kidney disease; Z87.19 Personal history of other diseases of the digestive system; Z86.718 Personal history of other venous thrombosis and embolism; Z86.19 Personal history of other infectious and parasitic diseases; Z85.118 Personal history of other malignant neoplasm of bronchus and lung; Z95.1 Presence of aortocoronary bypass graft; Z86.711 Personal history of pulmonary embolism; I49.1 Atrial premature depolarization; Z87.891 Personal history of nicotine dependence; R09.02 Hypoxemia; Z90.2 Acquired absence of lung [part of]; R29.6 Repeated falls; Z66 Do not resuscitate; N20.0 Calculus of kidney; Z86.73 Personal history of transient ischemic attack (TIA), and cerebral infarction without residual deficits
CPT/HCPCS: 36415; 70450; 70551; 71045; 71250; 74150; 80048; 80053; 81001; 83036; 83605; 83735; 83880; 84443; 84484; 85025; 85610; 85730; 87040; 87086; 87428; 92526; 92610; 93005; 93306; 93880; 94640; 97110; 97162; 97167; 97530; 97535; 99285; J7030; P9612; A4216; J0696; J1940